=== PATIENT | female | born 1950 | race Caucasian/White ===

== ENCOUNTER 2017-09-03 17:00 | Inpatient (IN) | payer MEDICARE, OTHER, SELFPAY ==
[2017-09-03] VITALS (11 sets, daily range): BP systolic 103–136; BP diastolic 66–80; PULSE 80–110; RESP 14–20; TEMP 36.6–37.2; O2SAT 97–99; BMI 32.8; BMI 32.5
--- NOTE | 2017-09-03 17:09 | RAD_ITS ---
STUDY: X-RAY CHEST REASON FOR EXAM: Female, 67 years old. Chest pain TECHNIQUE: A single frontal view of the chest was obtained. COMPARISON: July 01, 2017 FINDINGS: There are minimal patchy opacities in the right upper lung. There is haziness of the left hemithorax. There are numerous surgical clips projected over the left chest. There is volume loss in the left lung. There is minimal blunting of the left costophrenic angle. The heart size cannot be evaluated. Sternotomy wires are now present. The mediastinum and hilar regions are unremarkable. Normal visualized pulmonary arteries. There are diffuse degenerative changes of the visualized thoracic spine. There are surgical changes in the cervical spine. There is an old fracture of the proximal left humerus. There is no demonstrated abnormality of the visualized upper abdomen. RAD/Chest 1 View (Portable) IMPRESSION: There are new surgical changes in the left chest. There is volume loss in the left lung. There is a small left pleural effusion. There is no evidence of pneumothorax. There are minimal patchy opacities in the right upper lung, and a developing consolidation cannot be excluded. Electronically Signed: Brooklyn Ndiaye MD at 18:28 EST Tel Direct: [phone], Service support ,
--- NOTE | 2017-09-03 17:09 | EKG12_ITS ---
Test Reason : CP Blood Pressure : / mmHG Vent. Rate : 105 BPM Atrial Rate : 105 BPM P-R Int : 148 ms QRS Dur : 080 ms QT Int : 324 ms P-R-T Axes : 055 004 105 degrees QTc Int : 428 ms Sinus tachycardia T wave abnormality, consider lateral ischemia Abnormal ECG Confirmed by ADAL MIRZA, JOSE ANGEL ([id number]), newspaper editor CONRADO GREY ([id number]) on 09/12/2017 1:10:47 PM Referred By: Confirmed By:JOSE ANGEL GALEAS MD
[2017-09-03] MEDS: Aspirin 81 MG TAB.CHEW 324 MG PO (17:21)
--- NOTE | 2017-09-03 17:46 | ED.VISSUMM ---
- ER Visit Summary Date of Service: 09/03/17 Chief Complaint: EKG changes History of Present Illness: The patient is a [address] Prieto and Dr. Bear. She reports that she has a history of a left upper lobectomy and rib removal 6 weeks ago at [facility]. She states that she has had a 20 pound weight gain since that time. She has had dyspnea on exertion for the past 6 weeks as well. She denies any chest pain. No nausea, vomiting, or diaphoresis. The patient was seen in the office today by Dr. Ho who performed an EKG and reports that it is much different than her prior EKG and sent her to the emergency department for admission. Physical Examination: Vitals: Stable. Afebrile. General: Well-nourished and well-developed. Head: Normocephalic atraumatic. Neck: Supple, no lymphadenopathy. No JVD. Nontender. Cardiovascular: Regular rate and rhythm. No murmurs. Sternal incision is clean, dry, and intact. It has healed well. Respiratory: No respiratory distress. Clear to auscultation bilaterally. Abdominal: Soft, nontender, nondistended, normal bowel sounds. No guarding, rebound, or peritoneal signs. Back: Nontender. Extremities: Nontender, 2+ pitting edema of her lower extremities bilaterally. Skin: Normal color, no rash. Neurologic: Alert and oriented ?3. Cranial nerves II through XII are intact. Normal strength and sensation. Psych: Normal affect. Test Results: EKG is sinus tach at 105 with T-wave inversions in leads I and aVL and V2. Minimal ST elevation in leads III and aVF. The patient was pain-free when this was obtained. Emergency Department Course and Treatment: The patient was treated with aspirin. I contacted Dr. Marquez shortly after her arrival to try to get a copy of her old EKG and her medical records had already closed. He states that the T-wave inversions are new. He feels that the patient needs to be admitted for an echocardiogram, rule out ACS, and cardiology consult. Patient reports that she has seen Dr. Chua of cardiology in the past. She had a stent placed in 2014. She reports that she had a stress test at [facility] in June 2017 prior to this lung surgery. Treatment Plan: This time the patient is going to be turned over to the care of the oncoming physician for follow-up on her labs and appropriate disposition. Disposition: Pending. Impression: 1. New T-wave inversions in leads I, aVL, and V2. 2. Peripheral edema. 3. Approximately 6 weeks status post left upper lobectomy. 4. Dyspnea on exertion. This note was generated with [employer] dictation software. It may contain incorrect words, spelling, and punctuation that were not noted in review of the chart prior to signing ED Disposition - Plan for ED Patient: Chief Complaint: Chest Pain Referrals: Sumit Prieto MD [Primary Care Provider] -
--- NOTE | 2017-09-03 17:54 | ED.DCSUM_ITS ---
- ER Visit Summary Date of Service: 09/03/17 Chief Complaint: EKG changes History of Present Illness: The patient is a [address] Prieto and Dr. Bear. She reports that she has a history of a left upper lobectomy and rib removal 6 weeks ago at [facility]. She states that she has had a 20 pound weight gain since that time. She has had dyspnea on exertion for the past 6 weeks as well. She denies any chest pain. No nausea, vomiting, or diaphoresis. The patient was seen in the office today by Dr. Ho who performed an EKG and reports that it is much different than her prior EKG and sent her to the emergency department for admission. Physical Examination: Vitals: Stable. Afebrile. General: Well-nourished and well-developed. Head: Normocephalic atraumatic. Neck: Supple, no lymphadenopathy. No JVD. Nontender. Cardiovascular: Regular rate and rhythm. No murmurs. Sternal incision is clean , dry, and intact. It has healed well. Respiratory: No respiratory distress. Clear to auscultation bilaterally. Abdominal: Soft, nontender, nondistended, normal bowel sounds. No guarding, rebound, or peritoneal signs. Back: Nontender. Extremities: Nontender, 2+ pitting edema of her lower extremities bilaterally. Skin: Normal color, no rash. Neurologic: Alert and oriented ?3. Cranial nerves II through XII are intact. Normal strength and sensation. Psych: Normal affect. Test Results: EKG is sinus tach at 105 with T-wave inversions in leads I and aVL and V2. Minimal ST elevation in leads III and aVF. The patient was pain- free when this was obtained. Emergency Department Course and Treatment: The patient was treated with aspirin. I contacted Dr. Marquez shortly after her arrival to try to get a copy of her old EKG and her medical records had already closed. He states that the T- wave inversions are new. He feels that the patient needs to be admitted for an echocardiogram, rule out ACS, and cardiology consult. Patient reports that she has seen Dr. Chua of cardiology in the past. She had a stent placed in 2014. She reports that she had a stress test at [facility] in June 2017 prior to this lung surgery. Treatment Plan: This time the patient is going to be turned over to the care of the oncoming physician for follow-up on her labs and appropriate disposition. Disposition: Pending. Impression: 1. New T-wave inversions in leads I, aVL, and V2. 2. Peripheral edema. 3. Approximately 6 weeks status post left upper lobectomy. 4. Dyspnea on exertion. This note was generated with [employer] dictation software. It may contain incorrect words, spelling, and punctuation that were not noted in review of the chart prior to signing ED Disposition - Plan for ED Patient: Chief Complaint: Chest Pain Referrals: Sumit Prieto MD [Primary Care Provider] -
[2017-09-03 18:00] LABS: Absolute Lymphocyte Count 1.16 X10^3/ul (0.83-4.51); Absolute Neutrophil Count 8.1 X10^3/uL (2.0-7.7); Basophil# 0.03 X10^3/uL; Basophil% 0.3 % (0-1); Eosinophil# 0.32 X10^3/uL; Hematocrit 30.8 % (37-47); Hemoglobin 9.8 g/dl (12.0-15.0); Lymphocyte # 1.16 X10^3/ul (4.0); Lymphocyte % 10.9 % (19-41); Mean Corp Hgb Conc 31.8 g/gl (32-36); Mean Corpuscular Hgb 31.3 pg (27.0-32.0); Mean Corpuscular Volume 98.4 fL (81-99); Monocyte# 1.02 X10^3/uL; Monocyte% 9.6 % (0-10); Neutrophil # 8.07 X10^3/uL (2.7-7.7); Neutrophil % 76.1 % (47-70); Platelet Count 315 K/mm3 (150-450); RBC Distribution Width SD 53.8 fl (35.1-43.9); Red Blood Count 3.13 M/mm3 (4.2-5.4); White Blood Count 10.6 K/mm3 (4.4-11.0)
[2017-09-03 18:01] LABS: POSITIVE COUNT NO; POSITIVE DIFFERENTIAL NO; POSITIVE MORPHOLOGY NO
[2017-09-03 18:22] LABS: Anion Gap 9 (5-15); BUN 13 mg/dL (7-18); BUN/Creat Ratio 11.5 RATIO (10-20); Calcium,Total 8.9 mg/dL (8.5-10.1); Chloride 96 mmol/L (98-107); Creatinine, Serum 1.13 mg/dL (0.55-1.02); EST Glomerular Filtration Rate 51 mL/min (>60); Est Glom Filt Rate - Afr Amer 62 mL/min (>60); Estimated Creatinine Clearance 42.86 ml/min; Glucose 174 mg/dL (70-110); Sodium Level 134 mmol/L (136-145)
[2017-09-03] MEDS: 0.9% Normal Saline 1,000 ML 150 ML IV (18:40)
--- NOTE | 2017-09-03 19:34 | HP.PCM_ITS ---
Problem List (1) Dyspnea on exertion Status: Acute (2) CAD (coronary artery disease) Status: Chronic Qualifiers: (3) H/O heart artery stent Status: Chronic Comment: x1 on 04/19/14 (4) Lung cancer Status: Chronic Qualifiers: (5) Obesity (BMI 30.0-34.9) Status: Chronic (6) Tobacco abuse, in remission Status: Chronic Comment: quit 2yrs ago History of Present Illness Date of Admission: 09/03/17 Chief Complaint: shortness of breath with exertion The patient is a 67 year old female patient status post left upper lobectomy for lung cancer in early July presents to the ER with shortness of breath on exertion. She was seen today in the office of Dr Prieto and and EKG showed new T wave inversions on anterior leads that weren't there prior to her surgery. She was sent in to the hospital for admission and further cardiac workup. She denies pain. She has no appetite but has had a reported 20lb weight gain since her surgery. No nausea , vomiting or diarrhea. She has requested to see Dr Hernandez for cardiology consult. She will be admitted to PCU for echocardiogram and cardiology consult. Past Medical History Past Medical History (Chronic Problems): Chronic Problems CAD (coronary artery disease) (Chronic) Goiter (Chronic) H/O heart artery stent (Chronic) x1 on 04/19/14 Lung cancer (Chronic) Obesity (BMI 30.0-34.9) (Chronic) Tobacco abuse, in remission (Chronic) quit 2yrs ago Allergies cephalexin Allergy (Verified 09/03/17 17:02) Rash Home Medications: Ambulatory Orders Medication Instructions Recorded Aspirin [Aspirin, Baby] 81 mg PO DAILY@0800 02/18/16 Atorvastatin Calcium [Lipitor] 80 mg PO QHS 02/18/16 Escitalopram Oxalate [Lexapro] 10 mg PO DAILY 02/18/16 Levothyroxine [Synthroid] 125 mcg PO DAILY 02/18/16 Metoprolol Tartrate [Lopressor 25 mg PO BID 02/18/16 (beta swati)] Albuterol Aerosols [Ventolin 2.5 mg INHALATION Q4HWA.RT 09/03/17 Aerosols] Albuterol Inhaler [Ventolin Hfa] 2 puff INHALATION 4X/DAY 09/03/17 Cholecalciferol (Vitamin D3) 5,000 unit PO DAILY 09/03/17 [Vitamin D3] Fentanyl [Fentanyl] 09/03/17 Furosemide [Lasix] 20 mg PO DAILY 09/03/17 Gabapentin [Neurontin] 09/03/17 HydromorphONE [Dilaudid] 4 mg PO Q3H PRN PRN 09/03/17 Iron Polysaccharide Complex 09/03/17 [Ferrex 150] Omeprazole [Omeprazole] 20 mg PO DAILY 09/03/17 Surgical History: - - Cardiac stent 04/19/14, hysterectomy, neck fusion, bladder suspension Psychiatric History: Depression DIVISION SERGEANT History: No pertinent DIVISION SERGEANT history Smoking Status: Never smoker - *Family History Maternal History Items: No pertinent history Paternal History Items: No pertinent history Sibling History Items: - - Brother with colon cancer age 53, sister with lung cancer- , sister #2 -CAD, COPD, DM Review of Systems Constitutional: Reports: Anorexia. Denies: Chills, Fever, Weight Change HEENT: Denies: Head Aches, Sinus Congestion, Sinus Drainage Cardiovascular: Denies: Chest Pain, Palpitations Respiratory: Reports: Shortness of breath at rest, Shortness of breath upon exertion. Denies: Cough, Sputum production, Wheezing Gastrointestinal: Denies: Abdominal Pain, Nausea, Vomiting Genitourinary: Denies: Dysuria Musculoskeletal: Denies: Joint Pain, Joint Tenderness Skin: Denies: Rash, Wounds Neurological: Denies: Numbness, Tingling, Focal weakness Psychiatric: Denies: Anxiety, Depression, Homicidal Ideations, Suicidal Ideations Hematologic/ Lymphatic: Denies: Easy Bruising, Easy Bleeding VTE Information - Inpt Only VTE Present on Admission: No VTE Mechan Device Prophylaxis: None VTE Pharm Prophylaxis ordered?: Yes Patient Problems: Active and Suspected Problems Dyspnea on exertion (Acute) - Physical Exam General: Alert, Oriented x3, Cooperative HEENT: Atraumatic, Normocephalic Neck: Supple Lungs: Clear to auscultation, Normal air movement Cardiovascular: Regular rate, Normal S1, Normal S2, No murmurs Abdomen: Bowel Sounds Present, Soft, Non Tender Extremities: No edema, Capillary Refill Less than 3 Seconds Skin: No rashes, No breakdown Musculoskeletal: No Tenderness to Palpation of Joints or Extremities Neurological: Neuro grossly intact Psych/Mental Status: Normal Affect, Appropriate Vital Signs Temp Pulse Resp BP Pulse Ox 98 F 80 14 134/70 99 09/03/17 17:01 09/03/17 19:15 09/03/17 19:15 09/03/17 19:15 09/03/17 19:15 Oxygen Flow Rate 2 Oxygen Delivery Method Room Air Weight: 191 lb Body Mass Index (BMI) 32.8 Laboratory Tests Past 24 Hrs 09/03/17 09/03/17 17:45 17:45 WBC 10.6 RBC 3.13 L Hgb 9.8 L Hct 30.8 L MCV 98.4 MCH 31.3 MCHC 31.8 L RDW 15.0 H RDW Differential 53.8 H Plt Count 315 MPV 9.0 Immature Gran % (Auto) 0.100 Neut % (Auto) 76.1 H Lymph % (Auto) 10.9 L [place] % (Auto) 9.6 Eos % (Auto) 3.0 Baso % (Auto) 0.3 Absolute Neuts (auto) 8.1 H Absolute Lymphs (auto) 1.16 Total Counted Not Reportable Sodium 134 L Potassium 4.0 Chloride 96 L Carbon Dioxide 29.0 Anion Gap 9 BUN 13 Creatinine 1.13 H Estim Creat Clear Calc 42.86 Est GFR (MDRD) Af Amer 62 Est GFR (MDRD) Non-Af 51 L BUN/Creatinine Ratio 11.5 Glucose 174 H Calcium 8.9 Troponin I < 0.02 Assessment/Plan Active and Suspected Problems Dyspnea on exertion (Acute) Chronic Problems CAD (coronary artery disease) (Chronic) Goiter (Chronic) H/O heart artery stent (Chronic) x1 on 04/19/14 Lung cancer (Chronic) Obesity (BMI 30.0-34.9) (Chronic) Tobacco abuse, in remission (Chronic) quit 2yrs ago Plan - admit to Progressive Care Unit - cycle cardiac markers - echocardiogram in am - consult Dr Hernandez for cardiology evaluation - continue routine home medications - LMWH for DVT prophylaxis - morphine,oxygen, nitro and aspirin ordered ordered per routine
[2017-09-03] MEDS: Albuterol 2.5 MG/3 ML VIAL.NEB. INHALATION (23:01)
[2017-09-03] MEDS: Atorvastatin Calcium 80 MG Tablet PO (23:19)
[2017-09-03] MEDS: Metoprolol Tartrate 25 MG Tablet PO (23:19)
[2017-09-03] MEDS: Escitalopram Oxalate 10 MG Tablet PO (23:19)
[2017-09-04] VITALS (15 sets, daily range): BP systolic 131–141; BP diastolic 86–92; PULSE 95–122; RESP 16–20; TEMP 36.6–37.5; O2SAT 94–98
[2017-09-04 05:20] LABS: Hematocrit 29.5 % (37-47); Hemoglobin 9.5 g/dl (12.0-15.0); Mean Corp Hgb Conc 32.2 g/gl (32-36); Mean Corpuscular Hgb 31.6 pg (27.0-32.0); Mean Platelet Vol. 8.1 fl (6.2-12.0); Platelet Count 320 K/mm3 (150-450); RBC Distribution Width CV 14.6 % (11.6-14.6); RBC Distribution Width SD 49.9 fl (35.1-43.9); Red Blood Count 3.01 M/mm3 (4.2-5.4); White Blood Count 8.3 K/mm3 (4.4-11.0)
[2017-09-04 05:21] LABS: Scan Indicated on CBC? Y/N NO
[2017-09-04] MEDS: Levothyroxine 125 MCG Tablet PO (05:22)
--- NOTE | 2017-09-04 05:30 | EKG12_ITS ---
Test Reason : AM Blood Pressure : / mmHG Vent. Rate : 113 BPM Atrial Rate : 113 BPM P-R Int : 164 ms QRS Dur : 080 ms QT Int : 324 ms P-R-T Axes : 050 003 097 degrees QTc Int : 444 ms Sinus tachycardia T wave abnormality, consider lateral ischemia Abnormal ECG When compared with ECG of 03-SEP-2017 17:08, MANUAL COMPARISON REQUIRED, DATA IS UNCONFIRMED Confirmed by ADAL MIRZA, JOSE ANGEL ([id number]), editorial assistant CONRADO GREY ([id number]) on 09/10/2017 3:30:24 PM Referred By: SUSI Confirmed By:JOSE ANGEL GALEAS MD
[2017-09-04 05:37] LABS: Anion Gap 8 (5-15); BUN 12 mg/dL (7-18); BUN/Creat Ratio 12.4 RATIO (10-20); Calcium,Total 8.9 mg/dL (8.5-10.1); Chloride 101 mmol/L (98-107); Creatinine, Serum 0.97 mg/dL (0.55-1.02); EST Glomerular Filtration Rate 61 mL/min (>60); Est Glom Filt Rate - Afr Amer 74 mL/min (>60); Estimated Creatinine Clearance 49.93 ml/min; Glucose 124 mg/dL (70-110); Potassium 4.1 mmol/L (3.5-5.1); Sodium Level 139 mmol/L (136-145)
--- NOTE | 2017-09-04 05:55 | ECHOCS_ITS ---
Reason For Study: dyspnea/SOB Procedure This was a 2D Doppler, Color Flow transthoracic echocardiogram. The study was technically difficult. The study was technically limited. Contrast injection was performed. Exam performed portable in patient room. Left Ventricle Normal LV size. Left ventricular systolic function is normal. The estimated ejection fraction is 65 %. No regional wall motion abnormalities noted. Right Ventricle Normal RV size. Normal systolic function. Atria The left atrium is mildly enlarged. Normal right atrium. Mitral Valve Mitral valve not well visualized. Tricuspid Valve The tricuspid valve is not well visualized. Aortic Valve The aortic valve is not well visualized. Pulmonic Valve The pulmonic valve is not well visualized. Great Vessels Normal aortic root. The pulmonary artery is normal size. Normal inferior vena cava. Pericardium/Pleural No pericardial effusion. Medication Definity0.5ml given slow IV push to enhance endocardial definition. MMode/2D Measurements & Calculations LVIDd: 4.5 cm IVSd: 1.00 cm Ao root diam: 2.7 cm LVIDs: 2.7 cm LVPWd: 1.00 cm LA dimension: 3.8 cm RVDd: 3.2 cm FS: 39.5 % LAV(MOD-bp): 58.9 ml LAV(MOD-bp) Indexed: 30.8 ml/m2 LA A4 area: 22.7 cm2 RA A4 area: 11.7 cm2 LAV(MOD-sp2): 34.7 ml LAV(MOD-sp4): 63.4 ml Doppler Measurements & Calculations MV E max julius: 97.0 cm/sec Lat Peak E' Julius: 10.3 cm/sec Ao V2 max: 99.4 cm/sec MV A max julius: 137.8 cm/sec E/E' lat: 9.4 Ao max P.0 mmHg MV E/A: 0.70 LV V1 max: 76.5 cm/sec PA V2 max: 90.6 cm/sec TR max julius: 259.3 cm/sec LV V1 max P.3 mmHg TR max P.9 mmHg Interpretation Summary Normal LV size. Left ventricular systolic function is normal. The estimated ejection fraction is 65 %. Contrast injection was performed. Ordering Physician: Sumeet Velazquez Referring Physician: Yfn Bear Performed By: Marichuy Stark RDCS, RVT
--- NOTE | 2017-09-04 08:46 | STRESSREP ---
Stress Test Report - Stress Test Report Stress Test Report: Pharmacologic myocardial perfusion stress test 67-year-old lady with a history of EKG abnormalities. Stress protocol: Resting EKG demonstrates sinus tachycardia with a rate of 111 bpm. Resting blood pressure is 138/82 mmHg. A 0.4 mg of regadenoson was infused per usual protocol followed by rapid intravenous saline flush injection. Continuous EKG monitoring was performed. At rest there were nonspecific ST-T wave changes noted at peak infusion nonspecific ST-T wave changes were noted. The maximum heart rate attained was 137 bpm which was 88% of the maximum predicted heart rate the maximum workload attained was 1 metabolic equivalents. The resting blood pressure was 138/82 with a peak blood pressure 152/80. Myocardial perfusion protocol. 14.1 mCi of technetium 99m sestamibi was injected at rest. 0.4 mg of regadenoson was infused per usual protocol. At peak infusion 43.6 mCi of technetium 99m sestamibi was injected. Stress images were obtained. Stress and rest images were reconstructed and compared in the short axis vertical long and horizontal long axis. Gated images were also obtained. Gated SPECT analysis: Gated ejection fraction is 69% Conclusion: Normal pharmacologic myocardial perfusion stress test. Preserved ejection fraction.
[2017-09-04] MEDS: Metoprolol Tartrate 25 MG Tablet PO ×2 (09:19→21:31)
[2017-09-04] MEDS: Pantoprazole Sodium 20 MG Tablet PO (09:20)
[2017-09-04] MEDS: Furosemide 20 MG Tablet PO (09:20)
[2017-09-04] MEDS: Aspirin 81 MG TAB.CHEW PO (09:20)
[2017-09-04] MEDS: Enoxaparin 40 MG/0.4 ML Syringe SC (09:20)
--- NOTE | 2017-09-04 09:43 | CASEMGMT ---
Addendum entered by Leslie Sanford 09/04/17 13:22: This RN CM to bedside to complete CM assessment and physical chemist is at bedside with pt at this time. Will attempt again later. Priya FU CM Original Note: Addendum entered by Leslie Sanford 09/04/17 11:14: This RN CM to bedside to complete CM assessment and pt is currently getting any ECHO at this time. Priya FU CM Original Note: This RN CM to bedside to complete assessment and pt is sleeping without distress. Pt does not awaken to verbal stimuli or knock on the door. Will attempt again later. Priya FU CM
[2017-09-04] MEDS: Albuterol 2.5 MG/3 ML VIAL.NEB. INHALATION ×3 (10:39→19:25)
--- NOTE | 2017-09-04 14:53 | CASEMGMT ---
Face to Face with patient for initial transition planning/care coordination assessment. [place] introduced self and role at [facility], pt voices understanding and consents to assessment at this time. Pt lying in bed in no distress at this time. Pt A/O x4 at this time and answers all questions appropriately but does fall back to sleep when not stimulated verbally. Care providers, pharmacy, and demographics verified. See attached link. Pt voices no further concerns/needs at this time. Advised pt to ask for CM if any further questions/concerns/needs arise, voices understanding. CM to follow for any further discharge planning/needs. [place]
--- NOTE | 2017-09-04 15:20 | CHAPLAIN ---
Type of Pastoral Visit _x__ Initial Visit ___ Follow-up Visit ___ On-call Visit ___ General Patient Visit ___ Spiritual Assessment ___ Family Conference ___ Bereavement ___ Rapid Response ___ Code Blue ___ Other (describe below) Pastoral Care Referral From _x__ Patient ___ Family ___ Nurse ___ Physician ___ [employer] Aircraft Mechanic ___ Leather Worker ___ Other (describe below) Sacrament/Intervention _x__ Active listening ___ Anointing ___ Mu-Ism ___ Bereavement ___ Communion _x__ Juil exploration ___ ___ Life review _x__ Prayer ___ Reconciliation ___ Sacrament of Sick _x__ Supportive presence ___ Wedding ___ Other (describe below) Pastoral Comments
--- NOTE | 2017-09-04 15:54 | CT_ITS ---
STUDY: CTA CHEST REASON FOR EXAM: Female, 67 years old. Chest pain, shortness of breath, history of lung cancer RADIATION DOSAGE (If Supplied By Facility): CTDIvol = ( 11.43 ) mGy, DLP = ( 504.98 ) mGycm TECHNIQUE: The examination was performed with the intravenous administration of 75 ml of Isovue 370 contrast material. Post-processing of the angiographic images was performed, with multiplanar reformation and 3D reconstruction. Individualized dose optimization techniques were used for this CT. COMPARISON: PET/CT scan dated April 02, 2017 FINDINGS: Normal enhancement of the main pulmonary artery and right and left pulmonary arteries. Normal enhancement of the bilateral peripheral pulmonary arteries. There is no demonstrated pulmonary embolism. There are minimal calcifications in the thoracic aorta. The aorta is normal in diameter. There is no demonstrated aortic dissection. The heart is normal in size. Coronary artery calcifications are present. There are surgical changes in the left upper mediastinum. There are surgical changes in the left hilum. Normal visualized trachea and bronchi. There is volume loss on the left side after left upper lobectomy. There are patchy airspace opacities scattered in the right upper lobe and superior segment of the left lower lobe. There are coarse markings in the posterior segment of the right lower lobe. There is minimal pleural thickening in the left hemithorax. There is scarring along the left chest wall. There are surgical changes in the cervical spine. Sternotomy wires are present. There are moderate degenerative changes in the visualized spine. There are rib abnormalities in numerous anterior left ribs after surgery. There are no acute abnormalities in the upper abdomen. CT/CTA Chest W/WO Contrast IMPRESSION: No evidence of pulmonary embolism. There are surgical changes on the left side after left upper lobectomy. There are patchy airspace opacities scattered in the right upper lobe and superior segment of the left lower lobe showing air bronchograms. These areas are worrisome for infection. There is no pleural effusion or significant lymphadenopathy. There is minimal atelectasis in the right lower lobe. Electronically Signed: Brooklyn Ndiaye MD at 19:00 EST Tel Direct: [phone], Service support ,
--- NOTE | 2017-09-04 17:39 | NURSING ---
To CT per WC
[2017-09-04 18:38] LABS: Thyroid Stim Hormone (TSH) 1.01 uIU/mL (0.358-3.74)
[2017-09-04] MEDS: Atorvastatin Calcium 80 MG Tablet PO (21:31)
[2017-09-04] MEDS: Escitalopram Oxalate 10 MG Tablet PO (21:32)
[2017-09-04] MEDS: HYDROmorphone 2 MG TABLET 4 MG PO (21:55)
--- NOTE | 2017-09-04 22:03 | PN_ITS ---
Patient Problems: Active and Suspected Problems Dyspnea on exertion (Acute) Subjective: Patient is a 67-year-old female with past medical history of lung cancer, status post left upper lobe lobectomy on 07-31, coronary artery disease, PTCA with stent on 04/19/2014, cervical fusion, COPD, obesity, former smoker and hypothyroidism who was sent to [facility] emergency room by Dr. Ho on 09/03 because of dyspnea on exertion with an EKG showing new T-wave inversions the anterior leads. Vital signs at presentation to the ER were temperature 98, pulse rate 105, blood pressure 128/66, respiratory rate of 19 and she was 99% saturated on a 2 L nasal cannula and 99% saturated on room air. Blood cell count was normal at 10.6 with 76% neutrophils. Hemoglobin was 9.8 and the platelets are 315,000. Sodium was mildly decreased at 134 with a chloride of 96 and a creatinine of 1.13 with a BUN of 13. She admits to having decreased appetite and stated that she has lost 20 pounds since her surgery. Random blood sugar was 174 at admission. She will troponin was less than 0.02. Chest x-ray shows patchy opacities in the right upper lobe and a small left pleural effusion. Serial cardiac enzymes were negative and she had a pharmacologic nuclear stress test that was negative for ischemia and the gated nuclear ejection fraction was 69%. Telemetry showed no significant ectopy. Heart rate since midnight has ranged from 101 to 122. She is now 96% saturated on a 4 L nasal cannula. CTA of the chest was negative for pulmonary emboli but does show patchy opacities in the right upper lobe and the superior segment of the left lower lobe. she feels SOB and she has been coughing. she denies CP. No nausea, vomiting, no abd pain, no sore throat. - Physical Exam General: Alert, Oriented x3, Cooperative, - - She looks very fatigued HEENT: Atraumatic, PERRLA Oral: Moist Mucosa, No Gingival or Mucosal Lesions/ Ulcerations Neck: Supple Lungs: No wheeze, Rhonchi - in the RUL posteriorly initially and these did clear somewhat after a few deep breaths, no rales Cardiovascular: Regular Rhythm, Normal S1, Normal S2, No murmurs, No Gallop, Tachycardic Abdomen: Bowel Sounds Present, Soft, Non Tender, Non-Distended Extremities: No cyanosis, No edema Skin: No rashes, No breakdown Neurological: Cranial nerves II-XII grossly intact, Neuro grossly intact Psych/Mental Status: Normal Affect, Appropriate Vital Signs Temp Pulse Resp BP Pulse Ox 99.5 F 122 16 133/86 96 09/04/17 20:51 09/04/17 21:31 09/04/17 20:51 09/04/17 20:51 09/04/17 20:51 Oxygen Flow Rate 4 Oxygen Delivery Method Nasal Cannula Weight: 189 lb 9.561 oz Body Mass Index (BMI) 32.5 Intake and Output for Last 24 Hours 09/02/17 09/03/17 09/04/17 23:59 23:59 23:59 Intake Total 220 505 Output Total 350 Balance 220 155 Laboratory Tests Past 24 Hrs 09/03/17 09/04/17 09/04/17 21:33 01:32 05:10 WBC 8.3 RBC 3.01 L Hgb 9.5 L Hct 29.5 L MCV 98.0 MCH 31.6 MCHC 32.2 RDW 14.6 RDW Differential 49.9 H Plt Count 320 MPV 8.1 Sodium Potassium Chloride Carbon Dioxide Anion Gap BUN Creatinine Estim Creat Clear Calc Est GFR (MDRD) Af Amer Est GFR (MDRD) Non-Af BUN/Creatinine Ratio Glucose Calcium Troponin I < 0.02 < 0.02 TSH 09/04/17 09/04/17 09/04/17 05:10 08:30 08:30 WBC RBC Hgb Hct MCV MCH MCHC RDW RDW Differential Plt Count MPV Sodium 139 Potassium 4.1 Chloride 101 Carbon Dioxide 30.0 Anion Gap 8 BUN 12 Creatinine 0.97 Estim Creat Clear Calc 49.93 Est GFR (MDRD) Af Amer 74 Est GFR (MDRD) Non-Af 61 BUN/Creatinine Ratio 12.4 Glucose 124 H Calcium 8.9 Troponin I < 0.02 TSH 1.01 Assessment/Plan Active and Suspected Problems Dyspnea on exertion (Acute) Impressions 1. tachycardia with dyspnea on exertion with a negative stress, normal TSH, negative CTA for PE's.....suspect pneumonia and will need to treat for HAP since she was in the hospital 6 weeks ago for CARY lobectomy for lung CA. Will start Levaquin and Vanco and order cultures, sputum culture, respiratory panel, urine for Legionella and streptococcal antigens and an MRSA nasal swab. IS 2. lung CA with CARY lobectomy 07-31. 3. Elevated blood sugar with no history of diabetes mellitus - check hgba1c 4. Coronary artery disease with history of coronary stent on 04/19/2014. 5. Obesity 6. 20 pound weight loss since 07/16/17 7. HAP 8. Tobacco abuse, in remission 9. Hypothyroidism 10. anxiety/depression-continue Lexapro 11. Dyslipidemia 12. COPD 13. hx of cervical fusion - likely also has radiculopathy since she is on gabapentin will discuss with Dr. Prieto in the AM
[2017-09-05] VITALS (15 sets, daily range): BP systolic 117–141; BP diastolic 77–88; PULSE 94–132; RESP 16–20; TEMP 36.6–37.4; O2SAT 93–96
--- NOTE | 2017-09-05 01:02 | NURSING ---
09/04/17 2340 THIS RN ATTEMPTED X 3 TO GET IV SITE, CALLED [employer] TO START.
[2017-09-05] MEDS: HYDROmorphone 2 MG TABLET 4 MG PO ×4 (01:35→20:33)
[2017-09-05] MEDS: Levothyroxine 125 MCG Tablet PO (05:48)
[2017-09-05 06:08] LABS: ALB/GLOB Ratio 0.5 RATIO (0.9-2.4); AST(SGOT) 18 U/L (15-37); Alanine Aminotransfer ALT/SGPT 14 U/L (12-78); Albumin, Serum 2.5 g/dL (3.4-5.0); Alkaline Phosphatase 101 U/L (45-117); Anion Gap 9 (5-15); BUN 10 mg/dL (7-18); BUN/Creat Ratio 11.3 RATIO (10-20); Calcium,Total 8.6 mg/dL (8.5-10.1); Chloride 100 mmol/L (98-107); Creatinine, Serum 0.88 mg/dL (0.55-1.02); EST Glomerular Filtration Rate 68 mL/min (>60); Est Glom Filt Rate - Afr Amer 83 mL/min (>60); Estimated Creatinine Clearance 55.04 ml/min; Globulin 4.7 g/dL (2.2-4.2); Glucose 129 mg/dL (70-110); Magnesium 1.9 mg/dL (1.8-2.4); Phosphorus 3.4 mg/dL (2.5-4.9); Potassium 3.7 mmol/L (3.5-5.1); Protein, Total 7.2 g/dL (6.4-8.2); Sodium Level 138 mmol/L (136-145)
[2017-09-05 06:12] LABS: Absolute Lymphocyte Count 0.52 X10^3/ul (0.83-4.51); Absolute Neutrophil Count 5.9 X10^3/uL (2.0-7.7); Basophil# 0.04 X10^3/uL; Basophil% 0.5 % (0-1); Eosinophil# 0.28 X10^3/uL; Eosinophils% 3.4 % (0-5); Hematocrit 28.8 % (37-47); Hemoglobin 9.2 g/dl (12.0-15.0); Lymphocyte # 0.52 X10^3/ul (4.0); Lymphocyte % 6.2 % (19-41); Mean Corp Hgb Conc 31.9 g/gl (32-36); Mean Corpuscular Hgb 31.1 pg (27.0-32.0); Mean Corpuscular Volume 97.3 fL (81-99); Mean Platelet Vol. 8.5 fl (6.2-12.0); Monocyte% 19.2 % (0-10); Neutrophil # 5.89 X10^3/uL (2.7-7.7); Neutrophil % 70.5 % (47-70); Platelet Count 343 K/mm3 (150-450); RBC Distribution Width CV 14.4 % (11.6-14.6); RBC Distribution Width SD 48.9 fl (35.1-43.9); Red Blood Count 2.96 M/mm3 (4.2-5.4); White Blood Count 8.4 K/mm3 (4.4-11.0)
[2017-09-05 06:14] LABS: Differential Indicated SCAN CRITERIA MET; POSITIVE COUNT NO; POSITIVE DIFFERENTIAL YES; POSITIVE MORPHOLOGY NO
[2017-09-05] MEDS: Albuterol 2.5 MG/3 ML VIAL.NEB. INHALATION ×3 (07:15→19:41)
--- NOTE | 2017-09-05 07:16 | PN_ITS ---
Patient Problems: Active and Suspected Problems Dyspnea on exertion (Acute) Subjective: Day #2 vancomycin and Levaquin All events of the past 24 hours have been reviewed. Stress test was negative for ischemia. Ejection fraction is preserved. CTA of the chest was negative for pulmonary emboli but positive for patchy infiltrates in the right upper lobe and the left lower lobe. Patient was started on Levaquin and vancomycin for hospital-acquired pneumonia. She is afebrile with a temp of 98 today. HR goes up as high as 150'-160's at times and it is regular. She is 99% on a 2 L nasal cannula currently. Fluid balance since admission is +5 L. She is complaining of sweats, feeling hot and then cold. she has a cough but the sputum looks mostly clear. She denies CP but admits to having SOB. She states that the pain in the left ankle has now spread up the medial calf. MRSA, respiratory panel, Legionella and streptococcal antigens are all negative. Influenza swab is negative. The MRSA nasal swab is negative. - Physical Exam General: Alert, Oriented x3, Cooperative, - - she looks pale and very fatigued. she is diaphoretic HEENT: Atraumatic, PERRLA, Normocephalic Oral: Moist Mucosa Neck: Supple, JVD, Bilateral - mild Lungs: Clear to auscultation, No rhonchi, No wheeze, No rales, Diminished Cardiovascular: Regular Rhythm, No rub noted, No Gallop, Tachycardic Abdomen: Bowel Sounds Present, Soft, Non Tender, Non-Distended Extremities: Edema - ankles. There is no erythema or increased warmth Left ankle and she has no hyperaesthesia. There is negative homans and negative jahaira. Neurological: Cranial nerves II-XII grossly intact, Neuro grossly intact Vital Signs Temp Pulse Resp BP Pulse Ox 99.4 F 107 16 132/82 96 09/05/17 05:41 09/05/17 05:41 09/05/17 05:41 09/05/17 05:41 09/05/17 05:41 Oxygen Flow Rate 2 Oxygen Delivery Method Nasal Cannula Weight: 189 lb 9.561 oz Body Mass Index (BMI) 32.5 Intake and Output for Last 24 Hours 09/03/17 09/04/17 09/05/17 23:59 23:59 23:59 Intake Total 220 745 425 Output Total 850 Balance 220 -105 425 Microbiology Past 72 Hours 09/04/17 23:30 Influenza Types A,B Direct FA (NINO) - Final Mucosa - Nose 09/04/17 Unknown Streptococcus pneumoniae Antigen (M - Final Urine, Clean Catch 09/04/17 Unknown Legionella Antigen - Final Urine, Clean Catch Laboratory Tests Past 24 Hrs 09/04/17 09/04/17 09/04/17 08:30 08:30 22:35 WBC RBC Hgb Hct MCV MCH MCHC RDW RDW Differential Plt Count MPV Immature Gran % (Auto) Neut % (Auto) Lymph % (Auto) Morrison % (Auto) Eos % (Auto) Baso % (Auto) Absolute Neuts (auto) Absolute Lymphs (auto) Total Counted Sodium Potassium Chloride Carbon Dioxide Anion Gap BUN Creatinine Estim Creat Clear Calc Est GFR (MDRD) Af Amer Est GFR (MDRD) Non-Af BUN/Creatinine Ratio Glucose Hemoglobin A1c 7.0 H Calcium Phosphorus Magnesium Total Bilirubin AST ALT Alkaline Phosphatase Troponin I < 0.02 Total Protein Albumin Globulin Albumin/Globulin Ratio TSH 1.01 MRSA (PCR) 09/05/17 09/05/17 09/05/17 05:20 05:20 06:00 WBC 8.4 RBC 2.96 L Hgb 9.2 L Hct 28.8 L MCV 97.3 MCH 31.1 MCHC 31.9 L RDW 14.4 RDW Differential 48.9 H Plt Count 343 MPV 8.5 Immature Gran % (Auto) 0.200 Neut % (Auto) 70.5 H Lymph % (Auto) 6.2 L Morrison % (Auto) 19.2 H Eos % (Auto) 3.4 Baso % (Auto) 0.5 Absolute Neuts (auto) 5.9 Absolute Lymphs (auto) 0.52 L Total Counted Not Reportable Sodium 138 Potassium 3.7 Chloride 100 Carbon Dioxide 29.0 Anion Gap 9 BUN 10 Creatinine 0.88 Estim Creat Clear Calc 55.04 Est GFR (MDRD) Af Amer 83 Est GFR (MDRD) Non-Af 68 BUN/Creatinine Ratio 11.3 Glucose 129 H Hemoglobin A1c Calcium 8.6 Phosphorus 3.4 Magnesium 1.9 Total Bilirubin 0.50 AST 18 ALT 14 Alkaline Phosphatase 101 Troponin I Total Protein 7.2 Albumin 2.5 L Globulin 4.7 H Albumin/Globulin Ratio 0.5 L TSH MRSA (PCR) Pending Assessment/Plan Active and Suspected Problems Dyspnea on exertion (Acute) Impressions 1. tachycardia with dyspnea on exertion with a negative stress, normal TSH, negative CTA for PE's.....suspect pneumonia and will need to treat for HAP since she was in the hospital 6 weeks ago for CARY lobectomy for lung CA. Will start Levaquin and Vanco and order cultures, sputum culture, respiratory panel, urine for Legionella and streptococcal antigens and an MRSA nasal swab. IS 2. lung CA with CARY lobectomy 07-31. 3. Elevated blood sugar with no history of diabetes mellitus - check hgba1c 4. Coronary artery disease with history of coronary stent on 04/19/2014. 5. Obesity 6. 20 pound weight loss since 07/16/17 7. HAP 8. Tobacco abuse, in remission 9. Hypothyroidism 10. anxiety/depression-continue Lexapro 11. Dyslipidemia 12. COPD 13. hx of cervical fusion - likely also has radiculopathy since she is on gabapentin DC the Vanco Increase the Metoprolol to 50 mg BID US of the LLE and xrays of the ankle and tib fib Continue Levaquin Await the results of the sputum Gram stain...... if no significant white blood cells will likely discharge on if she is able to ambulate and care for herself.
[2017-09-05 07:47] LABS: M R Staph aureus DNA By PCR Negative (Negative); Probe Check PASS; Specimen Processing Control PASS
--- NOTE | 2017-09-05 08:08 | PCM.RX.CS ---
Subjective/Objective Date: 09/05/17 Time: 08:08 Antibiotic: Levofloxacin, Vancomycin Type of Consult: New start Indications for Therapy: Suspected Pneumonia Labs: Sodium 138 mmol/L (136-145) 09/05/17 05:20 Potassium 3.7 mmol/L (3.5-5.1) 09/05/17 05:20 Chloride 100 mmol/L (98-107) 09/05/17 05:20 Carbon Dioxide 29.0 mmol/L (21.0-32.0) 09/05/17 05:20 Anion Gap 9 (5-15) 09/05/17 05:20 BUN 10 mg/dL (7-18) 09/05/17 05:20 Creatinine 0.88 mg/dL (0.55-1.02) 09/05/17 05:20 Est GFR (MDRD) Af Amer 83 mL/min (>60) 09/05/17 05:20 Est GFR (MDRD) Non-Af 68 mL/min (>60) 09/05/17 05:20 BUN/Creatinine Ratio 11.3 RATIO (10-20) 09/05/17 05:20 Glucose 129 mg/dL (70-110) H 09/05/17 05:20 Pharmacy Plan for Drug Dosing: Goal vancomycin trough 15-20 mcg/mL. Patient given 1250mg IV x1, recommend to continue 1000mg IV q12h for est trough 17 mcg/mL. Check prior to 5th dose. Pharmacy Service will continue to monitor and adjust dosing as required. Pharmacy to order these labs: Trough - Vancomycin Labs to be done on (date): 09/07/17 Labs to be done (time): 10:00
[2017-09-05] MEDS: Furosemide 40 MG/4 ML Vial IV (09:59)
[2017-09-05] MEDS: 0.9% NaCl Peripheral Flush Adult/Peds IV (10:00)
[2017-09-05] MEDS: Aspirin 81 MG TAB.CHEW PO (10:00)
[2017-09-05] MEDS: Ondansetron 4 MG/2 ML Vial IV (10:00)
[2017-09-05] MEDS: Enoxaparin 40 MG/0.4 ML Syringe SC (10:00)
[2017-09-05] MEDS: Metoprolol Tartrate 50 MG Tablet PO ×2 (10:00→21:57)
[2017-09-05] MEDS: Pantoprazole Sodium 20 MG Tablet PO (10:02)
--- NOTE | 2017-09-05 11:52 | VDLE_ITS ---
Reason For Study: LLE swelling Procedure LEFT Exam performed portable in patient room. CFV is compressible, spontaneous, phasic, The exam was diagnostic. competent, and demonstrates normal A preliminary report was called and/or augmentation. faxed to U. FV is compressible, spontaneous, phasic, competent and demonstrates normal augmentation. POP V is compressible, spontaneous, phasic, competent and demonstrates normal augmentation. T/P Trunk is compressible. PTV is compressible. LT PerV is compressible. GSV is dilated and noncompressible below the knee. GSV is compressible above the knee and at SFJ. Rouleaux flow is noted in the GSV at SFJ. Interpretation Summary There is no evidence of left lower extremity deep vein thrombosis. Superficial thrombophlebitis left great saphenous vein. Cicular Slow flow noted at the saphenous femoral junction Ordering Physician: Yue Lewis Referring Physician: Yfn Bear Performed By: Marichuy Stark, ANGELA, RVT
--- NOTE | 2017-09-05 11:52 | RAD_ITS ---
STUDY: X-RAY - LEFT TIBIA AND FIBULA REASON FOR EXAM: Female, 67 years old. Lower extremity pain. TECHNIQUE: 3 view(s) of the tibia and fibula were obtained. COMPARISON: None. FINDINGS: Normal visualized tibia. Normal visualized fibula. Mild soft tissue swelling. RAD/Tibia & Fibula 2 Views IMPRESSION: Mild soft tissue swelling. Electronically Signed: Will Sanchez MD at 14:50 EST Tel [phone], Service support ,
[2017-09-05 12:43] LABS: Uric Acid 5.3 mg/dL (2.6-6.0)
[2017-09-05] MEDS: Atorvastatin Calcium 80 MG Tablet PO (21:57)
[2017-09-05] MEDS: Escitalopram Oxalate 10 MG Tablet PO (21:57)
[2017-09-05] MEDS: fentaNYL 25 MCG Patch TRANSDERM. (23:21)
[2017-09-05] MEDS: 0.9% Normal Saline 1,000 ML 125 ML IV (23:21)
[2017-09-06] VITALS (8 sets, daily range): BP systolic 121–130; BP diastolic 73–79; PULSE 98–113; RESP 16–20; TEMP 36.6–37.8; O2SAT 94–96
[2017-09-06] MEDS: Levothyroxine 125 MCG Tablet PO (05:24)
[2017-09-06] MEDS: HYDROmorphone 2 MG TABLET 4 MG PO (05:35)
[2017-09-06] MEDS: Albuterol 2.5 MG/3 ML VIAL.NEB. INHALATION ×2 (07:03→10:20)
--- NOTE | 2017-09-06 10:35 | DCINST_ITS ---
- Discharge Diagnoses Current Active Problems: Current Active and Chronic Problems Dyspnea on exertion (Acute) You will use the following diet at home:: Calorie/Carbohydrate Controlled ( specify 1200, 1400, etc) Your food should be the consistency of: Regular Your liquids should be the consistency of: Regular/Thin Discharge Activity: Return to Normal Activity, May not drive while taking narcotic pain medications. Call your doctor if you observe: Fever of 101 or Higher, Fainting spells, Swelling in the ankles, Chest pain, Uncontrolled pain Instructions: Diabetes: Understanding Carbohydrates, Diabetes: Meal Planning Additional Instructions: You are diabetic. There is no need for medication at this time but, you should be following a carbohydrate controlled diet so you do not need medication in the future. The ultra sound of the left leg showed superficial thrombophlebitis distal to the knee. There is no need to treat this with blood thinners but you can use hot compresses for 10-15 minutes 3-4 times daily for relief of pain. I am discharging you on an antibiotic called Levaquin....you will take it once daily until gone. The chest XRAY and CT are difficult to interpret. I think you have pneumonia but, Dr. Segovia thinks the changes in the XRAY are due to radiation. At any rate you are feeling better so I think we should continue th antibiotic for 5 days. It may be beneficial to repeat the chest XRAY in 3-4 weeks to see if the patchy opacities in the right upper lung are still there. The stress test was negative and the ECHO shows that the heart squeezes normally. You have no blood clots in the lung. Take care and Happy Thanksgiving. Allergies/Adverse Reactions: Allergies cephalexin Allergy (Verified 09/03/17 17:02) Rash Medications to take at Discharge Aspirin [Aspirin, Baby] 81 mg PO DAILY@0800 02/18/16 Atorvastatin Calcium [Lipitor] 80 mg PO QHS 02/18/16 Escitalopram Oxalate [Lexapro] 10 mg PO QHS 02/18/16 Levothyroxine [Synthroid] 125 mcg PO DAILY 02/18/16 Metoprolol Tartrate [Lopressor (beta swait)] 25 mg PO BID 02/18/16 Albuterol Aerosols [Ventolin Aerosols] 2.5 mg INHALATION Q4HWA.RT 09/03/17 Albuterol Inhaler [Ventolin Hfa] 2 puff INHALATION 4X/DAY PRN 09/03/17 Cholecalciferol (Vitamin D3) [Vitamin D3] 5,000 unit PO DAILY 09/03/17 Docusate Calcium [Stool Softener] 240 mg PO TID 09/03/17 Fentanyl 25 mcg TOPICAL Q3D 09/03/17 Furosemide [Lasix] 20 mg PO DAILY 09/03/17 Gabapentin [Neurontin] 400 mg PO QHS 09/03/17 HydromorphONE [Dilaudid] 4 mg PO Q3H PRN PRN 09/03/17 Iron Polysaccharide Complex [Ferrex 150] 150 mg PO BID 09/03/17 Omeprazole 20 mg PO DAILY 09/03/17 Levofloxacin [Levaquin] 500 mg PO DAILY #5 tablet 09/06/17 The following prescriptions were given: Levofloxacin [Levaquin] 500 mg PO DAILY #5 tablet Primary Care Physician: Sumit Prieto MD [STAFF PHYSICIAN] - Please follow up with your Primary Care Physician in: 2 weeks Please Follow Up With: thoarcic surgeon When: next week as previously arranged Please Follow Up With: Jose R Bear MD When: in 7-10 days Proposed Discharge Date: 09/06/17
[2017-09-06] MEDS: Metoprolol Tartrate 50 MG Tablet PO (10:39)
[2017-09-06] MEDS: Aspirin 81 MG TAB.CHEW PO (10:40)
[2017-09-06] MEDS: Pantoprazole Sodium 20 MG Tablet PO (10:40)
--- NOTE | 2017-09-06 10:48 | PCM.DC.SUM ---
Discharge Date and Diagnosis - Problem List Patient Problems: Active and Suspected Problems Diabetes mellitus type 2 in obese (Acute) Dyspnea on exertion (Acute) HAP (hospital-acquired pneumonia) (Acute) Superficial thrombophlebitis of left leg (Acute) Date of Admission: 09/05/17 Date of Discharge: 09/06/17 - Primary Discharge Diagnosis Active and Suspected Problems Dyspnea on exertion (Acute) HAP (hospital-acquired pneumonia) (Acute) Superficial thrombophlebitis of left leg (Acute) Diabetes mellitus type 2 in obese (Acute) - Secondary Discharge Diagnosis Chronic Problems COPD (chronic obstructive pulmonary disease) (Chronic) History of lobectomy of lung (Chronic) S/P cervical spinal fusion (Chronic) CAD (coronary artery disease) (Chronic) Goiter (Chronic) H/O heart artery stent (Chronic) x1 on 04/19/14 Lung cancer (Chronic) Obesity (BMI 30.0-34.9) (Chronic) Tobacco abuse, in remission (Chronic) quit 2yrs ago Hospital Course and Treatment Imaging Results: Clinical Impression(s) from Imaging Studies Chest X-Ray 09/03/17 17:09 IMPRESSION: There are new surgical changes in the left chest. There is volume loss in the left lung. There is a small left pleural effusion. There is no evidence of pneumothorax. There are minimal patchy opacities in the right upper lung, and a developing consolidation cannot be excluded. Electronically Signed: Brooklyn Ndiaye MD at 18:28 EST Tel Direct: [phone], Service support , Chest CTA 09/04/17 15:54 IMPRESSION: No evidence of pulmonary embolism. There are surgical changes on the left side after left upper lobectomy. There are patchy airspace opacities scattered in the right upper lobe and superior segment of the left lower lobe showing air bronchograms. These areas are worrisome for infection. There is no pleural effusion or significant lymphadenopathy. There is minimal atelectasis in the right lower lobe. Electronically Signed: Brooklyn Ndiaye MD at 19:00 EST Tel Direct: [phone], Service support , Tibia/Fibula X-Ray 09/05/17 11:52 IMPRESSION: Mild soft tissue swelling. Electronically Signed: Will Sanchez MD at 14:50 EST Tel [phone], Service support , Laboratory Last Values WBC 8.4 K/mm3 (4.4-11.0) 09/05/17 05:20 RBC 2.96 M/mm3 (4.2-5.4) L 09/05/17 05:20 Hgb 9.2 g/dl (12.0-15.0) L 09/05/17 05:20 Hct 28.8 % (37-47) L 09/05/17 05:20 MCV 97.3 fL (81-99) 09/05/17 05:20 MCH 31.1 pg (27.0-32.0) 09/05/17 05:20 MCHC 31.9 g/gl (32-36) L 09/05/17 05:20 RDW 14.4 % (11.6-14.6) 09/05/17 05:20 RDW Differential 48.9 fl (35.1-43.9) H 09/05/17 05:20 Plt Count 343 K/mm3 (150-450) 09/05/17 05:20 MPV 8.5 fl (6.2-12.0) 09/05/17 05:20 Immature Gran % (Auto) 0.200 % (0.0-0.9) 09/05/17 05:20 Neut % (Auto) 70.5 % (47-70) H 09/05/17 05:20 Lymph % (Auto) 6.2 % (19-41) L 09/05/17 05:20 [place] % (Auto) 19.2 % (0-10) H 09/05/17 05:20 Eos % (Auto) 3.4 % (0-5) 09/05/17 05:20 Baso % (Auto) 0.5 % (0-1) 09/05/17 05:20 Absolute Neuts (auto) 5.9 X10^3/uL (2.0-7.7) 09/05/17 05:20 Absolute Lymphs (auto) 0.52 X10^3/ul (0.83-4.51) L 09/05/17 05:20 Total Counted Not Reportable 09/05/17 05:20 Sodium 138 mmol/L (136-145) 09/05/17 05:20 Potassium 3.7 mmol/L (3.5-5.1) 09/05/17 05:20 Chloride 100 mmol/L (98-107) 09/05/17 05:20 Carbon Dioxide 29.0 mmol/L (21.0-32.0) 09/05/17 05:20 Anion Gap 9 (5-15) 09/05/17 05:20 BUN 10 mg/dL (7-18) 09/05/17 05:20 Creatinine 0.88 mg/dL (0.55-1.02) 09/05/17 05:20 Estim Creat Clear Calc 55.04 ml/min 09/05/17 05:20 Est GFR (MDRD) Af Amer 83 mL/min (>60) 09/05/17 05:20 Est GFR (MDRD) Non-Af 68 mL/min (>60) 09/05/17 05:20 BUN/Creatinine Ratio 11.3 RATIO (10-20) 09/05/17 05:20 Glucose 129 mg/dL (70-110) H 09/05/17 05:20 Hemoglobin A1c 7.0 % (4.2-6.3) H 09/04/17 22:35 Uric Acid 5.3 mg/dL (2.6-6.0) 09/05/17 05:20 Calcium 8.6 mg/dL (8.5-10.1) 09/05/17 05:20 Phosphorus 3.4 mg/dL (2.5-4.9) 09/05/17 05:20 Magnesium 1.9 mg/dL (1.8-2.4) 09/05/17 05:20 Total Bilirubin 0.50 mg/dL (0.20-1.00) 09/05/17 05:20 AST 18 U/L (15-37) 09/05/17 05:20 ALT 14 U/L (12-78) 09/05/17 05:20 Alkaline Phosphatase 101 U/L (45-117) 09/05/17 05:20 Troponin I < 0.02 ng/mL (<0.06) 09/04/17 08:30 Total Protein 7.2 g/dL (6.4-8.2) 09/05/17 05:20 Albumin 2.5 g/dL (3.4-5.0) L 09/05/17 05:20 Globulin 4.7 g/dL (2.2-4.2) H 09/05/17 05:20 Albumin/Globulin Ratio 0.5 RATIO (0.9-2.4) L 09/05/17 05:20 TSH 1.01 uIU/mL (0.358-3.74) 09/04/17 08:30 MRSA (PCR) Negative (Negative) 09/05/17 06:00 none Operations: None Procedures: 2-D Echocardiogram, Stress test Summary of Care Provided: Mrs. Blankenship is a 67-year-old female with past medical history of lung cancer, status post left upper lobe lobectomy on 07/16/17, coronary artery disease, PTCA with stent on 04/19/2014, cervical fusion, COPD, obesity, former smoker ( quit 2014) and hypothyroidism who was sent to [facility] emergency room by Dr. Prieto on 09/03 because of dyspnea on exertion with an EKG showing new T-wave inversions in the anterior leads. Vital signs at presentation to the ER were temperature 98, pulse rate 105, blood pressure 128/66, respiratory rate of 19 and she was 99% saturated on a 2 L nasal cannula and 99% saturated on room air. Blood cell count was normal at 10.6 with 76% neutrophils. Hemoglobin was 9.8 and the platelets were 315,000. Sodium was mildly decreased at 134 with a chloride of 96 and creatinine was 1.13 with a BUN of 13. Random blood sugar was 174 at admission. A hemoglobin A1c was obtained and was elevated at 7%. Troponin was less than 0.02. Chest x-ray showed patchy opacities in the right upper lobe and a small left pleural effusion. She was admitted to the hospital for a stress test/cardiac work up to exclude heart disease as the etiology of the NEGRON. Serial cardiac enzymes were negative and the patient had a pharmacologic nuclear stress test done on 09/04/2017 that was negative for ischemia. The gated nuclear ejection fraction was 69%. Echocardiogram showed a normal left ventricular size with normal ejection fraction at 65% and no significant valvular heart disease. Telemetry showed normal sinus rhythm with no significant ectopy. She continued to be tachycardic with heart rates in the range of 101-122 just sitting in the bed. A CTA of the chest was obtained and was negative for pulmonary emboli but did show patchy opacities in the right upper lobe and the superior segment of the left lower lobe. She was having sweats, cough and feeling hot and then cold again. He was very fatigued and looked very pale. On physical examination she had rhonchi in the right upper lobe but these mostly cleared after a few deep coughs. She was started on vancomycin and Levaquin for possible HCAP. A nasal swab for MRSA was negative and the vancomycin was discontinued. The heart rate remained increased and sometimes went into the 140s and 150s. Metoprolol was increased from 25 mg twice daily to 50 mg twice daily. The heart rate on my exam at the time of discharge was less than 100 but HR still increases with exertion. On 09/05 she complained of left ankle and left medial calf pain. X-rays were obtained that showed no fracture or acute abnormalities. An ultrasound of the left lower extremity revealed superficial thrombophlebitis in the greater saphenous vein. On 09/06 she denied any shortness of breath at rest. She does get some shortness of breath with exertion. It has only been 6-8 weeks since her left upper lobe lobectomy and she is deconditioned. I advised her to start an exercise program and walk for a few minutes at a time and gradually increase this time every day. Her lungs on the date of discharge were clear to auscultation with the exception of a few crackles in the left base. There was no wheezing. Her heart was regular and the rate was in the 80's at rest. There was no redness or increased warmth of the left lower extremity distal to the knee. She did have tenderness with palpation over the superficial vein in the left medial calf area. She was instructed to apply warm compresses for 10-15 minutes 3-4 times daily. She was discharged with a prescription for Levaquin 500 mg and instructed to take 1 p.o. daily for 5 days. She was also given a prescription for metoprolol 50 mg, #60, and instructed to take 1 twice daily. It may be beneficial to obtain a follow-up chest x-ray in 3-4 weeks to see if the opacities in the right upper lung have resolved. If there is no change then the opacities are likely radiation fibrosis. She will follow-up with Dr. Bear in the office in 7-10 days. She has an appointment with the thoracic surgeon next week and will follow up with Dr. Prieto in the office in 2 weeks. This note was generated with [employer] dictation software. It may contain incorrect words, spelling, and punctuation that were not noted in checking the note before signing. Discharge Activity: Return to Normal Activity, May not drive while taking narcotic pain medications. Call your doctor if you observe: Fever of 101 or Higher, Fainting spells, Swelling in the ankles, Chest pain, Uncontrolled pain Home Medications: Medications to take at Discharge Aspirin [Aspirin, Baby] 81 mg PO DAILY@0800 02/18/16 Atorvastatin Calcium [Lipitor] 80 mg PO QHS 02/18/16 Escitalopram Oxalate [Lexapro] 10 mg PO QHS 02/18/16 Levothyroxine [Synthroid] 125 mcg PO DAILY 02/18/16 Metoprolol Tartrate [Lopressor (beta swati)] 25 mg PO BID 02/18/16 Albuterol Aerosols [Ventolin Aerosols] 2.5 mg INHALATION Q4HWA.RT 09/03/17 Albuterol Inhaler [Ventolin Hfa] 2 puff INHALATION 4X/DAY PRN 09/03/17 Cholecalciferol (Vitamin D3) [Vitamin D3] 5,000 unit PO DAILY 09/03/17 Docusate Calcium [Stool Softener] 240 mg PO TID 09/03/17 Fentanyl 25 mcg TOPICAL Q3D 09/03/17 Furosemide [Lasix] 20 mg PO DAILY 09/03/17 Gabapentin [Neurontin] 400 mg PO QHS 09/03/17 HydromorphONE [Dilaudid] 4 mg PO Q3H PRN PRN 09/03/17 Iron Polysaccharide Complex [Ferrex 150] 150 mg PO BID 09/03/17 Omeprazole 20 mg PO DAILY 09/03/17 Levofloxacin [Levaquin] 500 mg PO DAILY #5 tablet 09/06/17 Following Prescrptions Were Given to Patient: Levofloxacin [Levaquin] 500 mg PO DAILY #5 tablet Primary Care Physician: Sumit Prieto MD [STAFF PHYSICIAN] - Please follow up with your Primary Care Physician in: 2 weeks Please Follow Up With: [facility] When: next week as previously arranged Please Follow Up With: Jose R Bear MD When: in 7-10 days Patient Instructions: Diabetes: Understanding Carbohydrates, Diabetes: Meal Planning Disposition: Home Minutes spent on discharge:: 40 Patient Condition:: Good Meaningful Use Info Meaningful Use Diagnoses (Choose all that apply): None applicable
--- NOTE | 2017-09-06 10:59 | DS.PCM_ITS ---
Discharge Date and Diagnosis - Problem List Patient Problems: Active and Suspected Problems Diabetes mellitus type 2 in obese (Acute) Dyspnea on exertion (Acute) HAP (hospital-acquired pneumonia) (Acute) Superficial thrombophlebitis of left leg (Acute) Date of Admission: 09/05/17 Date of Discharge: 09/06/17 - Primary Discharge Diagnosis Active and Suspected Problems Dyspnea on exertion (Acute) HAP (hospital-acquired pneumonia) (Acute) Superficial thrombophlebitis of left leg (Acute) Diabetes mellitus type 2 in obese (Acute) - Secondary Discharge Diagnosis Chronic Problems COPD (chronic obstructive pulmonary disease) (Chronic) History of lobectomy of lung (Chronic) S/P cervical spinal fusion (Chronic) CAD (coronary artery disease) (Chronic) Goiter (Chronic) H/O heart artery stent (Chronic) x1 on 04/19/14 Lung cancer (Chronic) Obesity (BMI 30.0-34.9) (Chronic) Tobacco abuse, in remission (Chronic) quit 2yrs ago Hospital Course and Treatment Imaging Results: Clinical Impression(s) from Imaging Studies Chest X-Ray 09/03/17 17:09 IMPRESSION: There are new surgical changes in the left chest. There is volume loss in the left lung. There is a small left pleural effusion. There is no evidence of pneumothorax. There are minimal patchy opacities in the right upper lung, and a developing consolidation cannot be excluded. Electronically Signed: Brooklyn Ndiaye MD at 18:28 EST Tel Direct: [phone], Service support , Chest CTA 09/04/17 15:54 IMPRESSION: No evidence of pulmonary embolism. There are surgical changes on the left side after left upper lobectomy. There are patchy airspace opacities scattered in the right upper lobe and superior segment of the left lower lobe showing air bronchograms. These areas are worrisome for infection. There is no pleural effusion or significant lymphadenopathy. There is minimal atelectasis in the right lower lobe. Electronically Signed: Brooklyn Ndiaye MD at 19:00 EST Tel Direct: [phone], Service support , Tibia/Fibula X-Ray 09/05/17 11:52 IMPRESSION: Mild soft tissue swelling. Electronically Signed: Will Sanchez MD at 14:50 EST Tel [phone], Service support , Laboratory Last Values WBC 8.4 K/mm3 (4.4-11.0) 09/05/17 05:20 RBC 2.96 M/mm3 (4.2-5.4) L 09/05/17 05:20 Hgb 9.2 g/dl (12.0-15.0) L 09/05/17 05:20 Hct 28.8 % (37-47) L 09/05/17 05:20 MCV 97.3 fL (81-99) 09/05/17 05:20 MCH 31.1 pg (27.0-32.0) 09/05/17 05:20 MCHC 31.9 g/gl (32-36) L 09/05/17 05:20 RDW 14.4 % (11.6-14.6) 09/05/17 05:20 RDW Differential 48.9 fl (35.1-43.9) H 09/05/17 05:20 Plt Count 343 K/mm3 (150-450) 09/05/17 05:20 MPV 8.5 fl (6.2-12.0) 09/05/17 05:20 Immature Gran % (Auto) 0.200 % (0.0-0.9) 09/05/17 05:20 Neut % (Auto) 70.5 % (47-70) H 09/05/17 05:20 Lymph % (Auto) 6.2 % (19-41) L 09/05/17 05:20 [place] % (Auto) 19.2 % (0-10) H 09/05/17 05:20 Eos % (Auto) 3.4 % (0-5) 09/05/17 05:20 Baso % (Auto) 0.5 % (0-1) 09/05/17 05:20 Absolute Neuts (auto) 5.9 X10^3/uL (2.0-7.7) 09/05/17 05:20 Absolute Lymphs (auto) 0.52 X10^3/ul (0.83-4.51) L 09/05/17 05:20 Total Counted Not Reportable 09/05/17 05:20 Sodium 138 mmol/L (136-145) 09/05/17 05:20 Potassium 3.7 mmol/L (3.5-5.1) 09/05/17 05:20 Chloride 100 mmol/L (98-107) 09/05/17 05:20 Carbon Dioxide 29.0 mmol/L (21.0-32.0) 09/05/17 05:20 Anion Gap 9 (5-15) 09/05/17 05:20 BUN 10 mg/dL (7-18) 09/05/17 05:20 Creatinine 0.88 mg/dL (0.55-1.02) 09/05/17 05:20 Estim Creat Clear Calc 55.04 ml/min 09/05/17 05:20 Est GFR (MDRD) Af Amer 83 mL/min (>60) 09/05/17 05:20 Est GFR (MDRD) Non-Af 68 mL/min (>60) 09/05/17 05:20 BUN/Creatinine Ratio 11.3 RATIO (10-20) 09/05/17 05:20 Glucose 129 mg/dL (70-110) H 09/05/17 05:20 Hemoglobin A1c 7.0 % (4.2-6.3) H 09/04/17 22:35 Uric Acid 5.3 mg/dL (2.6-6.0) 09/05/17 05:20 Calcium 8.6 mg/dL (8.5-10.1) 09/05/17 05:20 Phosphorus 3.4 mg/dL (2.5-4.9) 09/05/17 05:20 Magnesium 1.9 mg/dL (1.8-2.4) 09/05/17 05:20 Total Bilirubin 0.50 mg/dL (0.20-1.00) 09/05/17 05:20 AST 18 U/L (15-37) 09/05/17 05:20 ALT 14 U/L (12-78) 09/05/17 05:20 Alkaline Phosphatase 101 U/L (45-117) 09/05/17 05:20 Troponin I < 0.02 ng/mL (<0.06) 09/04/17 08:30 Total Protein 7.2 g/dL (6.4-8.2) 09/05/17 05:20 Albumin 2.5 g/dL (3.4-5.0) L 09/05/17 05:20 Globulin 4.7 g/dL (2.2-4.2) H 09/05/17 05:20 Albumin/Globulin Ratio 0.5 RATIO (0.9-2.4) L 09/05/17 05:20 TSH 1.01 uIU/mL (0.358-3.74) 09/04/17 08:30 MRSA (PCR) Negative (Negative) 09/05/17 06:00 none Operations: None Procedures: 2-D Echocardiogram, Stress test Summary of Care Provided: Mrs. Blankenship is a 67-year-old female with past medical history of lung cancer , status post left upper lobe lobectomy on 07/16/17, coronary artery disease, PTCA with stent on 04/19/2014, cervical fusion, COPD, obesity, former smoker ( quit 2014) and hypothyroidism who was sent to [facility] emergency room by Dr. Prieto on 09/03 because of dyspnea on exertion with an EKG showing new T-wave inversions in the anterior leads. Vital signs at presentation to the ER were temperature 98, pulse rate 105, blood pressure 128/ 66, respiratory rate of 19 and she was 99% saturated on a 2 L nasal cannula and 99% saturated on room air. Blood cell count was normal at 10.6 with 76% neutrophils. Hemoglobin was 9.8 and the platelets were 315,000. Sodium was mildly decreased at 134 with a chloride of 96 and creatinine was 1.13 with a BUN of 13. Random blood sugar was 174 at admission. A hemoglobin A1c was obtained and was elevated at 7%. Troponin was less than 0.02. Chest x-ray showed patchy opacities in the right upper lobe and a small left pleural effusion. She was admitted to the hospital for a stress test/cardiac work up to exclude heart disease as the etiology of the NEGRON. Serial cardiac enzymes were negative and the patient had a pharmacologic nuclear stress test done on that was negative for ischemia. The gated nuclear ejection fraction was 69%. Echocardiogram showed a normal left ventricular size with normal ejection fraction at 65% and no significant valvular heart disease. Telemetry showed normal sinus rhythm with no significant ectopy. She continued to be tachycardic with heart rates in the range of 101-122 just sitting in the bed. A CTA of the chest was obtained and was negative for pulmonary emboli but did show patchy opacities in the right upper lobe and the superior segment of the left lower lobe. She was having sweats, cough and feeling hot and then cold again. He was very fatigued and looked very pale. On physical examination she had rhonchi in the right upper lobe but these mostly cleared after a few deep coughs. She was started on vancomycin and Levaquin for possible HCAP. A nasal swab for MRSA was negative and the vancomycin was discontinued. The heart rate remained increased and sometimes went into the 140s and 150s. Metoprolol was increased from 25 mg twice daily to 50 mg twice daily. The heart rate on my exam at the time of discharge was less than 100 but HR still increases with exertion. On 09/05 she complained of left ankle and left medial calf pain. X-rays were obtained that showed no fracture or acute abnormalities. An ultrasound of the left lower extremity revealed superficial thrombophlebitis in the greater saphenous vein. On 09/06 she denied any shortness of breath at rest. She does get some shortness of breath with exertion. It has only been 6-8 weeks since her left upper lobe lobectomy and she is deconditioned. I advised her to start an exercise program and walk for a few minutes at a time and gradually increase this time every day. Her lungs on the date of discharge were clear to auscultation with the exception of a few crackles in the left base. There was no wheezing. Her heart was regular and the rate was in the 80's at rest. There was no redness or increased warmth of the left lower extremity distal to the knee. She did have tenderness with palpation over the superficial vein in the left medial calf area. She was instructed to apply warm compresses for 10-15 minutes 3-4 times daily. She was discharged with a prescription for Levaquin 500 mg and instructed to take 1 p.o. daily for 5 days. She was also given a prescription for metoprolol 50 mg, #60, and instructed to take 1 twice daily. It may be beneficial to obtain a follow-up chest x-ray in 3-4 weeks to see if the opacities in the right upper lung have resolved. If there is no change then the opacities are likely radiation fibrosis. She will follow-up with Dr. Bear in the office in 7-10 days. She has an appointment with the thoracic surgeon next week and will follow up with Dr. Prieto in the office in 2 weeks. This note was generated with [employer] dictation software. It may contain incorrect words, spelling, and punctuation that were not noted in checking the note before signing. Discharge Activity: Return to Normal Activity, May not drive while taking narcotic pain medications. Call your doctor if you observe: Fever of 101 or Higher, Fainting spells, Swelling in the ankles, Chest pain, Uncontrolled pain Home Medications: Medications to take at Discharge Aspirin [Aspirin, Baby] 81 mg PO DAILY@0800 02/18/16 Atorvastatin Calcium [Lipitor] 80 mg PO QHS 02/18/16 Escitalopram Oxalate [Lexapro] 10 mg PO QHS 02/18/16 Levothyroxine [Synthroid] 125 mcg PO DAILY 02/18/16 Metoprolol Tartrate [Lopressor (beta swati)] 25 mg PO BID 02/18/16 Albuterol Aerosols [Ventolin Aerosols] 2.5 mg INHALATION Q4HWA.RT 09/03/17 Albuterol Inhaler [Ventolin Hfa] 2 puff INHALATION 4X/DAY PRN 09/03/17 Cholecalciferol (Vitamin D3) [Vitamin D3] 5,000 unit PO DAILY 09/03/17 Docusate Calcium [Stool Softener] 240 mg PO TID 09/03/17 Fentanyl 25 mcg TOPICAL Q3D 09/03/17 Furosemide [Lasix] 20 mg PO DAILY 09/03/17 Gabapentin [Neurontin] 400 mg PO QHS 09/03/17 HydromorphONE [Dilaudid] 4 mg PO Q3H PRN PRN 09/03/17 Iron Polysaccharide Complex [Ferrex 150] 150 mg PO BID 09/03/17 Omeprazole 20 mg PO DAILY 09/03/17 Levofloxacin [Levaquin] 500 mg PO DAILY #5 tablet 09/06/17 Following Prescrptions Were Given to Patient: Levofloxacin [Levaquin] 500 mg PO DAILY #5 tablet Primary Care Physician: Sumit Prieto MD [STAFF PHYSICIAN] - Please follow up with your Primary Care Physician in: 2 weeks Please Follow Up With: [facility] surgeon When: next week as previously arranged Please Follow Up With: Jose R Bear MD When: in 7-10 days Patient Instructions: Diabetes: Understanding Carbohydrates, Diabetes: Meal Planning Disposition: Home Minutes spent on discharge:: 40 Patient Condition:: Good Meaningful Use Info Meaningful Use Diagnoses (Choose all that apply): None applicable
[2017-09-06] MEDS: levoFLOXacin 750 MG Tablet PO (11:31)
== END 2017-09-06 11:36 | disposition home or self-care (01) | DRG 194 ==
PROVIDERS: Admitting Provider Family Medicine; Emergency Provider Emergency Medicine; Family Provider Family Medicine; PCP Family Medicine; Visit Provider Internal Medicine
DX: J18.9 Pneumonia, unspecified organism (principal); J44.0 Chronic obstructive pulmonary disease with (acute) lower respiratory infection; C34.92 Malignant neoplasm of unspecified part of left bronchus or lung; Y95 Nosocomial condition; I80.02 Phlebitis and thrombophlebitis of superficial vessels of left lower extremity; E11.65 Type 2 diabetes mellitus with hyperglycemia; I25.10 Atherosclerotic heart disease of native coronary artery without angina pectoris; I10 Essential (primary) hypertension; E78.5 Hyperlipidemia, unspecified; E03.9 Hypothyroidism, unspecified; F32.9 Major depressive disorder, single episode, unspecified; F41.9 Anxiety disorder, unspecified; E66.9 Obesity, unspecified; Z68.32 Body mass index [BMI] 32.0-32.9, adult; Z79.82 Long term (current) use of aspirin; Z79.899 Other long term (current) drug therapy; Z85.118 Personal history of other malignant neoplasm of bronchus and lung; Z87.891 Personal history of nicotine dependence; Z95.5 Presence of coronary angioplasty implant and graft; Z90.2 Acquired absence of lung [part of]; Z90.710 Acquired absence of both cervix and uterus
CPT/HCPCS: 36415; 71010; 71275; 73590; 78452; 80048; 80053; 80202; 83036; 83735; 84100; 84443; 84484; 84550; 85025; 85027; 87040; 87070; 87205; 87449; 87633; 87641; 87804; 93005; 93017; 93306; 93971; 94640; 99285; A9500; J7030; Q9957; Q9967; A4216; C8929; J1940; J2405; J2785

== ENCOUNTER → 2017-11-26 12:47 | Outpatient (CLI) | payer MEDICARE, OTHER, SELFPAY ==
[2017-11-26 13:59] LABS: Erythrocyte Sedimentation Rate 49 mm/hr (0-30)
[2017-11-26 14:13] LABS: Anion Gap 6 (5-15); BUN 23 mg/dL (7-18); BUN/Creat Ratio 19.5 RATIO (10-20); CRP 4.57 mg/L (0.0-3.0); Calcium,Total 9.2 mg/dL (8.5-10.1); Chloride 101 mmol/L (98-107); Creatinine, Serum 1.18 mg/dL (0.55-1.02); EST Glomerular Filtration Rate 49 mL/min (>60); Est Glom Filt Rate - Afr Amer 59 mL/min (>60); Glucose 110 mg/dL (74-106); Potassium 4.4 mmol/L (3.5-5.1); Sodium Level 139 mmol/L (136-145)
== END ==
PROVIDERS: Family Provider Family Medicine; PCP Family Medicine; Visit Provider Family Medicine
DX: C34.12 Malignant neoplasm of upper lobe, left bronchus or lung (principal)
CPT/HCPCS: 36415; 80048; 85652; 86140

== ENCOUNTER → 2018-02-14 11:24 | Outpatient (CLI) | payer MEDICARE, OTHER, SELFPAY ==
[2018-02-14 14:19] LABS: Hematocrit 37.6 % (37-47); Hemoglobin 11.9 g/dl (12.0-15.0); Mean Corp Hgb Conc 31.6 g/gl (32-36); Mean Corpuscular Volume 91.7 fL (81-99); Platelet Count 256 K/mm3 (150-450); RBC Distribution Width CV 13.7 % (11.6-14.6); RBC Distribution Width SD 45.4 fl (35.1-43.9); White Blood Count 6.6 K/mm3 (4.4-11.0)
[2018-02-14 14:20] LABS: Scan Indicated on CBC? Y/N NO
[2018-02-14 14:43] LABS: Anion Gap 5 (5-15); BUN 23 mg/dL (7-18); BUN/Creat Ratio 19.3 RATIO (10-20); Calcium,Total 9.2 mg/dL (8.5-10.1); Chloride 104 mmol/L (98-107); Creatinine, Serum 1.19 mg/dL (0.55-1.02); EST Glomerular Filtration Rate 48 mL/min (>60); Est Glom Filt Rate - Afr Amer 58 mL/min (>60); Glucose 110 mg/dL (74-106); Potassium 4.4 mmol/L (3.5-5.1); Sodium Level 141 mmol/L (136-145); Thyroid Stim Hormone (TSH) 0.07 uIU/mL (0.358-3.74)
== END ==
PROVIDERS: Family Provider Family Medicine; PCP Family Medicine; Visit Provider Family Medicine
DX: N18.9 Chronic kidney disease, unspecified (principal); E03.9 Hypothyroidism, unspecified
CPT/HCPCS: 36415; 80048; 84443; 85027

== ENCOUNTER 2018-04-10 10:15 | Outpatient (RCR) | payer MEDICARE, OTHER, SELFPAY ==
--- NOTE | 2018-03-25 12:58 | PCM.PR.HP ---
History of Present Illness Arrival date:: 03/25/18 Arrival time:: 12:59 Date of Referral:: 02/25/18 Date of Evaluation: 03/25/18 Referring Physician: SANDIE HUERTAS Primary Diagnosis: COPD History of Present Illness: Gold classification STage III SEvere COPD. mMRC Breathless Scale: When is the patient short of breath? Y/N Grade: Description of Breathlessness: 0 I only get breathless with strenuous exercise. 1 I get short of breath when hurrying on level ground or walking up a slight hill. 2 On level ground, I walk slower than people of the same age because of breathless, or have to stop for breath when walking at my own pace. 3 I stop for breath after walking 100 yards or after a few minutes on level ground. 4 I am too breathless to leave the house or I am breathless when dressing. Home Medications: Home Medications Aspirin [Aspirin, Baby] 81 mg PO DAILY@0800 02/18/16 Atorvastatin Calcium [Lipitor] 80 mg PO QHS 02/18/16 Escitalopram Oxalate [Lexapro] 10 mg PO QHS 02/18/16 Levothyroxine [Synthroid] 125 mcg PO DAILY 02/18/16 Albuterol Aerosols [Ventolin Aerosols] 2.5 mg INHALATION Q4HWA.RT 09/03/17 Albuterol Inhaler [Ventolin Hfa] 2 puff INHALATION 4X/DAY PRN 09/03/17 Cholecalciferol (Vitamin D3) [Vitamin D3] 5,000 unit PO DAILY 09/03/17 Docusate Calcium [Stool Softener] 240 mg PO TID 09/03/17 Fentanyl 25 mcg TOPICAL Q3D 09/03/17 Furosemide [Lasix] 20 mg PO DAILY 09/03/17 Gabapentin [Neurontin] 400 mg PO QHS 09/03/17 HYDROmorphone tablet [Dilaudid] 4 mg PO Q3H PRN PRN 09/03/17 Iron Polysaccharide Complex [Ferrex 150] 150 mg PO BID 09/03/17 Omeprazole 20 mg PO DAILY 09/03/17 Metoprolol Tartrate [Lopressor (beta swati)] 50 mg PO BID #60 tablet 09/06/17 levoFLOXacin tablet [Levaquin] 500 mg PO DAILY #5 tablet 09/06/17 Allergies/Adverse Reactions: Allergies cephalexin Allergy (Verified 09/03/17 17:02) Rash - Secretions Normal Color:: light pale green Thin:: Yes Cough:: No A.T.C.: Yes Hx of Sleep Apnea: No Do you snore loudly (louder than talking or can be heard through closed doors)?: Yes Do you often feel tired/ fatigued/ sleepy during daytime?: No Has anyone observed you stop breathing during sleep?: No History of Hypertension (for STOP score): Yes STOP Results: Positive Medical Utilization Do you use a peak flow meter at home?: No Do you use a spacer device with your inhalers?: Yes Number of hospital visits in the last year?: 2 - surgery July/August Do you see your physician on a regular schedule?: Yes How often?: recently every month, now back to 2 months Advanced Directives - Advanced Directives Power of Class B Truck Driver: No Living Will: No Advance Directives Information Provided: Yes Advance Directives on File: No DNR Order?:: No - MOLST See MOLST form: No Past Medical History Medical History: Past Medical History (Last Updated 03/25/18 @ 13:09 by Santos Medrano CRT, [place], BS) Anxiety F41.9 Coronary artery disease I25.10 Depression F32.9 History of coronary artery stent placement Z95.5 Hypercholesterolemia E78.00 Hypothyroidism E03.9 Lung cancer C34.90 Lung nodules R91.8 neck surgery disection/fusion Hypertension I10 Surgical History: Past Surgical History (Last Updated 03/25/18 @ 13:08 by Santos Medrano CRT, TYRE FINISHER AND EXAMINER, BS) H/O: hysterectomy Z90.710 History of bladder suspension procedure Z98.890, Z87.448 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 Status post lobectomy of lung Z90.2 Family History: Family History (Last Updated 03/25/18 @ 13:10 by Santos Medrano CRT, TYRE FINISHER AND EXAMINER, BS) Other father cancer; mother coronary occlusion - Current/ Previous Services Pulmonary Rehab:: No Social History - Smoking History Smoking Status: Former smoker Years Smokin Packs Smoked per Day: 1 Hx Smoking Cessation Date: 2014 Hx Tobacco Use: Yes Hx Smoking Exposure: No - Alcohol Use Alcohol Usage: No - Substance Abuse Hx Substance Use: No - Occupation Occupation (List type of work in comments):: Retired - Hobbies, Recreation, Social Activities Hobbies: Walking, Other - crafts, bowling, family and grandchildren Recreational Activities: I am able to engage in a few activities Functioning ADL/IADL - Current Ability Current Ability: Independent Self-Care (e.g.,grooming, dressing, & bathing), Independent Ambulation, Independent Transfer, Independent Household tasks (e.g., light meal prep, laundry, shopping) - Pt Functioning Prior to Problem Prior Functioning: Self-Care (e.g.,grooming, dressing, & bathing): Independent, Ambulation: Independent, Transfer: Independent, Household tasks (e.g., light meal prep, laundry, shopping): Independent Social Environment - Status Marital Status: - Current Living Arrangements Living Environment:: Spouse - Children How many children do you have?: 2 - 5 grandchildren Do any of your children live nearby?: Yes - Safety Do you feel safe in your surroundings?: Yes - Assistance Do you need any assistance at home?: none Review of Systems Review of Systems: Right click = Denies (Slash). Left click = Reports ([place]) Respiratory: Reports: SOB upon Exertion, Appetite, Normal, Fatigue, Sleep, Normal. Denies: Cough, SOB at Rest, Sputum production, Wheezing, Dizziness/Lightheadedness Is Patient Pain Free?: No Pain Location: none Pain Level: 0/10 Risk Factor Assessment - Chief Complaint Chief Complaint: Patient presents to pulmonary rehabilitation program today under the care of her primary physician Dr. Huertas and her community development director Dr. Jay. - Vital Signs Temperature: 98.7 F Pulse Rate: 64 Respiratory Rate: 16 Pulse Ox: 98 - 2 liters Blood Pressure: 110/68 Nailbeds:: pink - Diabetes Nutrition Referral for Diabetes: No - Obesity Height: 5 ft 5 in Weight:: 187 lb Weight in Pounds: 187.0 lbs Weight Source: Standing Scale Body Mass Index (BMI): 31.1 Nutritional Referral for Obesity: No - Physical Activity Physical Inactivity: Recreational activity - weeding flower gardens, planting, gardening - Risk Stratification Risk Guidelines: Lowest Risk: Risk Factor for Smoking, Risk Factor for Dyslipidemia, Risk Factor for Diabetes, Risk Factor for Hypertension, Risk Factor for Depression, Highest Risk: Risk Factor for Obesity, Risk Factor for Sedentary Lifestyle - For Smoking Smoking Risk Guidelines: Smoking Low Risk: None or quit greater than 6 months ago. Smoking Moderate Risk: Smoker or quit 6 months or less ago. Smoking High Risk: Smoker - For Dyslipidemia Dyslipidemia Risk Guidelines: Low Risk: Moderate Risk: High Risk: 15-25% fat 25.1-29% fat >/= 30% fat. <7% sat fat 7-9% sat fat >9% sat fat. <150 mg chol 150-299 mg chol >/= 300 mg chol. LDL <100 LDL 100-129 LDL >/= 130. Chol/HDL ratio <5.0 Chol/HDL ratio 5.0-6.0 Chol/HDL ratio >6.0. Triglycerides <100 Triglycerides 100-149 Triglycerides >/= 150 - For Diabetes Mellitus Diabetes Risk Guidelines: Diabetes Low Risk: HgA1c <6.5% and/or FBG <120. Diabetes Moderate Risk: HgA1c 6.6-7.9% and/or FBG 120-180. Diabetes High Risk: HgA1c >/= 8% and/or FBG >180 - For Obesity/Overweight Obesity/Overweight Risk Guidelines: Obesity Low Risk: BMI <25.0. Obesity Moderate Risk: BMI 25-29.9. Obesity High Risk: BMI >/= 30.0 - For Hypertension Hypertension Risk Guidelines: Hypertension Low Risk: Systolic <120 and Diastolic <80. Hypertension Moderate Risk: Systolic 120-139 and Diastolic 80-89. Hypertension High Risk: Systolic >/= 140 and Diastolic >/= 90 - For Sedentary Lifestyle Sedentary Lifestyle Risk Guidelines: Sedentary Lifestyle Low Risk: >/= 1,500 kcal/week. Sedentary Lifestyle Moderate Risk: 700-1,499 kcal/week. Sedentary Lifestyle High Risk: < 700 kcal/week - For Depression Depression Risk Guidelines: Depression Low Risk: Not clinically depressed. Depression Moderate Risk: Mildly depressed. Depression High Risk: Clinically depressed Motivation - Motivation to Participate On a scale of 1 to 10, how prepared are you to commit to attending program?: 10 What do you see as barriers to successfully being able to complete the program?: none What do you see as the benefits of succesfully completing the program? In other words, what do you hope to get out of participating in the program?: hopefully be alot stronger; more active, more independent Are there issues you are dealing with that will interfere with completing the program?: none Do you have a spouse or signficant other, family or friends who will help support you to complete the program?: yes; daughter is a nurse and has helped tremendously. Diagnostic Data Review - 6 Minute Walk Test 6 Minute Walk Test: see EHR - Pulmonary Function Test FEV1:: 1.87 FVC:: 2.61 FEV1/FVC%:: 72 Gold Classification: GOLD class III(severe COPD)with FEV1/FVC<70, 30%</=FEV1< 50% predicted
--- NOTE | 2018-03-25 13:08 | PR.HP_ITS ---
History of Present Illness Arrival date:: 03/25/18 Arrival time:: 12:59 Date of Referral:: 02/25/18 Date of Evaluation: 03/25/18 Referring Physician: SANDIE HUERTAS Primary Diagnosis: COPD History of Present Illness: Gold classification STage III SEvere COPD. mMRC Breathless Scale: When is the patient short of breath? Y/N Grade: Description of Breathlessness: 0 I only get breathless with strenuous exercise. 1 I get short of breath when hurrying on level ground or walking up a slight hill. 2 On level ground, I walk slower than people of the same age because of breathless, or have to stop for breath when walking at my own pace. 3 I stop for breath after walking 100 yards or after a few minutes on level ground. 4 I am too breathless to leave the house or I am breathless when dressing. Home Medications: Home Medications Aspirin [Aspirin, Baby] 81 mg PO DAILY@0800 02/18/16 Atorvastatin Calcium [Lipitor] 80 mg PO QHS 02/18/16 Escitalopram Oxalate [Lexapro] 10 mg PO QHS 02/18/16 Levothyroxine [Synthroid] 125 mcg PO DAILY 02/18/16 Albuterol Aerosols [Ventolin Aerosols] 2.5 mg INHALATION Q4HWA.RT 09/03/17 Albuterol Inhaler [Ventolin Hfa] 2 puff INHALATION 4X/DAY PRN 09/03/17 Cholecalciferol (Vitamin D3) [Vitamin D3] 5,000 unit PO DAILY 09/03/17 Docusate Calcium [Stool Softener] 240 mg PO TID 09/03/17 Fentanyl 25 mcg TOPICAL Q3D 09/03/17 Furosemide [Lasix] 20 mg PO DAILY 09/03/17 Gabapentin [Neurontin] 400 mg PO QHS 09/03/17 HYDROmorphone tablet [Dilaudid] 4 mg PO Q3H PRN PRN 09/03/17 Iron Polysaccharide Complex [Ferrex 150] 150 mg PO BID 09/03/17 Omeprazole 20 mg PO DAILY 09/03/17 Metoprolol Tartrate [Lopressor (beta swati)] 50 mg PO BID #60 tablet 09/06/17 levoFLOXacin tablet [Levaquin] 500 mg PO DAILY #5 tablet 09/06/17 Allergies/Adverse Reactions: Allergies cephalexin Allergy (Verified 09/03/17 17:02) Rash - Secretions Normal Color:: light pale green Thin:: Yes Cough:: No A.T.C.: Yes Hx of Sleep Apnea: No Do you snore loudly (louder than talking or can be heard through closed doors)? : Yes Do you often feel tired/ fatigued/ sleepy during daytime?: No Has anyone observed you stop breathing during sleep?: No History of Hypertension (for STOP score): Yes STOP Results: Positive Medical Utilization Do you use a peak flow meter at home?: No Do you use a spacer device with your inhalers?: Yes Number of hospital visits in the last year?: 2 - surgery July/August Do you see your physician on a regular schedule?: Yes How often?: recently every month, now back to 2 months Advanced Directives - Advanced Directives Power of Security Operations Analyst: No Living Will: No Advance Directives Information Provided: Yes Advance Directives on File: No DNR Order?:: No - MOLST See MOLST form: No Past Medical History Medical History: Past Medical History (Last Updated 03/25/18 @ 13:09 by Santos Medrano CRT, [place], BS) Anxiety F41.9 Coronary artery disease I25.10 Depression F32.9 History of coronary artery stent placement Z95.5 Hypercholesterolemia E78.00 Hypothyroidism E03.9 Lung cancer C34.90 Lung nodules R91.8 neck surgery disection/fusion Hypertension I10 Surgical History: Past Surgical History (Last Updated 03/25/18 @ 13:08 by Santos Medrano CRT, APARTMENT HOTEL MANAGER, BS) H/O: hysterectomy Z90.710 History of bladder suspension procedure Z98.890, Z87.448 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 Status post lobectomy of lung Z90.2 Family History: Family History (Last Updated 03/25/18 @ 13:10 by Santos Medrano CRT, APARTMENT HOTEL MANAGER, BS) Other father cancer; mother coronary occlusion - Current/ Previous Services Pulmonary Rehab:: No Social History - Smoking History Smoking Status: Former smoker Years Smokin Packs Smoked per Day: 1 Hx Smoking Cessation Date: 2014 Hx Tobacco Use: Yes Hx Smoking Exposure: No - Alcohol Use Alcohol Usage: No - Substance Abuse Hx Substance Use: No - Occupation Occupation (List type of work in comments):: Retired - Hobbies, Recreation, Social Activities Hobbies: Walking, Other - crafts, bowling, family and grandchildren Recreational Activities: I am able to engage in a few activities Functioning ADL/IADL - Current Ability Current Ability: Independent Self-Care (e.g.,grooming, dressing, & bathing), Independent Ambulation, Independent Transfer, Independent Household tasks (e.g. , light meal prep, laundry, shopping) - Pt Functioning Prior to Problem Prior Functioning: Self-Care (e.g.,grooming, dressing, & bathing): Independent, Ambulation: Independent, Transfer: Independent, Household tasks (e.g., light meal prep, laundry, shopping): Independent Social Environment - Status Marital Status: - Current Living Arrangements Living Environment:: Spouse - Children How many children do you have?: 2 - 5 grandchildren Do any of your children live nearby?: Yes - Safety Do you feel safe in your surroundings?: Yes - Assistance Do you need any assistance at home?: none Review of Systems Review of Systems: Right click = Denies ([place]). Left click = Reports ([place]) Respiratory: Reports: SOB upon Exertion, Appetite, Normal, Fatigue, Sleep, Normal. Denies: Cough, SOB at Rest, Sputum production, Wheezing, Dizziness/ Lightheadedness Is Patient Pain Free?: No Pain Location: none Pain Level: 0/10 Risk Factor Assessment - Chief Complaint Chief Complaint: Patient presents to pulmonary rehabilitation program today under the care of her primary physician Dr. Huertas and her air grinder Dr. Jay. - Vital Signs Temperature: 98.7 F Pulse Rate: 64 Respiratory Rate: 16 Pulse Ox: 98 - 2 liters Blood Pressure: 110/68 Nailbeds:: pink - Diabetes Nutrition Referral for Diabetes: No - Obesity Height: 5 ft 5 in Weight:: 187 lb Weight in Pounds: 187.0 lbs Weight Source: Standing Scale Body Mass Index (BMI): 31.1 Nutritional Referral for Obesity: No - Physical Activity Physical Inactivity: Recreational activity - weeding flower gardens, planting, gardening - Risk Stratification Risk Guidelines: Lowest Risk: Risk Factor for Smoking, Risk Factor for Dyslipidemia, Risk Factor for Diabetes, Risk Factor for Hypertension, Risk Factor for Depression, Highest Risk: Risk Factor for Obesity, Risk Factor for Sedentary Lifestyle - For Smoking Smoking Risk Guidelines: Smoking Low Risk: None or quit greater than 6 months ago. Smoking Moderate Risk: Smoker or quit 6 months or less ago. Smoking High Risk: Smoker - For Dyslipidemia Dyslipidemia Risk Guidelines: Low Risk: Moderate Risk: High Risk: 15-25% fat 25.1-29% fat >/= 30% fat. <7% sat fat 7-9% sat fat >9% sat fat. <150 mg chol 150-299 mg chol >/= 300 mg chol. LDL <100 LDL 100-129 LDL >/= 130. Chol/HDL ratio <5.0 Chol/HDL ratio 5.0-6.0 Chol/HDL ratio >6.0. Triglycerides <100 Triglycerides 100-149 Triglycerides >/= 150 - For Diabetes Mellitus Diabetes Risk Guidelines: Diabetes Low Risk: HgA1c <6.5% and/or FBG <120. Diabetes Moderate Risk: HgA1c 6.6-7.9% and/or FBG 120-180. Diabetes High Risk: HgA1c >/= 8% and/or FBG >180 - For Obesity/Overweight Obesity/Overweight Risk Guidelines: Obesity Low Risk: BMI <25.0. Obesity Moderate Risk: BMI 25-29.9. Obesity High Risk: BMI >/= 30.0 - For Hypertension Hypertension Risk Guidelines: Hypertension Low Risk: Systolic <120 and Diastolic <80. Hypertension Moderate Risk: Systolic 120-139 and Diastolic 80-89. Hypertension High Risk: Systolic >/= 140 and Diastolic >/= 90 - For Sedentary Lifestyle Sedentary Lifestyle Risk Guidelines: Sedentary Lifestyle Low Risk: >/= 1 ,500 kcal/week. Sedentary Lifestyle Moderate Risk: 700-1,499 kcal/week. Sedentary Lifestyle High Risk: < 700 kcal/week - For Depression Depression Risk Guidelines: Depression Low Risk: Not clinically depressed. Depression Moderate Risk: Mildly depressed. Depression High Risk: Clinically depressed Motivation - Motivation to Participate On a scale of 1 to 10, how prepared are you to commit to attending program?: 10 What do you see as barriers to successfully being able to complete the program? : none What do you see as the benefits of succesfully completing the program? In other words, what do you hope to get out of participating in the program?: hopefully be alot stronger; more active, more independent Are there issues you are dealing with that will interfere with completing the program?: none Do you have a spouse or signficant other, family or friends who will help support you to complete the program?: yes; daughter is a nurse and has helped tremendously. Diagnostic Data Review - 6 Minute Walk Test 6 Minute Walk Test: see EHR - Pulmonary Function Test FEV1:: 1.87 FVC:: 2.61 FEV1/FVC%:: 72 Gold Classification: GOLD class III(severe COPD)with FEV1/FVC<70, 30%</=FEV1< 50 % predicted
--- NOTE | 2018-03-25 13:17 | PR.ITP_ITS ---
General Information - General Information Admitting Diagnosis: COPD, stage III Severe Gold Classification:: GOLD 3: Severe Oxygen: 2 - PFT FEV1:: 1.87 FVC:: 2.61 FEV1/FVC%:: 72 - Education/Goals Barriers to Learning: None, Vision Impairment - wears reading glasses Individual Counseling: Initial Assessment: Dyspnea control techniques at rest, activity, and ADLs, Exacerbation prevention & management, O2, Rx, system, safety , Nutrition & weight management, Home exercise plan & guidelines, Advanced directives Patient Goals: Breathe better: Initial Assessment, Increase endurance/stamina: Initial Assessment, Return to recreation/hobby: Initial Assessment, Improve weight: Initial Assessment Exercise - Initial Assessment - Visit Date of Eval: 03/25/18 - established ITP; start [place] - Problem/Goals Problems: Deconditioning, No regular exercise, Knowledge deficit exercise guidelines, Knowledge deficit exercise safety - Exercise Prescription Mode:: Treadmill, Airdyne, NuStep, Arm Ergometer Frequency (x/week): 3 Duration:: 30 MET LEVEL:: 2 HR (bpm):: 115 - 106-115 Exercise Progression: as tolerated - Plan Plan and Plan to Review:: Benefits of exercise, Core components of exercise, How to measure dyspnea level, How to monitor dyspnea level, Exercise intensity, Exercise safety guideline, Home exercise guidelines, Benito: 3-/-13 Disease Management - Initial - Problems/Goals-Hypoxemia Hypoxemia Goals:: Hypoxemia managed, Using O2 as Rx's safely - Problems/Goals-Medications Medication Goals: Adherence to prescribed medications, Correct technique/timing & care of MDI, DPI, nebulizer, and spacer. - Problems/Goals-Bronchial Hygiene Bronchial Hygiene Problems:: Ineffective secretion clearance, Respiratory infection Prevention/Management Bronchial Hygiene Goals:: Pt demonstrates effective cough, effective secretion clearance., Pt describes signs and symptoms of infection. - Initial Assessment SpO2:: 98 Port O2:: 2 Does pt report taking home meds as prescribed?: Yes Medications: Yes MDI, Yes NEB, No Spacer - doesnt use regularly Patient Reports:: No cough - Plans Hypoxemia Plan:: Monitor SpO2 rest & with exercise, Train appropriate O2 use at rest, Train appropriate O2 use with exercise, Train O2 safety & systems Reviewed prescribed medications:: Purpose, Schedule, Side effects, Importance of compliance Instruct correct technique/timing & care:: MDI, Nebulizer Bronchial Hygiene Plan: Controlled cough, Vibratory PEP device, Hydration, Hand hygiene, Signs/symptoms to report:, Influenza/Pneumovax vaccines Psychosocial - Initial Assess - Problems/Goals Problems: Depression, Anxiety, Impaired Q.O.L. Psychosocial Goals: Improved psychosocial coping skills., Improved Q.O.L. - Psychosocial Test Depression:: Anxiety, Impaired QOL - Plan Instructions given regarding:: Benefits of exercise, Relaxation techniques, Training in coping strategies Stress management: On meds currently Tobacco - Initial Assessment - Program Goals Tobacco Program Goals: Complete smoking cessation. Attend education classes. Improve Knowledge Test score - Stage of Change Stages of Change:: Action - Learning Barriers Learning Barriers: Vision - wears reading glasses, Ready to Learn - Tobacco Use Tobacco Use: Non-smoker How long ago did you quit using tobacco products?: Greater than or equal to 6 months ago Years Smokin Do you use smokeless tobacco?: No - Intervention Smoking Cessation Referral:: No Individual Education/Counseling:: No Education Schedule Given:: Yes - Education Gave Education Materials For:: Tobacco Triggers, Pulmonary Disease, Risk Factors , Breathing Techniques, Medical Compliance, Pulmonary A&P, Exacerbation Signs & Symptoms, Stress & Relaxation Nutrition/Wt Mgmt - Initial - Problems/Goals Problems: Overweight Goals: Wt Loss 1-2 lbs per week, Waist circumference - Weight Management Knowledge Deficit Management of:: Overweight Admit Height:: 5 ft 5 in Admit Weight:: 187 lb Admit BMI:: 31.1 - Diabetes Diabetes:: No Insulin: No Do you monitor your blood sugar at home?: No - Intervention Referral to dietitian:: No Referral to Diabetic Clinic:: No Will attend diet classes:: Yes - Plan Nutrition Plan: Yes Review BMI or WC & identify target wt & strategies for wt control, Yes Nutrition education class:, Yes Weight control education class: Patient Health Questionnaire Initial Assessment 1. Little interest or pleasure in doing things: Several days 2. Feeling down, depressed, or hopeless: Not at all 3. Trouble falling or staying asleep, or sleeping too much: Not at all 4. Feeling tired or having little energy: Several days 5. Poor appetite or overeating: Several days 6. Feeling bad about yourself -- or that you are a failure or have let yourself or your family down: Not at all 7. Trouble concentrating on things, such as reading the newspaper or watching television: Not at all 8. Moving or speaking so slowly that other people could have noticed. Or the opposite - being so fidgety or restless that you have been moving around a lot more than usual: Not at all 9. Thoughts that you would be better off , or of hurting yourself in some way: Not at all How difficult have these problems made it for you to do your work, take care of things at home, or get along with other people?: Not difficult at all Total Score: 3 COPD Knowledge Test Initial COPD is a lung disease that:: Makes it hard to breathe & gets worse over time In the [place] the term COPD describes 2 main lung conditions:: Emphysema & pulmonary hypertension The most common lung irritant that causes COPD is:: Cigarette smoke Common signs and symptoms of COPD include:: An ongoing cough/cough that produces a large amount of mucus, & SOB If you have COPD, what steps can you take?: All of the above Swelling of the ankles is common in COPD:: True Fatigue [tiredness] is common in COPD:: True Wheezing is common in COPD:: True Crushing chest pain is common in COPD:: True Rapid weight loss is common in COPD:: False Breathlessness is a normal response to exercise: True Exercise should be avoided if it makes you short of breath: False All bronchodilators act within 10 minutes: False A spacer device increases the medication to the lungs: True Annual flu vaccine is recommended for pts w/lung disease: True COPD Knowledge Test Total Score:: 12 COPD Assessment Test [CAT] - Questions Never cough = 0, Cough all the time = 5: 2 No phlegm = 0, Chest full of phlegm = 5: 2 No chest tightness = 0, Chest very tight = 5: 2 No breathless w/exertion = 0, Very breathless w/exertion = 5: 4 No limitations w/activity = 0, Very limited w/activity = 5: 3 Confident leaving home = 0, Not at all confident = 5: 0 Sleep soundly = 0, Don't sleep soundly = 5: 0 Lots of energy = 0, No energy at all = 5: 3 Total CAT score:: 16 Self-Efficacy Initial Assessment We would like to know how confident you are in doing certain activities. Please select your confidence level for:: Select your confidence level for the following using the scale 1-10 where 1 is not at all confident and 10 is totally confident. Your score is the average of all 6 responses. Fatigue: How confident are you that you can keep the fatigue caused by your disease from interfering with the things you want to do? Select Number: 6 Physical Discomfort or Pain: How confident are you that you can keep the physical discomfort or pain of your disease from interfering with the things you want to do? Select Number: 8 Emotional Distress: How confident are you that you can keep the emotional distress caused by your disease from interfering with the things you want to do? Select Number: 8 Other Symptoms or Health Problems: How confident are you that you can keep other symptoms or health problems from interfering with the things you want to do? Select Number: 8 Different Tasks and Activities: How confident are you that you can do the different tasks and activities needed to manage your health condition so as to reduce your need to see a doctor? Select Number: 9 Medication: How confident are you that you can do things other than just taking medication to reduce how much your illness affects your everyday life? Select Number: 10 Total Score:: 8 Nutrition Survey - Nutrition Survey Instructions Scoring Instructions: Scoring is as follows: Yes = 1 points. No = 0 point. Patient score that is >/=12 is considered to be at potential nutritional risk and could benefit from a referral to a registered dietitian. - Nutrition Survey Initial Have you lost >10 lbs over the past 2 months without trying?: No Are you following a special diet at home for diabetes, low fat, or low salt?: No Are you interested in meeting with a dietitian for help understanding your diet? : No Do you eat less than 3 meals a day?: Yes Do you eat fatty meats (cyr, sausage, ribs, etc), fried foods, desserts, large amounts of salad dressings, margarine, butter, or cheese most days?: No Do you have food allergies? [Enter types in comment field]: No Do you eat in restaurants more than 3 times a week?: Yes Do you season food with salt, seasoning salt, or garlic salt?: No
[2018-03-25 13:19] VITALS: BP 110/68; PULSE 64; RESP 16; TEMP 37.1; O2SAT 98; BMI 31.1
[2018-03-25 14:17] VITALS: O2SAT 98; BMI 31.1
--- NOTE | 2018-03-25 14:18 | PR.DATECOV_ITS ---
Dates of Coverage Times for Dates Of Coverage; All dates of coverage are for physician supervision /medical laboratory technical officer for during the times of 08:00 AM through 4:30 PM. Effective Jun 15, 2013 our hours will be changing to 8:00 to 4:30 on Sunday, Sunday and Sunday. First Date of the Month: 03/25/18 Last Date of the Month: 04/13/18
--- NOTE | 2018-04-05 11:29 | PR.DATECOV_ITS ---
Dates of Coverage Times for Dates Of Coverage; All dates of coverage are for physician supervision /biomedical engineering technician for during the times of 08:00 AM through 4:30 PM. Effective Jun 15, 2013 our hours will be changing to 8:00 to 4:30 on Sunday, Sunday and Sunday. First Date of the Month: 04/14/18 Last Date of the Month: 05/14/18
--- NOTE | 2018-04-05 11:29 | PCM.PR.TP ---
Exercise - 30-Day Assessment - Exercise Prescription Mode:: Treadmill, Airdyne, NuStep, Arm Ergometer Frequency (x/week): 3 - only had 5 sessions Duration:: 30 Aerobic Exercise [30-60 min 3-7x/week]:: Progressing Target heart rate: 106-115 Benito-12 MET Level:: 2.6 - Home Exercise Home Exercise:: No Disease Management - 30-Day - Hypoxemia Reassessment: Demonstrates knowledge of O2 Rx at rest, Demonstrates knowledge of O2 Rx with exercise, Using O2 as prescribed, Has home O2 as prescribed, Uses port O2 as prescribed - Medications Medication list reviewed:: Yes Taking medications 100% of the time:: Approximately 75% of the time Psychosocial - 30-Day - Assessment Reassessment: COPD assessment w/ CAT, Geriatric depression screening, Self efficacy score Nutrition/Wt Mgmt - 30-Day - Weight Management Weight:: 187 lb Patient Health Questionnaire 30-Day Re-eval Assessment 1. Little interest or pleasure in doing things: Several days 2. Feeling down, depressed, or hopeless: Not at all 3. Trouble falling or staying asleep, or sleeping too much: Not at all 4. Feeling tired or having little energy: Several days 5. Poor appetite or overeating: Several days 6. Feeling bad about yourself -- or that you are a failure or have let yourself or your family down: Not at all 7. Trouble concentrating on things, such as reading the newspaper or watching television: Not at all 8. Moving or speaking so slowly that other people could have noticed. Or the opposite - being so fidgety or restless that you have been moving around a lot more than usual: Not at all 9. Thoughts that you would be better off , or of hurting yourself in some way: Not at all How difficult have these problems made it for you to do your work, take care of things at home, or get along with other people?: Not difficult at all Total Score: 3 COPD Assessment Test [CAT] - Questions Never cough = 0, Cough all the time = 5: 2 No phlegm = 0, Chest full of phlegm = 5: 2 No chest tightness = 0, Chest very tight = 5: 2 No breathless w/exertion = 0, Very breathless w/exertion = 5: 4 No limitations w/activity = 0, Very limited w/activity = 5: 3 Confident leaving home = 0, Not at all confident = 5: 0 Sleep soundly = 0, Don't sleep soundly = 5: 0 Lots of energy = 0, No energy at all = 5: 3 Total CAT score:: 16 Self-Efficacy 30-Day Re-eval Assessment We would like to know how confident you are in doing certain activities. Please select your confidence level for:: Select your confidence level for the following using the scale 1-10 where 1 is not at all confident and 10 is totally confident. Your score is the average of all 6 responses. Fatigue: How confident are you that you can keep the fatigue caused by your disease from interfering with the things you want to do? Select Number: 6 Physical Discomfort or Pain: How confident are you that you can keep the physical discomfort or pain of your disease from interfering with the things you want to do? Select Number: 8 Emotional Distress: How confident are you that you can keep the emotional distress caused by your disease from interfering with the things you want to do? Select Number: 8 Other Symptoms or Health Problems: How confident are you that you can keep other symptoms or health problems from interfering with the things you want to do? Select Number: 8 Different Tasks and Activities: How confident are you that you can do the different tasks and activities needed to manage your health condition so as to reduce your need to see a doctor? Select Number: 9 Medication: How confident are you that you can do things other than just taking medication to reduce how much your illness affects your everyday life? Select Number: 10 Total Score:: 8
== END 2018-04-13 23:59 ==
LOC: PR 10:15
PROVIDERS: Family Provider Family Medicine; PCP Family Medicine; Visit Provider Family Medicine
DX: J43.9 Emphysema, unspecified (principal)
CPT/HCPCS: 97150; G0424

== ENCOUNTER → 2018-04-16 09:43 | Outpatient (CLI) | payer MEDICARE, OTHER, SELFPAY ==
[2018-04-16 12:19] LABS: Hemoglobin 12.5 g/dl (12.0-15.0); Mean Corp Hgb Conc 32.1 g/gl (32-36); Mean Corpuscular Hgb 29.7 pg (27.0-32.0); Mean Corpuscular Volume 92.6 fL (81-99); Platelet Count 245 K/mm3 (150-450); RBC Distribution Width CV 13.5 % (11.6-14.6); RBC Distribution Width SD 45.2 fl (35.1-43.9); Red Blood Count 4.21 M/mm3 (4.2-5.4)
[2018-04-16 12:23] LABS: Scan Indicated on CBC? Y/N NO
[2018-04-16 12:46] LABS: Anion Gap 8 (5-15); BUN 27 mg/dL (7-18); BUN/Creat Ratio 22.9 RATIO (10-20); Calcium,Total 8.9 mg/dL (8.5-10.1); Chloride 107 mmol/L (98-107); Cholesterol 135 mg/dL (200); Creatinine, Serum 1.18 mg/dL (0.55-1.02); EST Glomerular Filtration Rate 49 mL/min (>60); Est Glom Filt Rate - Afr Amer 59 mL/min (>60); Glucose 126 mg/dL (74-106); High Density Lipoprotein 42 mg/dL; Potassium 4.2 mmol/L (3.5-5.1); Sodium Level 140 mmol/L (136-145); Thyroid Stim Hormone (TSH) 0.05 uIU/mL (0.358-3.74); Triglycerides 121 mg/dL; Very Low Density Lipoprotein 24 mg/dL (5-40)
== END ==
PROVIDERS: Visit Provider Family Medicine
DX: N18.9 Chronic kidney disease, unspecified (principal); E78.5 Hyperlipidemia, unspecified; E03.9 Hypothyroidism, unspecified
CPT/HCPCS: 36415; 80048; 80061; 84443; 85027

== ENCOUNTER 2018-05-13 10:15 | Outpatient (RCR) | payer MEDICARE, OTHER, SELFPAY ==
[2018-04-14 00:13] VITALS: BP 110/68; PULSE 64; RESP 16; TEMP 37.1; O2SAT 98
--- NOTE | 2018-05-07 08:33 | PR.DATECOV_ITS ---
Dates of Coverage Times for Dates Of Coverage; All dates of coverage are for physician supervision /registered medical assistant for during the times of 08:00 AM through 4:30 PM. Effective Jun 15, 2013 our hours will be changing to 8:00 to 4:30 on Sunday, Sunday and Sunday. First Date of the Month: 05/15/18 Last Date of the Month: 06/14/18
--- NOTE | 2018-05-07 08:41 | PR.ITP_ITS ---
General Information - Education/Goals Patient Goals: Breathe better: 60-Day Assessment - Progressing, Increase endurance/stamina: 60-Day Assessment - Participating in more activities., Return to recreation/hobby: 60-Day Assessment - More social., Symptom management : 60-Day Assessment - able to decrease portable oxygen use. Exercise - 60-Day Assessment - Current Level Mode:: Treadmill, NuStep, Arm Ergometer Frequency (x/week): 3 Duration:: 30 Aerobic Exercise [30-60 min 3-7x/week]:: Progressing Target heart rate: 116-123 Benito-12 MET Level:: 4.5 - No oxygen use w/exercise. - Home Exercise Home Exercise:: Yes Frequency:: walking Time (minutes):: 30 Disease Management - 60-Day - Hypoxemia Reassessment: Demonstrates knowledge of O2 Rx at rest, Demonstrates knowledge of O2 Rx with exercise, Using O2 as prescribed, Has home O2 as prescribed - Medications Medication list reviewed:: Yes Taking medications 100% of the time:: Met Medication reassessment: Yes Pt demonstrates correct technique timing for MDI, Yes Pt demonstrates correct technique timing for DPI, Yes Pt demonstrates correct technique timing for NEB, Yes Pt demonstrates correct technique timing for spacer - Returned demonstration use of spacer device - Bronchial Hygiene Bronchial Hygiene Plan: Yes Pt demo correct for device - Returned demonstration use of SMI and IMT devices, Yes Pt demo correct for improved hydration, Yes Pt demo correct for hand hygiene, Yes Pt demo correct for verbalize when to call MD Psychosocial - 60-Day - Assessment Depression reassess: Management of stress: Met, Management of depression: Met, Practicing interventions: Met Tobacco - 60-Day Assessment - Program Goals Tobacco Program Goals: Complete smoking cessation. Attend education classes. Improve Knowledge Test score - Stage of Change Stages of Change:: Action - Learning Barriers Learning Barriers: Participates in education - Family Support Do you have family support?: Yes - Tobacco Use Tobacco Use: Non-smoker - Intervention Education Schedule Given:: Yes - Education Gave Education Materials For:: Pulmonary Disease, Risk Factors, Breathing Techniques, Medical Compliance, Pulmonary A&P, Exacerbation Signs & Symptoms, Stress & Relaxation Nutrition/Wt Mgmt - 60-Day - Weight Management Weight Assessment:: Wt loss 1-2 lbs per week, Wt stable Weight:: 190 lb - BMI 31 Weight Goals Progress:: Referral to structured weight management program - Encouraged patient to use practices to reduce weight, Patient Health Questionnaire 60-Day Re-eval Assessment 1. Little interest or pleasure in doing things: Not at all 2. Feeling down, depressed, or hopeless: Not at all 3. Trouble falling or staying asleep, or sleeping too much: Not at all 4. Feeling tired or having little energy: Not at all 5. Poor appetite or overeating: Several days 6. Feeling bad about yourself -- or that you are a failure or have let yourself or your family down: Not at all 7. Trouble concentrating on things, such as reading the newspaper or watching television: Not at all 8. Moving or speaking so slowly that other people could have noticed. Or the opposite - being so fidgety or restless that you have been moving around a lot more than usual: Not at all 9. Thoughts that you would be better off , or of hurting yourself in some way: Not at all How difficult have these problems made it for you to do your work, take care of things at home, or get along with other people?: Not difficult at all Total Score: 1 COPD Assessment Test [CAT] - Questions Never cough = 0, Cough all the time = 5: 2 No phlegm = 0, Chest full of phlegm = 5: 2 No chest tightness = 0, Chest very tight = 5: 2 No breathless w/exertion = 0, Very breathless w/exertion = 5: 3 No limitations w/activity = 0, Very limited w/activity = 5: 2 Confident leaving home = 0, Not at all confident = 5: 0 Sleep soundly = 0, Don't sleep soundly = 5: 0 Lots of energy = 0, No energy at all = 5: 2 Total CAT score:: 13 Self-Efficacy 60-Day Re-eval Assessment We would like to know how confident you are in doing certain activities. Please select your confidence level for:: Select your confidence level for the following using the scale 1-10 where 1 is not at all confident and 10 is totally confident. Your score is the average of all 6 responses. Fatigue: How confident are you that you can keep the fatigue caused by your disease from interfering with the things you want to do? Select Number: 7 Physical Discomfort or Pain: How confident are you that you can keep the physical discomfort or pain of your disease from interfering with the things you want to do? Select Number: 9 Emotional Distress: How confident are you that you can keep the emotional distress caused by your disease from interfering with the things you want to do? Select Number: 9 Other Symptoms or Health Problems: How confident are you that you can keep other symptoms or health problems from interfering with the things you want to do? Select Number: 9 Different Tasks and Activities: How confident are you that you can do the different tasks and activities needed to manage your health condition so as to reduce your need to see a doctor? Select Number: 10 Medication: How confident are you that you can do things other than just taking medication to reduce how much your illness affects your everyday life? Select Number: 10 Total Score:: 9
== END 2018-05-14 23:59 ==
LOC: PR 10:15
PROVIDERS: Family Provider Family Medicine; PCP Family Medicine; Visit Provider Family Medicine
DX: J43.9 Emphysema, unspecified (principal); C34.12 Malignant neoplasm of upper lobe, left bronchus or lung
CPT/HCPCS: 97150; G0424

== ENCOUNTER 2018-06-14 10:15 | Outpatient (RCR) | payer MEDICARE, OTHER, SELFPAY ==
[2018-05-15 00:20] VITALS: BP 110/68; PULSE 64; RESP 16; TEMP 37.1; O2SAT 98
--- NOTE | 2018-06-07 09:44 | PCM.PR.DAT ---
Dates of Coverage Times for Dates Of Coverage; All dates of coverage are for physician supervision/medical billing specialist for during the times of 08:00 AM through 4:30 PM. Effective Jun 15, 2013 our hours will be changing to 8:00 to 4:30 on Sunday, Sunday and Sunday. First Date of the Month: 06/15/18 Last Date of the Month: 07/14/18
--- NOTE | 2018-06-07 09:47 | PR.DATECOV_ITS ---
Dates of Coverage Times for Dates Of Coverage; All dates of coverage are for physician supervision /adjunct faculty for medical terminology for during the times of 08:00 AM through 4:30 PM. Effective Jun 15, 2013 our hours will be changing to 8:00 to 4:30 on Sunday, Sunday and Sunday. First Date of the Month: 06/15/18 Last Date of the Month: 07/14/18
--- NOTE | 2018-06-07 09:57 | PR.ITP_ITS ---
Exercise - 90-Day Assessment - Exercise Prescription Mode:: Treadmill, NuStep, Arm Ergometer Frequency (x/week): 3 Duration:: 35 Aerobic Exercise [30-60 min 3-7x/week]:: Progressing Target heart rate: 116-123 Benito-13 MET Level:: 5 - Home Exercise Home Exercise?: Yes Time (minutes):: 30 - walking Disease Management - 90-Day - Medications Taking medications 100% of the time:: Met Medication reassessment: Yes Pt demonstrates correct technique timing for MDI, Yes Pt demonstrates correct technique timing for DPI, Yes Pt demonstrates correct technique timing for NEB, Yes Pt demonstrates correct technique timing for spacer - returned use of acapella - Bronchial Hygiene Bronchial Hygiene Plan: Yes Pt demo correct for device - return use of acapella Psychosocial - 90-Day - Assessment Depression reassess: Management of stress: Progressing, Management of depression : Progressing, Practicing interventions: Progressing Tobacco - 90-Day Assessment - Program Goals Tobacco Program Goals: Complete smoking cessation. Attend education classes. Improve Knowledge Test score - Stage of Change Stages of Change:: Action - Learning Barriers Learning Barriers: Participates in education - Family Support Do you have family support?: Yes - Tobacco Use Tobacco Use: Non-smoker Do you use smokeless tobacco?: No - Intervention Education Schedule Given:: Yes - Education Gave Education Materials For:: Pulmonary Disease, Risk Factors, Breathing Techniques, Medical Compliance, Pulmonary A&P, Exacerbation Signs & Symptoms, Stress & Relaxation Nutrition/Wt Mgmt - 90-Day - Weight Management Weight Assessment:: Wt loss 1-2 lbs per week Weight:: 192 lb Weight Goals Progress:: Progressing Patient Health Questionnaire 90-Day Re-eval Assessment 1. Little interest or pleasure in doing things: Not at all 2. Feeling down, depressed, or hopeless: Not at all 3. Trouble falling or staying asleep, or sleeping too much: Not at all 4. Feeling tired or having little energy: Not at all 5. Poor appetite or overeating: Not at all 6. Feeling bad about yourself -- or that you are a failure or have let yourself or your family down: Not at all 7. Trouble concentrating on things, such as reading the newspaper or watching television: Not at all 8. Moving or speaking so slowly that other people could have noticed. Or the opposite - being so fidgety or restless that you have been moving around a lot more than usual: Not at all 9. Thoughts that you would be better off , or of hurting yourself in some way: Not at all How difficult have these problems made it for you to do your work, take care of things at home, or get along with other people?: Not difficult at all Total Score: 0 COPD Assessment Test [CAT] - Questions Never cough = 0, Cough all the time = 5: 2 No phlegm = 0, Chest full of phlegm = 5: 2 No chest tightness = 0, Chest very tight = 5: 2 No breathless w/exertion = 0, Very breathless w/exertion = 5: 3 No limitations w/activity = 0, Very limited w/activity = 5: 2 Confident leaving home = 0, Not at all confident = 5: 0 Sleep soundly = 0, Don't sleep soundly = 5: 0 Lots of energy = 0, No energy at all = 5: 2 Total CAT score:: 13 Self-Efficacy 90-Day Re-eval Assessment We would like to know how confident you are in doing certain activities. Please select your confidence level for:: Select your confidence level for the following using the scale 1-10 where 1 is not at all confident and 10 is totally confident. Your score is the average of all 6 responses. Fatigue: How confident are you that you can keep the fatigue caused by your disease from interfering with the things you want to do? Select Number: 9 Physical Discomfort or Pain: How confident are you that you can keep the physical discomfort or pain of your disease from interfering with the things you want to do? Select Number: 10 Emotional Distress: How confident are you that you can keep the emotional distress caused by your disease from interfering with the things you want to do? Select Number: 10 Other Symptoms or Health Problems: How confident are you that you can keep other symptoms or health problems from interfering with the things you want to do? Select Number: 10 Different Tasks and Activities: How confident are you that you can do the different tasks and activities needed to manage your health condition so as to reduce your need to see a doctor? Select Number: 10 Medication: How confident are you that you can do things other than just taking medication to reduce how much your illness affects your everyday life? Select Number: 10 Total Score:: 9
== END 2018-06-14 23:59 ==
LOC: PR 10:15
PROVIDERS: Family Provider Family Medicine; PCP Family Medicine; Visit Provider Family Medicine
DX: J43.9 Emphysema, unspecified (principal); C34.12 Malignant neoplasm of upper lobe, left bronchus or lung
CPT/HCPCS: 97150; G0424

== ENCOUNTER 2018-06-21 10:15 | Outpatient (RCR) | payer MEDICARE, OTHER, SELFPAY ==
[2018-06-15 00:32] VITALS: BP 110/68; PULSE 64; RESP 16; TEMP 37.1; O2SAT 98
== END 2018-07-14 23:59 ==
LOC: PR 10:15
PROVIDERS: Family Provider Family Medicine; PCP Family Medicine; Visit Provider Family Medicine
DX: J43.9 Emphysema, unspecified (principal); C34.12 Malignant neoplasm of upper lobe, left bronchus or lung
CPT/HCPCS: 97150; G0424

== ENCOUNTER → 2018-07-15 14:23 | Outpatient (CLI) | payer MEDICARE, OTHER, SELFPAY ==
[2018-07-15 15:37] LABS: Thyroid Stim Hormone (TSH) 0.25 uIU/mL (0.358-3.74)
== END ==
PROVIDERS: Family Provider Family Medicine; PCP Family Medicine; Visit Provider Family Medicine
DX: E03.9 Hypothyroidism, unspecified (principal)
CPT/HCPCS: 36415; 84443

== ENCOUNTER → 2018-10-28 14:24 | Outpatient (CLI) | payer MEDICARE, OTHER, SELFPAY ==
[2018-10-30 07:10] LABS: HEPATITIS B SURFACE AG Negative (Negative); Hepatitis A AB, Total Negative (Negative); Hepatitis A IgM Antibody Negative (Negative); Hepatitis B Core AB IgM Negative (Negative); Hepatitis B Core Ab Total Negative (Negative); Hepatitis C Ab 0.1 s/co ratio (0.0-0.9)
[2018-10-30 11:27] LABS: Hep B Surface Antibodies Non Reactive (.)
== END ==
PROVIDERS: Family Provider Family Medicine; PCP Family Medicine; Referring Provider Dermatology Pediatric Dermatology; Visit Provider Dermatology Pediatric Dermatology
DX: L43.0 Hypertrophic lichen planus (principal)
CPT/HCPCS: 36415; 86704; 86705; 86706; 86708; 86709; 86803; 87340

== ENCOUNTER → 2018-11-06 14:14 | Outpatient (CLI) | payer MEDICARE, OTHER, SELFPAY ==
[2018-11-06 18:31] LABS: T4 Free Direct 1.22 ng/dL (0.76-1.46); Thyroid Stim Hormone (TSH) 4.94 uIU/mL (0.358-3.74)
--- OUTSIDE RECORDS SUMMARY | 2019-01-08 14:46 | XMS RPT_ITS ---
:1950 Author Organization OHIP Support Name Relationship Address Phone HAMMER, MARGIE Unavailable [address] + [place] [address] ARSALAN BLANKENSHIP Unavailable [address] + [place] [address] R Unavailable Unavailable Unavailable HAMMER, MARGIE Unavailable [address] + [place] [address] ARSALAN BLANKENSHIP Unavailable [address] + [place] [address] R Unavailable Unavailable Unavailable HAMMER, MARGIE Unavailable [address] + [place] [address] ARSALAN BLANKENSHIP Unavailable [address] + [place] [address] R Unavailable Unavailable Unavailable HAMMER, MARGIE Unavailable [address] + [place] [address] ARSALAN BLANKENSHIP Unavailable [address] + [place] [address] R Unavailable Unavailable Unavailable HAMMER, MARGIE Unavailable [address] + [place] [address] ARSALAN BLANKENSHIP Unavailable [address] + [place] [address] R Unavailable Unavailable Unavailable HAMMER, MARGIE Unavailable [address] + [place] [address] ARSALAN BLANKENSHIP Unavailable [address] + [place] [address] R Unavailable Unavailable Unavailable HAMMER, MARGIE Unavailable [address] + [place] [address] ARSALAN BLANKENSHIP Unavailable [address] + [place] [address] R Unavailable Unavailable Unavailable HAMMER, MARGIE Unavailable [address] + [place] [address] EARNEST BLANKENSHIPNN Unavailable [address] + [place] [address] R Unavailable Unavailable Unavailable HAMMER, MARGIE Unavailable [address] + [place] [address] EARNEST BLANKENSHIPNN Unavailable [address] + [place] [address] R Unavailable Unavailable Unavailable HAMMER, MARGIE Unavailable [address] + [place] [address] EARNEST BLANKENSHIPNN Unavailable [address] [phone] [place] [address] R Unavailable Unavailable Unavailable HAMMER, MARGIE Unavailable [address] + [place] [address] EARNEST BLANKENSHIPNN Unavailable [address] [phone] [place] [address] R Unavailable Unavailable Unavailable HAMMER, MARGIE Unavailable [address] + [place] [address] EARNEST BLANKENSHIPNN Unavailable [address] [phone] [place] [address] R Unavailable Unavailable Unavailable Care Team Providers Name Role Phone RENEE KOROMA Referring Unavailable RENEE KOROMA Referring Unavailable RENEE KOROMA Attending Unavailable RENEE KOROMA Referring Unavailable RENEE KOROMA Referring Unavailable RENEE KOROMA Referring Unavailable RENEE KOROMA Attending Unavailable RENEE KOROMA Referring Unavailable Saqib Peresen Attending Unavailable Larisa Lien Referring Unavailable Marianela, Christopher Primary Care Unavailable Sandie Bear Attending Unavailable Sandie Bear Primary Care Unavailable Sandie Bear Attending Unavailable Sandie Bear Referring Unavailable Marianela, Christopher Primary Care Unavailable Sandie Bear Attending Unavailable Marianela, Christopher Primary Care Unavailable Sandie Bear Attending Unavailable Marianela, Christopher Primary Care Unavailable Sandie Bear Attending Unavailable Sandie Bear Referring Unavailable Marianela, Christkimberly Primary Care Unavailable Sandie Bear Attending Unavailable Sandie Bear Referring Unavailable Ranney, Christopher Primary Care Unavailable Ranney, Christopher Attending Unavailable Ranney, Christopher Attending Unavailable Ranney, Christopher Referring Unavailable Ranney, Christopher Primary Care Unavailable Ranney, Christopher Attending Unavailable Ranney, Christopher Referring Unavailable Ranney, Christopher Primary Care Unavailable Ranney, Christopher Attending Unavailable Ranney, Christopher Referring Unavailable Ranney, Christopher Primary Care Unavailable Ranney, Christopher Attending Unavailable Ranney, Christopher Primary Care Unavailable PROBLEMS PROBLEMS DATE TYPE CONDITION / CODE ATTENDING STATUS SOURCE 07/15/2018 Unknown J43.9 - Emphysema, [facility], [facility] [place] J43.9(ICD-10) Hospital Repository 07/15/2018 Unknown C34.12 - Malignant Ranney, Active [facility] neoplasm of upper [facility] lobe, left bronchus Hospital or lung / Repository C34.12(ICD-10) 07/27/2017 Active Other acute NA Active [facility] Main / G89.18(ICD-10) [place] Repository 07/27/2017 Active Malignant neoplasm NA Active [facility] of upper lobe, left Clinic Main bronchus or lung / [place] C34.12(ICD-10) Repository 11/29/2017 Unknown R06.00 - Dyspnea, [facility], [facility] / [facility] R06.00(ICD-10) Hospital Repository PROCEDURES PROCEDURES No Procedure Records FoundRESULTS RESULTS THYROID STIM HORMONE Collected: 11/06/2018 Status: F Source: [place] (TSH) 2:16 PM [facility] REPOSITORY TYPE CODE TESTS RESULT OUT OF RANGE REFERENCE UNITS LAB L501.9520 0.358-3.74 uIU/mL High TSH 4.94 Performed By: #### L501.9520, L506.0400 #### [facility] [address] [place], [place], [address] T4 FREE DIRECT Collected: 11/06/2018 Status: F Source: [place]EL 2:16 PM [facility] REPOSITORY TYPE CODE TESTS RESULT OUT OF RANGE REFERENCE UNITS LAB L506.0400 0.76-1.46 ng/dL Normal T4 FREE 1.22 DIRECT Performed By: #### L501.9520, L506.0400 #### [facility] [address] [place], [address] HEPATITIS ABC PROFILE Collected: 10/28/2018 Status: F Source: [place] 2:33 PM [facility] REPOSITORY TYPE CODE TESTS RESULT OUT OF RANGE REFERENCE UNITS LAB L3100.0200 Negative Normal HEP A Negative IgM 6734 LAB L3100.0300 Negative Normal HEP A Negative AB,T.6726 LAB L3100.0400 Negative Normal HB Negative SURF AG LAB L3100.0440 Negative Normal HB Negative CORE [id number] LAB L3100.0460 Negative Normal HEP B Negative CORE,TOT LAB L3100.0510 . Normal Hep B Non Reactive Pernell AB Result Comment: Non Reactive: Inconsistent with immunity, less than 10 mIU/mL Reactive: Consistent with immunity, greater than 9.9 mIU/mL LAB L3100.0750 0.0-0.9 s/co ratio Normal HCV Ab 0.1 LAB L3100.0765 . Normal COMMENT Comment Result Comment: Non reactive HCV antibody screen is consistent with no HCV infection, unless recent infection is suspected or other evidence exists to indicate HCV infection. Performed at: [facility] [id number] Senior Director Finance: Mark Aaron PhD, Phone: [phone] Performed By: #### L3000.0700 #### [facility] (refer to report for specific site) refer to report for address and phone number THYROID STIM HORMONE Collected: 07/15/2018 Status: F Source: [place]EL (TSH) 2:27 PM [facility] REPOSITORY Order Comment: Order Date: 04/19/18 Order Info: 3016-3 - TSH TYPE CODE TESTS RESULT OUT OF RANGE REFERENCE UNITS LAB L501.9520 0.358-3.74 uIU/mL Low TSH 0.25 Performed By: #### L501.9520 #### [facility] [employer] [facility] [place], [address] PROGRESS Observed: 06/26/2018 Status: COMPLETED Source: [place] 2:45 PM [facility] REPOSITORY HNO ID: [id number] Author: Renee Koroma Service: (none) Author Type: Physician Type: Progress Notes Filed: 06/27/2018 2:21 PM Note Text: PATIENT NAME: Marichuy Blankenship. CLINIC NO: [id number]. ATTENDING PHYSICIAN: Renee Koroma MD. DATE OF SERVICE: 06/26/2018 ?? DIAGNOSIS: Clinical Stage 3A, T3, N2, Non-small cell lung cancer; neoadjuvant chemo-radiation therapy, s/p left upper lobectomy with chest wall reconstruction, bronchoplasty, arterioplasty. postthoracotomy pain. ?? HPI: Marichuy Blankenship is a 68 year old female who presents with pleuritic chest pain. ?She is scheduled for chemotherapy treatment next week concurrently with radiation therapy. ?? H/o patient was in her usual state of health when she was referred for a screening CT scan in February 2017. ?This revealed a 4 cm left upper lobe spiculated mass suspicious for malignancy, with a in enlarged mediastinal lymph node. ?Biopsy was done confirming squamous cell carcinoma on March 26, 2017. ?PET scan was done showing uptake within the mass and the mediastinum, however no distant disease was noted. ?An MRI of the brain is pending. ? ?? The patient has no symptoms related to her lung cancer?such as cough, hemoptysis, hoarseness or weight loss. Although she does describe some tenderness in her anterior chest and posterior left shoulder. ??Her pain is there all the time and no alleviating factor except for pain medications. She is able to walk and climb stairs without any limitations?or shortness of breath. ?? Patient has a history of CAD and status post coronary stent placement in 2014. Bronchoscopy/EBUS confirmed benign lymphoid samples from 4R, 4L, 7, and 11L LN stations. PFTs performed on 03/29/17 reported a FEV1 of 1.76L / 79% and DLCO of 57% predicted. MRI brain was negative for metastatic disease. Patient was recommended to have primary modality therapy with concurrent chemotherapy and radiation therapy before surgery. She was seen by Dr. Brannon as well at [facility] for radiation therapy. ?? Previous chemotherapy:Cisplatin/VP16/XRT (05/21/2017 - 07/16/2017) ?? Interim history:?Patient had her surgery with?left upper lobectomy with chest wall reconstruction, bronchoplasty, arterioplasty last year. ?She still has?chest pain, but is improving since her surgery. ?? She has no cough or shortness of breath on Oxygen saturation is 97% on room air.?Patient has no headaches or other neurological symptoms.? ?? Patient has no fever, chills or night sweats. Her weight and appetite is stable.? ? Appetite: Good.?Energy level: good. Denies fevers. Mouth:denies sores Resp: Occasional cough with nebulizer treatment, no shortness of breath Cardiac:denies chest pain/palpitations GI:denies abd pain, denies nausea or vomiting, diarrhea :denies dysuria/hematuria Extrem:denies pain Neuro:denies symptoms of neuropathy Skin:denies rashes/lesions Heme:denies bleeding ?? The ROS is otherwise negative. ?? All medications AND allergies and KP score updated and reviewed by me. ?? EXAM: Performance status: 80%; APPEARANCE Well appearing, alert, in no acute distress, well-hydrated, well nourished. BP 109/71 Pulse 74 Temp (Src) 98.4 (Oral) Wt 195 lb (88.5kg) SpO2 97% MOUTH no mucositis. HEART sinus rhythm,?normal S1 and S2, no murmurs LUNG clear to auscultation; diminished breath left lung base, no wheezing or rhonchi. LYMPH NODES No cervical lymphadenopathy, No supraclavicular lymphadenopathy and No axillary lymphadenopathy. ABDOMEN bowel sounds normoactive, no bruits, soft, non-tender, non-distended, without organomegaly or palpable masses EXTREMITIES no edema. ?no erythema or tenderness NEURO Awake, alert and oriented x 3, Normal gait and No involuntary motions. SKIN Skin color, texture, turgor normal, no suspicious rashes or lesions ?? LABS:? Component Latest Ref Rng AND Units 06/21/2018 Protein, Total 6.3 - 8.0 g/dL 7.0 Albumin 3.9 - 4.9 g/dL 4.0 Calcium 8.5 - 10.2 mg/dL 8.8 Bilirubin, Total 0.2 - 1.3 mg/dL 0.6 Alkaline Phosphatase 32 - 117 U/L 154 (H) AST 13 - 35 U/L 28 Glucose 74 - 99 mg/dL 99 BUN 7 - 21 mg/dL 20 Creatinine 0.58 - 0.96 mg/dL 1.21 (H) Sodium 136 - 144 mmol/L 141 Potassium 3.7 - 5.1 mmol/L 4.3 Chloride 97 - 105 mmol/L 101 CO2 22 - 30 mmol/L 28 Anion Gap 9 - 18 mmol/L 12 ALT 7 - 38 U/L 32 eGFR- 54 eGFR-All Other Races . 45 WBC, Fidel 3.70 - 11.00 k/uL 9.48 RBC, Hope 3.90 - 5.20 m/uL 4.19 Hemoglobin, [facility] 11.5 - 15.5 g/dL 12.7 Hematocrit, Fidel 36.0 - 46.0 % 39.3 MCV, Fidel 80.0 - 100.0 fL 93.8 MCH, Fidel 26.0 - 34.0 pg 30.3 MCHC, Fidel 30.5 - 36.0 g/dL 32.3 RDW, Fidel 11.5 - 15.0 % 13.2 Platelet Cnt, Fidel 150 - 400 k/uL 247 MPV, Fidel 9.0 - 12.7 fL 8.5 (L) Absol Gran Count 1.45 - 7.50 k/uL 7.03 CXR: Comparison: ?Comparison is made to prior chest dated [address] chest dated 21 December 2017 RESULT: Lines, tubes, and devices: ?None. Lungs and pleura: Chronic interstitial lung changes as well as postsurgical changes of the left lung again identified. There is progressive airspace consolidation of the left lung apex. Mediastinal shift to the left is unchanged. No superimposed new airspace process or overt pulmonary edema Cardiomediastinal silhouette: ?Unchanged cardiomediastinal silhouette. Other: The bony structures are intact IMPRESSION: Postsurgical changes left lung apex with increased confluent at the ninth of the left lung apex which could represent increased atelectasis and Fibrosis. ASSESSMENT/PLAN: 1. Cancer of trachea, bronchus, and lung (HCC) - ICD9: 162.8, ICD10: C33, C34.80 Clinical stage IIIA, T3N2, non-small cell (squamous cell) lung cancer of the left upper lobe) -?Patient had a complete pathological response after chemotherapy and radiation. -?s/p left upper lobectomy with chest wall reconstruction, bronchoplasty, arterioplasty ? Patient is slowly recovering from chronic?thoracotomy pain. ?BRENDA. anemia has resolved. ?? 2. chronic dyspnea secondary to radiation, surgery and COPD- stable ??-She is off oxygen and pulmonary function is improving with pulmonary rehabilitation PLAN: - Stop iron. - Repeat CT scan of chest in 6 months. - Follow-up with pulmonary medicine and pulmonary rehabilitation. - Flu vaccine also recommended AND she may also get the shingles vaccine. Discussed with PCP. - CBC, BMP stat OV in 6 months. Renee Koroma MD Cc: Dr. Sujatha Bear CNOVSP Observed: 06/26/2018 Status: COMPLETED Source: [place] 2:40 PM [facility] REPOSITORY Visit (SP) Office (CLEM) MARICHUY BLANKENSHIP ([id number]) 1950 F Date Time Provider Department 06/26/18 2:40 PM RENEE KOROMA During your visit today, we recorded the following information about you: Temperature Pulse Blood pressure Weight 98.4 degrees 74/minute 109/71 88.5 kg Renee Koroma MD 06/27/2018 2:21 PM Signed PATIENT NAME: Marichuy Blankenship. CLINIC NO: [id number]. ATTENDING PHYSICIAN: Renee Koroma MD. DATE OF SERVICE: 06/26/2018 ?? DIAGNOSIS: Clinical Stage 3A, T3, N2, Non-small cell lung cancer; neoadjuvant chemo-radiation therapy, s/p left upper lobectomy with chest wall reconstruction, bronchoplasty, arterioplasty. postthoracotomy pain. ?? HPI: Marichuy Blankenship is a 68 year old female who presents with pleuritic chest pain. ?She is scheduled for chemotherapy treatment next week concurrently with radiation therapy. ?? H/o patient was in her usual state of health when she was referred for a screening CT scan in February 2017. ?This revealed a 4 cm left upper lobe spiculated mass suspicious for malignancy, with a in enlarged mediastinal lymph node. ?Biopsy was done confirming squamous cell carcinoma on March 26, 2017. ?PET scan was done showing uptake within the mass and the mediastinum, however no distant disease was noted. ?An MRI of the brain is pending. ? ?? The patient has no symptoms related to her lung cancer?such as cough, hemoptysis, hoarseness or weight loss. Although she does describe some tenderness in her anterior chest and posterior left shoulder. ??Her pain is there all the time and no alleviating factor except for pain medications. She is able to walk and climb stairs without any limitations?or shortness of breath. ?? Patient has a history of CAD and status post coronary stent placement in 2014. Bronchoscopy/EBUS confirmed benign lymphoid samples from 4R, 4L, 7, and 11L LN stations. PFTs performed on 03/29/17 reported a FEV1 of 1.76L / 79% and DLCO of 57% predicted. MRI brain was negative for metastatic disease. Patient was recommended to have primary modality therapy with concurrent chemotherapy and radiation therapy before surgery. She was seen by Dr. Brannon as well at [facility] for radiation therapy. ?? Previous chemotherapy:Cisplatin/VP16/XRT (05/21/2017 - 07/16/2017) ?? Interim history:?Patient had her surgery with?left upper lobectomy with chest wall reconstruction, bronchoplasty, arterioplasty last year. ?She still has?chest pain, but is improving since her surgery. ?? She has no cough or shortness of breath on Oxygen saturation is 97% on room air.?Patient has no headaches or other neurological symptoms.? ?? Patient has no fever, chills or night sweats. Her weight and appetite is stable.? ? Appetite: Good.?Energy level: good. Denies fevers. Mouth:denies sores Resp: Occasional cough with nebulizer treatment, no shortness of breath Cardiac:denies chest pain/palpitations GI:denies abd pain, denies nausea or vomiting, diarrhea :denies dysuria/hematuria Extrem:denies pain Neuro:denies symptoms of neuropathy Skin:denies rashes/lesions Heme:denies bleeding ?? The ROS is otherwise negative. ?? All medications AND allergies and KP score updated and reviewed by me. ?? EXAM: Performance status: 80%; APPEARANCE Well appearing, alert, in no acute distress, well- hydrated, well nourished. BP 109/71 Pulse 74 Temp (Src) 98.4 (Oral) Wt 195 lb (88.5kg) SpO2 97% MOUTH no mucositis. HEART sinus rhythm,?normal S1 and S2, no murmurs LUNG clear to auscultation; diminished breath left lung base, no wheezing or rhonchi. LYMPH NODES No cervical lymphadenopathy, No supraclavicular lymphadenopathy and No axillary lymphadenopathy. ABDOMEN bowel sounds normoactive, no bruits, soft, non-tender, non-distended, without organomegaly or palpable masses EXTREMITIES no edema. ?no erythema or tenderness NEURO Awake, alert and oriented x 3, Normal gait and No involuntary motions. SKIN Skin color, texture, turgor normal, no suspicious rashes or lesions ?? LABS:? Component Latest Ref Rng AND Units 06/21/2018 Protein, Total 6.3 - 8.0 g/dL 7.0 Albumin 3.9 - 4.9 g/dL 4.0 Calcium 8.5 - 10.2 mg/dL 8.8 Bilirubin, Total 0.2 - 1.3 mg/dL 0.6 Alkaline Phosphatase 32 - 117 U/L 154 (H) AST 13 - 35 U/L 28 Glucose 74 - 99 mg/dL 99 BUN 7 - 21 mg/dL 20 Creatinine 0.58 - 0.96 mg/dL 1.21 (H) Sodium 136 - 144 mmol/L 141 Potassium 3.7 - 5.1 mmol/L 4.3 Chloride 97 - 105 mmol/L 101 CO2 22 - 30 mmol/L 28 Anion Gap 9 - 18 mmol/L 12 ALT 7 - 38 U/L 32 eGFR- 54 eGFR-All Other Races . 45 WBC, Fidel 3.70 - 11.00 k/uL 9.48 RBC, Fidel 3.90 - 5.20 m/uL 4.19 Hemoglobin, Hope 11.5 - 15.5 g/dL 12.7 Hematocrit, [facility] 36.0 - 46.0 % 39.3 MCV, Fidel 80.0 - 100.0 fL 93.8 MCH, Fidel 26.0 - 34.0 pg 30.3 MCHC, [facility] 30.5 - 36.0 g/dL 32.3 RDW, Fidel 11.5 - 15.0 % 13.2 Platelet Cnt, Hope 150 - 400 k/uL 247 MPV, [facility] 9.0 - 12.7 fL 8.5 (L) Absol Gran Count 1.45 - 7.50 k/uL 7.03 CXR: Comparison: ?Comparison is made to prior chest dated [address] chest dated 21 December 2017 RESULT: Lines, tubes, and devices: ?None. Lungs and pleura: Chronic interstitial lung changes as well as postsurgical changes of the left lung again identified. There is progressive airspace consolidation of the left lung apex. Mediastinal shift to the left is unchanged. No superimposed new airspace process or overt pulmonary edema Cardiomediastinal silhouette: ?Unchanged cardiomediastinal silhouette. Other: The bony structures are intact IMPRESSION: Postsurgical changes left lung apex with increased confluent at the ninth of the left lung apex which could represent increased atelectasis and Fibrosis. ASSESSMENT/PLAN: 1. Cancer of trachea, bronchus, and lung (HCC) - ICD9: 162.8, ICD10: C33, C34.80 Clinical stage IIIA, T3N2, non-small cell (squamous cell) lung cancer of the left upper lobe) -?Patient had a complete pathological response after chemotherapy and radiation. -?s/p left upper lobectomy with chest wall reconstruction, bronchoplasty, arterioplasty ? Patient is slowly recovering from chronic?thoracotomy pain. ?BRENDA. anemia has resolved. ?? 2. chronic dyspnea secondary to radiation, surgery and COPD- stable ??-She is off oxygen and pulmonary function is improving with pulmonary rehabilitation PLAN: - Stop iron. - Repeat CT scan of chest in 6 months. - Follow-up with pulmonary medicine and pulmonary rehabilitation. - Flu vaccine also recommended AND she may also get the shingles vaccine. Discussed with PCP. - CBC, BMP stat OV in 6 months. Renee Koroma MD Cc: Dr. Sujatha Koroma MD 06/26/2018 3:10 PM Signed Stop iron AND get mammograms this year. Referring Provider: RENEE KOROMA [[id number]] Allergies As of Date: 06/26/2018 Noted Allergy Reaction CEPHALEXIN 08/19/2009 2 - Rash Date Reviewed: 06/26/2018 Reviewed by: Denton Ocasio - Fully Assessed Reason for Visit: Established Patient [175] Visit Diagnosis:Malignant neoplasm of unspecified part of unspecified bronchus or lung (HCC) [C34.90] Order(s):CT CHEST W IVCON [[id number]] Order #: [id number] FUTURE iv contrast (will be provided with radiology test)CT Chest W -Inject, intravenously, once for 1 dose.No IV access, insert saline lock prior to the beginning of sedation, infusion, injection of imaging exam. Discontinue saline lock post exam. If Pt. has a central line or IVAD, may access for administration according to line specific nursing protocol. Once exam is complete flush line and de- access according to line specific nursing protocol in the CT contrast administration guidelines link.Disp: 1 EachRfl: 0 Level of Service: EST PATIENT VISIT LEVEL 3 [[id number]] Follow-up and Disposition History Recorded Prescriptions as of 06/26/2018 Sig: METOPROLOL TARTRATE 50 MG TAB* Take 50 mg by mouth twice josafat* ALBUTEROL SULFATE HFA 90 MCG/* Inhale 2 Puffs as instructed * DOCUSATE SODIUM 100 MG CAPSULE Take 100 mg by mouth three ti* CALCIUM + VITAMIN D ORAL Take 1 tablet by mouth every * GUAIFENESIN ER 600 MG TABLET,* Take 1,200 mg by mouth twice * CHOLECALCIFEROL (VITAMIN D3) * Take 2,000 Units by mouth jacqueline* ASPIRIN 81 MG TABLET,DELAYED * Take 81 mg by mouth once fidencio* FUROSEMIDE 20 MG TABLET Take 1 tablet by mouth once d* ALBUTEROL SULFATE 2.5 MG/3 ML* Use 3 mL via nebulizer every * NEBULIZER ACCESSORIES KIT For use with administering al* ATORVASTATIN 80 MG TABLET Take 80 mg by mouth once fidencio* LEVOTHYROXINE 125 MCG CAPSULE Take 1 capsule by mouth once * ESCITALOPRAM 10 MG TABLET Take 1 tablet by mouth once d* IV CONTRAST (RADIOLOGY PROCED* CT Chest W -Inject, intraveno* Medication notes this encounter FUROSEMIDE 20 MG TABLET >> Denton Ocasio MA 06/26/2018 2:50 PM >> DENTON OCASIO MA SunJun 26, 2018 2:50 PM as necessary HYDROMORPHONE 4 MG TABLET >> Denotn Ocasio MA 06/26/2018 2:48 PM >> DENTON OCASIO MA SunJun 26, 2018 2:48 PM No longer taking. GABAPENTIN 400 MG CAPSULE >> Denton Ocasio MA 06/26/2018 2:48 PM >> DENTON OCASIO MA SunJun 26, 2018 2:48 PM No longer taking. FENTANYL 12 MCG/HR TRANSDERMAL PATCH >> Denton Ocasio MA 06/26/2018 2:48 PM >> SAMAN OCASIO MAI SunJun 26, 2018 2:48 PM No longer taking. OMEPRAZOLE 20 MG CAPSULE,DELAYED RELEASE >> Denton Ocasio MA 06/26/2018 2:50 PM >> KIARNKAYE SAMAN MCCULLOUGHI SunJun 26, 2018 2:50 PM No longer taking. POLYSACCHARIDE IRON COMPLEX 150 MG IRON CAPSULE >> Denton Ocasio MA 06/26/2018 2:50 PM >> DENTON OCASIO MA SunJun 26, 2018 2:50 PM Taking one capsule every other day. METOPROLOL TARTRATE 25 MG TABLET >> Denton Ocasio MA 06/26/2018 2:52 PM >> DENTON OCASIO MA Jun 26, 2018 2:52 PM No longer taking this strength. Problem List As Of Date 06/26/2018 Noted Resolved Family History of Malignant Neoplasm of Gastroi*INVALID FOR* Benign Neoplasm of Colon [D12.6] INVALID FOR* Diverticulosis of Colon (without Mention of Hem*INVALID FOR* Cancer of trachea, bronchus, and lung (HCC) [C3*INVALID FOR* Acute post-operative pain [G89.18] INVALID FOR* Priority: G More... Malignant neoplasm of upper lobe of left lung (*INVALID FOR* Priority: A More... Coronary artery disease involving little shell tribe villalobos*INVALID FOR* Priority: C More... Hypothyroidism [E03.9] INVALID FOR* Priority: K More... Atelectasis [J98.11] INVALID FOR* Priority: B More... Essential hypertension [I10] INVALID FOR* Priority: C More... Stress hyperglycemia [R73.9] INVALID FOR* Priority: E More... Emphysema lung (HCC) [J43.9] INVALID FOR* Priority: F More... Depression [F32.9] INVALID FOR* Priority: D More... Major depressive disorder, single episode [F32.*INVALID FOR* Mechanical venous thromboembolism (VTE) prophyl*INVALID FOR* Priority: L More... DISPOSITION AND FOLLOW-UP INVALID FOR* Priority: M More... Esophagitis [K20.9] INVALID FOR* Priority: E More... Malnutrition of mild degree (HCC) [E44.1] INVALID FOR* Priority: B More... Elevated serum creatinine [R79.89] INVALID FOR* Priority: E More... 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 Serum potassium elevated [E87.5] INVALID FOR* Priority: D More... 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 Hypoxia [R09.02] INVALID FOR* Priority: I More... 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 Encounter Status:Closed by RENEE KOROMA MD on 06/27/18 FIDEL ABS GR + CBC Collected: 06/21/2018 Status: F Source: [place] 1:15 PM [facility] REPOSITORY TYPE CODE TESTS RESULT OUT OF REFERENCE UNITS RANGE LAB WWBC 3.70-11.00 k/uL [place] WBC 9.48 LAB WRBC 3.90-5.20 m/uL [place] RBC 4.19 LAB WHGB 11.5-15.5 g/dL [place] Hemoglobin 12.7 LAB WHCT 36.0-46.0 % [place] Hematocrit 39.3 LAB WMCV 80.0-100.0 fL [place] MCV 93.8 LAB WMCH 26.0-34.0 pg [place] MCH 30.3 LAB WMCHC 30.5-36.0 g/dL [place] MCHC 32.3 LAB WRDW 11.5-15.0 % [place] RDW 13.2 LAB WPLT 150-400 k/uL [place] Platelet Cnt 247 LAB WMPV 9.0-12.7 fL Low [place] MPV 8.5 Result Comment: Test performed at: [facility], [address] [place] [address]. LAB ABGRAN 1.45-7.50 k/uL Absol Gran 7.03 Count COMP METABOLIC PANEL Collected: 06/21/2018 Status: F Source: [place] 1:15 PM [facility] REPOSITORY TYPE CODE TESTS RESULT OUT OF REFERENCE UNITS RANGE LAB TP 6.3-8.0 g/dL Protein, Total 7.0 LAB ALB 3.9-4.9 g/dL Albumin 4.0 LAB CA 8.5-10.2 mg/dL Calcium, Total 8.8 LAB TBIL 0.2-1.3 mg/dL Bilirubin, Total 0.6 LAB ALKP 32-117 U/L Alkaline High Phosphatase 154 LAB AST 13-35 U/L AST 28 LAB GLU 74-99 mg/dL Glucose 99 Result Comment: The [place] [employer] (ADA) provides guidance for cutoff values for fasting glucose and random glucose. The ADA defines fasting as no caloric intake for at least 8 hours. Fas ting plasma glucose results between 100 to 125 mg/dL indicate increased risk for diabetes (prediabetes). Fasting plasma glucose results greater than or equal to 126 mg/dL meet the criteria for diagnosis of diabetes. In the absence of unequivocal hyperglycemia, results should be confirmed by repeat testing. In a patient with classic symptoms of hyperglycemia or hyperglycemic crisis, random plasma glucose results greater than or equal to 200 mg/dL meet the criteria for diagnosis of diabetes. Reference: Standards of Medical Care in Diabetes 2016, [place] [employer]. Diabetes Care. 2016.39(Suppl 1). LAB BUN 7-21 mg/dL BUN 20 LAB CRET 0.58-0.96 mg/dL Creatinine High 1.21 LAB NA 136-144 mmol/L Sodium 141 LAB K 3.7-5.1 mmol/L Potassium 4.3 LAB CL 97-105 mmol/L Chloride 101 LAB CO2 22-30 mmol/L CO2 28 LAB AGAP 9-18 mmol/L Anion Gap 12 LAB ALT 7-38 U/L ALT 32 LAB GFRAA eGFR- Amer. 54 LAB GFRNAA . eGFR-All Other Races 45 Result Comment: eGFR (Estimated GFR) Units of measure: mL/min/1.73 meters squared eGFR is derived from the reexpressed MDRD Study equation using the following parameters: serum creatinine, age, gender and race. The creatinine assay has been calibrated to be traceable to IDMS. An eGFR <60 mL/min/1.73m2 for >3 months is consistent with chronic kidney disease. Refer to KDOQI guidelines for clinical interpretation. In patients with unstable renal function, e.g. those with acute kidney injury, the eGFR may not accurately reflect actual GFR. Performed By: #### CMP #### [facility] [address] [place], [place] [address] PROGRESS Observed: 06/21/2018 Status: COMPLETED Source: [place] 1:05 PM [facility] REPOSITORY O ID: [id number] Author: Patricia (Rt) Summer Felder Service: (none) Author Type: Executive Associate Type: Progress Notes Filed: 06/21/2018 1:05 PM Note Text: Radiology Service Progress Note PATIENT NAME: Marichuy Blankenship DATE OF SERVICE: June 21, 2018 TIME: 1:05 PM PATIENT IDENTITY VERIFICATION COMPLETED USING TWO (2) METHODS: Patient confirmed name verbally and Date of . PATIENT GENDER DATA: Female. status: : No status: NO. PATIENT RELEVANT IMPLANT DATA REVIEWED: Not Applicable RADIOLOGY DEPARTMENT: General X-ray: Exam(s) Completed: Chest X-Ray PERIPHERAL IV DATA: Not applicable SIGNED BY: RT Ree June 21, 2018 1:05 PM XR CHEST 2V FRONTAL/LAT Observed: 06/21/2018 Status: F Source: [place] 1:05 PM [facility] REPOSITORY * * *Final Report* * * DATE OF EXAM: Jun 21 2018 1:05PM WRX [id number] - XR CHEST 2V FRONTAL/LAT / PROCEDURE REASON: Malignant neoplasm of upper lobe, left bronchus or lung * * * * Physician Interpretation * * * * EXAMINATION: CHEST RADIOGRAPH (2 VIEW FRONTAL and LATERAL) CLINICAL HISTORY: Malignant neoplasm of upper lobe, left bronchus or lung MQ: XC2_5 Comparison: Comparison is made to prior chest dated [address] chest dated 21 December 2017 RESULT: Lines, tubes, and devices: None. Lungs and pleura: Chronic interstitial lung changes as well as postsurgical changes of the left lung again identified. There is progressive airspace consolidation of the left lung apex. Mediastinal shift to the left is unchanged. No superimposed new airspace process or overt pulmonary edema Cardiomediastinal silhouette: Unchanged cardiomediastinal silhouette. Other: The bony structures are intact IMPRESSION: Postsurgical changes left lung apex with increased confluent at the ninth of the left lung apex which could represent increased atelectasis and fibrosis. Social Media Specialist: MARTIN Transcribe Date/Time: Jun 21 2018 1:28P Dictated by : TYREL HAMMONDS MD This examination was interpreted and the report reviewed and electronically signed by: TYREL HAMMONDS MD on Jun 21 2018 1:32PM EST [id number] [place] - INDIVIDUAL Observed: 06/12/2018 Status: F Source: [place] [facility] 5:39 PM [facility] REPOSITORY [facility] Pulmonary [place] [address] [place] - Individual Treatment Plan MR#: [id number] Acct: [id number] Name: MARICHUY BLANKENSHIP Rep #: [id number] : 1950 68 From: Santos Medrano WELDER EXPLOSION, HISTOLOGIC TECHNICIAN, BS PCP: Marianela MIRZA,Sandie Exercise - 90-Day Assessment - Exercise Prescription Mode:: Treadmill, NuStep, Arm Ergometer Frequency (x/week): 3 Duration:: 35 Aerobic Exercise [30-60 min 3-7x/week]:: Progressing Target heart rate: 116-123 Benito-13 MET Level:: 5 - Home Exercise Home Exercise?: Yes Time (minutes):: 30 - walking Disease Management - 90-Day - Medications Taking medications 100% of the time:: Met Medication reassessment: Yes Pt demonstrates correct technique timing for MDI, Yes Pt demonstrates correct technique timing for DPI, Yes Pt demonstrates correct technique timing for NEB, Yes Pt demonstrates correct technique timing for spacer - returned use of acapella - Bronchial Hygiene Bronchial Hygiene Plan: Yes Pt demo correct for device - return use of acapella Psychosocial - 90-Day - Assessment Depression reassess: Management of stress: Progressing, Management of depression: Progressing, Practicing interventions: Progressing Tobacco - 90-Day Assessment - Program Goals Tobacco Program Goals: Complete smoking cessation. Attend education classes. Improve Knowledge Test score - Stage of Change Stages of Change:: Action - Learning Barriers Learning Barriers: Participates in education - Family Support Do you have family support?: Yes - Tobacco Use Tobacco Use: Non-smoker Do you use smokeless tobacco?: No - Intervention Education Schedule Given:: Yes - Education Gave Education Materials For:: Pulmonary Disease, Risk Factors, Breathing Techniques, Medical Compliance, Pulmonary A AND P, Exacerbation Signs AND Symptoms, Stress AND Relaxation Nutrition/Wt Mgmt - 90-Day - Weight Management Weight Assessment:: Wt loss 1-2 lbs per week Weight:: 192 lb Weight Goals Progress:: Progressing Patient Health Questionnaire 90-Day Re-eval Assessment 1. Little interest or pleasure in doing things: Not at all 2. Feeling down, depressed, or hopeless: Not at all 3. Trouble falling or staying asleep, or sleeping too much: Not at all 4. Feeling tired or having little energy: Not at all 5. Poor appetite or overeating: Not at all 6. Feeling bad about yourself -- or that you are a failure or have let yourself or your family down: Not at all 7. Trouble concentrating on things, such as reading the newspaper or watching television: Not at all 8. Moving or speaking so slowly that other people could have noticed. Or the opposite - being so fidgety or restless that you have been moving around a lot more than usual: Not at all 9. Thoughts that you would be better off , or of hurting yourself in some way: Not at all How difficult have these problems made it for you to do your work, take care of things at home, or get along with other people?: Not difficult at all Total Score: 0 COPD Assessment Test [CAT] - Questions Never cough = 0, Cough all the time = 5: 2 No phlegm = 0, Chest full of phlegm = 5: 2 No chest tightness = 0, Chest very tight = 5: 2 No breathless w/exertion = 0, Very breathless w/exertion = 5: 3 No limitations w/activity = 0, Very limited w/activity = 5: 2 Confident leaving home = 0, Not at all confident = 5: 0 Sleep soundly = 0, Don't sleep soundly = 5: 0 Lots of energy = 0, No energy at all = 5: 2 Total CAT score:: 13 Self-Efficacy 90-Day Re-eval Assessment We would like to know how confident you are in doing certain activities. Please select your confidence level for:: Select your confidence level for the following using the scale 1-10 where 1 is not at all confident and 10 is totally confident. Your score is the average of all 6 responses. Fatigue: How confident are you that you can keep the fatigue caused by your disease from interfering with the things you want to do? Select Number: 9 Physical Discomfort or Pain: How confident are you that you can keep the physical discomfort or pain of your disease from interfering with the things you want to do? Select Number: 10 Emotional Distress: How confident are you that you can keep the emotional distress caused by your disease from interfering with the things you want to do? Select Number: 10 Other Symptoms or Health Problems: How confident are you that you can keep other symptoms or health problems from interfering with the things you want to do? Select Number: 10 Different Tasks and Activities: How confident are you that you can do the different tasks and activities needed to manage your health condition so as to reduce your need to see a doctor? Select Number: 10 Medication: How confident are you that you can do things other than just taking medication to reduce how much your illness affects your everyday life? Select Number: 10 Total Score:: 9 06/07/18 1014 <Electronically signed by Santos Medrano CRT, RCP, BS> Date Santos Medrano CRT, RCP, BS Outcome assessment reviewed. Exercise plan approved as documented. Treatment plan and goals support patient needs/abilities. Continue with current plan. I certify the patient demonstrates improvement and remains willing and capable of participation. the patient continues to benefit from pulmonary services/training. The patient may continue at current intensity, endurance and modality and progress per protocol. 06/12/18 7819<Electronically signed by Junaid Odell MD> Cosigner Signature: Date Junaid Odell MD CC: Signed [place] - INDIVIDUAL Observed: 06/04/2018 Status: F Source: [facility] 1:46 PM [facility] REPOSITORY [facility] Pulmonary Rehab Reports [address] [place] [address] [place] - Individual Treatment Plan MR#: [id number] Acct: [id number] Name: MARICHUY BLANKENSHIP Rep #: [id number] : 1950 68 From: Santos Medrano CRT, RCP, EMMA PCP: Marianela MIRZA,Sandie Crowder Information - Education/Goals Patient Goals: Breathe better: 60-Day Assessment - Progressing, Increase endurance/stamina: 60-Day Assessment - Participating in more activities., Return to recreation/hobby: 60-Day Assessment - More social., Symptom management: 60-Day Assessment - able to decrease portable oxygen use. Exercise - 60-Day Assessment - Current Level Mode:: Treadmill, NuStep, Arm Ergometer Frequency (x/week): 3 Duration:: 30 Aerobic Exercise [30-60 min 3-7x/week]:: Progressing Target heart rate: 116-123 Benito-12 MET Level:: 4.5 - No oxygen use w/exercise. - Home Exercise Home Exercise:: Yes Frequency:: walking Time (minutes):: 30 Disease Management - 60-Day - Hypoxemia Reassessment: Demonstrates knowledge of O2 Rx at rest, Demonstrates knowledge of O2 Rx with exercise, Using O2 as prescribed, Has home O2 as prescribed - Medications Medication list reviewed:: Yes Taking medications 100% of the time:: Met Medication reassessment: Yes Pt demonstrates correct technique timing for MDI, Yes Pt demonstrates correct technique timing for DPI, Yes Pt demonstrates correct technique timing for NEB, Yes Pt demonstrates correct technique timing for spacer - Returned demonstration use of spacer device - Bronchial Hygiene Bronchial Hygiene Plan: Yes Pt demo correct for device - Returned demonstration use of SMI and IMT devices, Yes Pt demo correct for improved hydration, Yes Pt demo correct for hand hygiene, Yes Pt demo correct for verbalize when to call MD Psychosocial - 60-Day - Assessment Depression reassess: Management of stress: Met, Management of depression: Met, Practicing interventions: Met Tobacco - 60-Day Assessment - Program Goals Tobacco Program Goals: Complete smoking cessation. Attend education classes. Improve Knowledge Test score - Stage of Change Stages of Change:: Action - Learning Barriers Learning Barriers: Participates in education - Family Support Do you have family support?: Yes - Tobacco Use Tobacco Use: Non-smoker - Intervention Education Schedule Given:: Yes - Education Gave Education Materials For:: Pulmonary Disease, Risk Factors, Breathing Techniques, Medical Compliance, Pulmonary A AND P, Exacerbation Signs AND Symptoms, Stress AND Relaxation Nutrition/Wt Mgmt - 60-Day - Weight Management Weight Assessment:: Wt loss 1-2 lbs per week, Wt stable Weight:: 190 lb - BMI 31 Weight Goals Progress:: Referral to structured weight management program - Encouraged patient to use practices to reduce weight, Patient Health Questionnaire 60-Day Re-eval Assessment 1. Little interest or pleasure in doing things: Not at all 2. Feeling down, depressed, or hopeless: Not at all 3. Trouble falling or staying asleep, or sleeping too much: Not at all 4. Feeling tired or having little energy: Not at all 5. Poor appetite or overeating: Several days 6. Feeling bad about yourself -- or that you are a failure or have let yourself or your family down: Not at all 7. Trouble concentrating on things, such as reading the newspaper or watching television: Not at all 8. Moving or speaking so slowly that other people could have noticed. Or the opposite - being so fidgety or restless that you have been moving around a lot more than usual: Not at all 9. Thoughts that you would be better off , or of hurting yourself in some way: Not at all How difficult have these problems made it for you to do your work, take care of things at home, or get along with other people?: Not difficult at all Total Score: 1 COPD Assessment Test [CAT] - Questions Never cough = 0, Cough all the time = 5: 2 No phlegm = 0, Chest full of phlegm = 5: 2 No chest tightness = 0, Chest very tight = 5: 2 No breathless w/exertion = 0, Very breathless w/exertion = 5: 3 No limitations w/activity = 0, Very limited w/activity = 5: 2 Confident leaving home = 0, Not at all confident = 5: 0 Sleep soundly = 0, Don't sleep soundly = 5: 0 Lots of energy = 0, No energy at all = 5: 2 Total CAT score:: 13 Self-Efficacy 60-Day Re-eval Assessment We would like to know how confident you are in doing certain activities. Please select your confidence level for:: Select your confidence level for the following using the scale 1-10 where 1 is not at all confident and 10 is totally confident. Your score is the average of all 6 responses. Fatigue: How confident are you that you can keep the fatigue caused by your disease from interfering with the things you want to do? Select Number: 7 Physical Discomfort or Pain: How confident are you that you can keep the physical discomfort or pain of your disease from interfering with the things you want to do? Select Number: 9 Emotional Distress: How confident are you that you can keep the emotional distress caused by your disease from interfering with the things you want to do? Select Number: 9 Other Symptoms or Health Problems: How confident are you that you can keep other symptoms or health problems from interfering with the things you want to do? Select Number: 9 Different Tasks and Activities: How confident are you that you can do the different tasks and activities needed to manage your health condition so as to reduce your need to see a doctor? Select Number: 10 Medication: How confident are you that you can do things other than just taking medication to reduce how much your illness affects your everyday life? Select Number: 10 Total Score:: 9 05/07/18 0841 <Electronically signed by Santos Medrano CRT, RCP, BS> Date Santos Medrano CRT, RCP, EMMA Outcome assessment reviewed. Exercise plan approved as documented. Treatment plan and goals support patient needs/abilities. Continue with current plan. I certify the patient demonstrates improvement and remains willing and capable of participation. the patient continues to benefit from pulmonary services/training. The patient may continue at current intensity, endurance and modality and progress per protocol. 06/04/18 1346<Electronically signed by Junaid Odell MD> Cosigner Signature: Date Junaid Odell MD CC: Signed CBC-COMPLETE BLOOD CNT Collected: 04/16/2018 Status: F Source: [place] NO DIFF 9:45 AM [facility] REPOSITORY Order Comment: Order Date: 01/03/18 Order Info: [id number] - CBC TYPE CODE TESTS RESULT OUT OF RANGE REFERENCE UNITS LAB L100.1000 4.4-11.0 K/mm3 Normal WBC 6.0 LAB L100.1200 4.2-5.4 M/mm3 Normal RBC 4.21 LAB L100.1300 12.0-15.0 g/dl Normal HGB 12.5 LAB L100.1400 37-47 % Normal HCT 39.0 LAB L100.1500 81-99 fL Normal MCV 92.6 LAB L100.1600 27.0-32.0 pg Normal MCH 29.7 LAB L100.1700 32-36 g/gl Normal MCHC 32.1 LAB L100.1810 11.6-14.6 % Normal RDW CV 13.5 LAB L100.1820 35.1-43.9 fl High RDW SD 45.2 LAB L100.1900 150-450 K/mm3 Normal PLT 245 LAB L100.2000 6.2-12.0 fl Normal MPV 9.0 Performed By: #### L100.0500, L500.2500 #### [facility] [address] [place], [place], [address] BASIC METABOLIC Collected: 04/16/2018 Status: F Source: [place] PROFILE (BMP) 9:45 AM [facility] REPOSITORY Order Comment: Order Date: 01/03/18 Order Info: [id number] - BMP Order Date: 04/16/18 Order Info: [id number] - LIPID Order Info: [id number] - TSH TYPE CODE TESTS RESULT OUT OF RANGE REFERENCE UNITS LAB L501.0100 74-106 mg/dL High GLU 126 Result Comment: Fasting Glucose result greater than or equal to 126 mg/dL suggests DIABETES MELLITUS per A.D.A. criteria. Please note revised GLUCOSE reference range effective 2017. LAB L501.1000 7-18 mg/dL High BUN 27 LAB L501.1100 0.55-1.02 mg/dL High CREAT,SERUM 1.18 Result Comment: The validity of the calculated GFR AND GFRAA in patients over 70 years has not been determined. Clinical correlation is essential. LAB L501.1110 >60 mL/min Low EST GFR 49 Result Comment: Non- GFR Calc LAB L501.1115 >60 mL/min Low EST GFR - AA 59 Result Comment: GFR Calc LAB L501.1300 10-20 RATIO High BUN/CRE 22.9 LAB L501.2200 8.5-10.1 mg/dL CA Normal 8.9 LAB L501.5300 136-145 mmol/L NA Normal 140 LAB L501.5600 3.5-5.1 mmol/L K Normal 4.2 LAB L501.5900 98-107 mmol/L CL Normal 107 LAB L501.6100 21.0-32.0 mmol/L Normal CO2 25.0 LAB L501.6200 5-15 Normal GAP 8 Performed By: #### L100.0500, L500.2500 #### [facility] [address] [place], [address] LIPID PROFILE Collected: 04/16/2018 Status: F Source: [place]EL 9:45 AM [facility] REPOSITORY Order Comment: Order Date: 01/03/18 Order Info: [id number] - BMP Order Date: 04/16/18 Order Info: [id number] - LIPID Order Info: [id number] - TSH TYPE CODE TESTS RESULT OUT OF RANGE REFERENCE UNITS LAB L501.4900 200 mg/dL Normal CHOL 135 Result Comment: <200 mg/dL Desirable 200-240 mg/dL Borderline >240 mg/dL High Risk LAB L501.5000 mg/dL Normal TRIG 121 Result Comment: The drugs N-Acetylcysteine and Metamizole may falsely depress this assay. Serum Triglycerides Reference Interval Normal <150 mg/dL Borderline high 150 - 199 mg/dL High 200 - 499 mg/dL Very High > or = 500 mg/dL LAB L501.6400 mg/dL Normal HDL 42 Result Comment: The drugs N-Acetylcysteine and Metamizole may falsely depress this assay. Reference Range HDL <40 mg/dL Low HDL Cholesterol HDL >or= 60 mg/dL High HDL Cholesterol LAB L501.6500 0-130 mg/dL Normal LDL 69 LAB L501.6600 5-40 mg/dL Normal VLDL 24 Performed By: #### L500.4100, L501.9520 #### [facility] [address] [place], [address] THYROID STIM HORMONE Collected: 04/16/2018 Status: F Source: FIDEL (TSH) 9:45 AM [facility] REPOSITORY Order Comment: Order Date: 01/03/18 Order Info: [id number] - BMP Order Date: 04/16/18 Order Info: [id number] - LIPID Order Info: [id number] - TSH TYPE CODE TESTS RESULT OUT OF RANGE REFERENCE UNITS LAB L501.9520 0.358-3.74 uIU/mL Low TSH 0.05 Performed By: #### L500.4100, L501.9520 #### [facility] [address] [place], [address] [place] - INDIVIDUAL Observed: 04/08/2018 Status: F Source: [place] [facility]REATMENT [facility] 6:59 PM [facility] REPOSITORY [facility] Pulmonary Rehab Reports [address] [place] [address] [place] - Individual Treatment Plan MR#: [id number] Acct: [id number] Name: MARICHUY BLANKENSHIP Rep #: [id number] : 1950 68 From: Santos Medrano WELDER EXPLOSION, HISTOLOGIC TECHNICIAN, BS PCP: Sandie Bear MD Exercise - 30-Day Assessment - Exercise Prescription Mode:: Treadmill, Airdyne, NuStep, Arm Ergometer Frequency (x/week): 3 - only had 5 sessions Duration:: 30 Aerobic Exercise [30-60 min 3-7x/week]:: Progressing Target heart rate: 106-115 Benito-12 MET Level:: 2.6 - Home Exercise Home Exercise:: No Disease Management - 30-Day - Hypoxemia Reassessment: Demonstrates knowledge of O2 Rx at rest, Demonstrates knowledge of O2 Rx with exercise, Using O2 as prescribed, Has home O2 as prescribed, Uses port O2 as prescribed - Medications Medication list reviewed:: Yes Taking medications 100% of the time:: Approximately 75% of the time Psychosocial - 30-Day - Assessment Reassessment: COPD assessment w/ CAT, Geriatric depression screening, Self efficacy score Nutrition/Wt Mgmt - 30-Day - Weight Management Weight:: 187 lb Patient Health Questionnaire 30-Day Re-eval Assessment 1. Little interest or pleasure in doing things: Several days 2. Feeling down, depressed, or hopeless: Not at all 3. Trouble falling or staying asleep, or sleeping too much: Not at all 4. Feeling tired or having little energy: Several days 5. Poor appetite or overeating: Several days 6. Feeling bad about yourself -- or that you are a failure or have let yourself or your family down: Not at all 7. Trouble concentrating on things, such as reading the newspaper or watching television: Not at all 8. Moving or speaking so slowly that other people could have noticed. Or the opposite - being so fidgety or restless that you have been moving around a lot more than usual: Not at all 9. Thoughts that you would be better off , or of hurting yourself in some way: Not at all How difficult have these problems made it for you to do your work, take care of things at home, or get along with other people?: Not difficult at all Total Score: 3 COPD Assessment Test [CAT] - Questions Never cough = 0, Cough all the time = 5: 2 No phlegm = 0, Chest full of phlegm = 5: 2 No chest tightness = 0, Chest very tight = 5: 2 No breathless w/exertion = 0, Very breathless w/exertion = 5: 4 No limitations w/activity = 0, Very limited w/activity = 5: 3 Confident leaving home = 0, Not at all confident = 5: 0 Sleep soundly = 0, Don't sleep soundly = 5: 0 Lots of energy = 0, No energy at all = 5: 3 Total CAT score:: 16 Self-Efficacy 30-Day Re-eval Assessment We would like to know how confident you are in doing certain activities. Please select your confidence level for:: Select your confidence level for the following using the scale 1-10 where 1 is not at all confident and 10 is totally confident. Your score is the average of all 6 responses. Fatigue: How confident are you that you can keep the fatigue caused by your disease from interfering with the things you want to do? Select Number: 6 Physical Discomfort or Pain: How confident are you that you can keep the physical discomfort or pain of your disease from interfering with the things you want to do? Select Number: 8 Emotional Distress: How confident are you that you can keep the emotional distress caused by your disease from interfering with the things you want to do? Select Number: 8 Other Symptoms or Health Problems: How confident are you that you can keep other symptoms or health problems from interfering with the things you want to do? Select Number: 8 Different Tasks and Activities: How confident are you that you can do the different tasks and activities needed to manage your health condition so as to reduce your need to see a doctor? Select Number: 9 Medication: How confident are you that you can do things other than just taking medication to reduce how much your illness affects your everyday life? Select Number: 10 Total Score:: 8 04/05/18 1135 <Electronically signed by Santos Medrano CRT, RCP, BS> Date Santos Medrano CRT, RCP, BS Outcome assessment reviewed. Exercise plan approved as documented. Treatment plan and goals support patient needs/abilities. Continue with current plan. I certify the patient demonstrates improvement and remains willing and capable of participation. the patient continues to benefit from pulmonary services/training. The patient may continue at current intensity, endurance and modality and progress per protocol. 04/08/18 427<Electronically signed by Sumeet Velazquez MD> Cosigner Signature: Date Sumeet Velazquez MD CC: Signed [place] - HISTORY AND Observed: 03/25/2018 Status: F Source: [facility] 7:03 PM [facility] REPOSITORY [facility] Pulmonary Rehab Reports [address] [place] [address] [place] - History AND Physical MR#: [id number] Acct: [id number] Name: MARICHUY BLANKENSHIP Rep #: [id number] : 1950 68 From: Santos Medrano CRT, RCP, BS PCP: Sandie Bear MD History of Present Illness Arrival date:: 03/25/18 Arrival time:: 12:59 Date of Referral:: 02/25/18 Date of Evaluation: 03/25/18 Referring Physician: SANDIE BEAR Primary Diagnosis: COPD History of Present Illness: Gold classification STage III SEvere COPD. mMRC Breathless Scale: When is the patient short of breath? Y/N Grade: Description of Breathlessness: Home Medications: Home Medications Aspirin [Aspirin, Baby] 81 mg PO DAILY@0800 02/18/16 Atorvastatin Calcium [Lipitor] 80 mg PO QHS 02/18/16 Escitalopram Oxalate [Lexapro] 10 mg PO QHS 02/18/16 Levothyroxine [Synthroid] 125 mcg PO DAILY 02/18/16 Albuterol Aerosols [Ventolin Aerosols] 2.5 mg INHALATION Q4HWA.RT 09/03/17 Albuterol Inhaler [Ventolin Hfa] 2 puff INHALATION 4X/DAY PRN 09/03/17 Cholecalciferol (Vitamin D3) [Vitamin D3] 5,000 unit PO DAILY 09/03/17 Docusate Calcium [Stool Softener] 240 mg PO TID 09/03/17 Fentanyl 25 mcg TOPICAL Q3D 09/03/17 Furosemide [Lasix] 20 mg PO DAILY 09/03/17 Gabapentin [Neurontin] 400 mg PO QHS 09/03/17 HYDROmorphone tablet [Dilaudid] 4 mg PO Q3H PRN PRN 09/03/17 Iron Polysaccharide Complex [Ferrex 150] 150 mg PO BID 09/03/17 Omeprazole 20 mg PO DAILY 09/03/17 Metoprolol Tartrate [Lopressor (beta swati)] 50 mg PO BID #60 tablet 09/06/17 levoFLOXacin tablet [Levaquin] 500 mg PO DAILY #5 tablet 09/06/17 Allergies/Adverse Reactions: Allergies cephalexin Allergy (Verified 09/03/17 17:02) Rash - Secretions Normal Color:: light pale green Thin:: Yes Cough:: No A.T.C.: Yes Hx of Sleep Apnea: No Do you snore loudly (louder than talking or can be heard through closed doors)?: Yes Do you often feel tired/ fatigued/ sleepy during daytime?: No Has anyone observed you stop breathing during sleep?: No History of Hypertension (for STOP score): Yes STOP Results: Positive Medical Utilization Do you use a peak flow meter at home?: No Do you use a spacer device with your inhalers?: Yes Number of hospital visits in the last year?: 2 - surgery July/August Do you see your physician on a regular schedule?: Yes How often?: recently every month, now back to 2 months Advanced Directives - Advanced Directives Power of Software Program Manager: No Living Will: No Advance Directives Information Provided: Yes Advance Directives on File: No DNR Order?:: No - MOLST See MOLST form: No Past Medical History Medical History: Past Medical History (Last Updated 03/25/18 @ 13:09 by Santos Medrano CRT, HISTOLOGIC TECHNICIAN, BS) Anxiety F41.9 Coronary artery disease I25.10 Depression F32.9 History of coronary artery stent placement Z95.5 Hypercholesterolemia E78.00 Hypothyroidism E03.9 Lung cancer C34.90 Lung nodules R91.8 neck surgery disection/fusion Hypertension I10 Surgical History: Past Surgical History (Last Updated 03/25/18 @ 13:08 by Santos Medrano CRT, HISTOLOGIC TECHNICIAN, BS) H/O: hysterectomy Z90.710 History of bladder suspension procedure Z98.890, Z87.448 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 Status post lobectomy of lung Z90.2 Family History: Family History (Last Updated 03/25/18 @ 13:10 by Santos Medrano CRT, HISTOLOGIC TECHNICIAN, BS) Other father cancer; mother coronary occlusion - Current/ Previous Services Pulmonary Rehab:: No Social History - Smoking History Smoking Status: Former smoker Years Smokin Packs Smoked per Day: 1 Hx Smoking Cessation Date: 2014 Hx Tobacco Use: Yes Hx Smoking Exposure: No - Alcohol Use Alcohol Usage: No - Substance Abuse Hx Substance Use: No - Occupation Occupation (List type of work in comments):: Retired - Hobbies, Recreation, Social Activities Hobbies: Walking, Other - crafts, bowling, family and grandchildren Recreational Activities: I am able to engage in a few activities Functioning ADL/IADL - Current Ability Current Ability: Independent Self-Care (e.g.,grooming, dressing, AND bathing), Independent Ambulation, Independent Transfer, Independent Household tasks (e.g., light meal prep, laundry, shopping) - Pt Functioning Prior to Problem Prior Functioning: Self-Care (e.g.,grooming, dressing, AND bathing): Independent, Ambulation: Independent, Transfer: Independent, Household tasks (e.g., light meal prep, laundry, shopping): Independent Social Environment - Status Marital Status: - Current Living Arrangements Living Environment:: Spouse - Children How many children do you have?: 2 - 5 grandchildren Do any of your children live nearby?: Yes - Safety Do you feel safe in your surroundings?: Yes - Assistance Do you need any assistance at home?: none Review of Systems Review of Systems: Right click = Denies ([place]ash). Left click = Reports ([place]) Respiratory: Reports: SOB upon Exertion, Appetite, Normal, Fatigue, Sleep, Normal. Denies: Cough, SOB at Rest, Sputum production, Wheezing, Dizziness/Lightheadedness Is Patient Pain Free?: No Pain Location: none Pain Level: 0/10 Risk Factor Assessment - Chief Complaint Chief Complaint: Patient presents to pulmonary rehabilitation program today under the care of her primary physician Dr. Bear and her sampler pickup Dr. Jay. - Vital Signs Temperature: 98.7 F Pulse Rate: 64 Respiratory Rate: 16 Pulse Ox: 98 - 2 liters Blood Pressure: 110/68 Nailbeds:: pink - Diabetes Nutrition Referral for Diabetes: No - Obesity Height: 5 ft 5 in Weight:: 187 lb Weight in Pounds: 187.0 lbs Weight Source: Standing Scale Body Mass Index (BMI): 31.1 Nutritional Referral for Obesity: No - Physical Activity Physical Inactivity: Recreational activity - weeding flower gardens, planting, gardening - Risk Stratification Risk Guidelines: Lowest Risk: Risk Factor for Smoking, Risk Factor for Dyslipidemia, Risk Factor for Diabetes, Risk Factor for Hypertension, Risk Factor for Depression, Highest Risk: Risk Factor for Obesity, Risk Factor for Sedentary Lifestyle - For Smoking Smoking Risk Guidelines: Smoking Low Risk: None or quit greater than 6 months ago. Smoking Moderate Risk: Smoker or quit 6 months or less ago. Smoking High Risk: Smoker - For Dyslipidemia Dyslipidemia Risk Guidelines: Low Risk: Moderate Risk: High Risk: 15-25% fat 25.1-29% fat >/= 30% fat. <7% sat fat 7-9% sat fat >9% sat fat. <150 mg chol 150-299 mg chol >/= 300 mg chol. LDL <100 LDL 100-129 LDL >/= 130. Chol/HDL ratio <5.0 Chol/HDL ratio 5.0-6.0 Chol/HDL ratio >6.0. Triglycerides <100 Triglycerides 100-149 Triglycerides >/= 150 - For Diabetes Mellitus Diabetes Risk Guidelines: Diabetes Low Risk: HgA1c <6.5% and/or FBG <120. Diabetes Moderate Risk: HgA1c 6.6-7.9% and/or FBG 120- 180. Diabetes High Risk: HgA1c >/= 8% and/or FBG >180 - For Obesity/Overweight Obesity/Overweight Risk Guidelines: Obesity Low Risk: BMI <25.0. Obesity Moderate Risk: BMI 25-29.9. Obesity High Risk: BMI >/= 30.0 - For Hypertension Hypertension Risk Guidelines: Hypertension Low Risk: Systolic <120 and Diastolic <80. Hypertension Moderate Risk: Systolic 120-139 and Diastolic 80-89. Hypertension High Risk: Systolic >/= 140 and Diastolic >/= 90 - For Sedentary Lifestyle Sedentary Lifestyle Risk Guidelines: Sedentary Lifestyle Low Risk: >/= 1,500 kcal/week. Sedentary Lifestyle Moderate Risk: 700-1,499 kcal/week. Sedentary Lifestyle High Risk: < 700 kcal/week - For Depression Depression Risk Guidelines: Depression Low Risk: Not clinically depressed. Depression Moderate Risk: Mildly depressed. Depression High Risk: Clinically depressed Motivation - Motivation to Participate On a scale of 1 to 10, how prepared are you to commit to attending program?: 10 What do you see as barriers to successfully being able to complete the program?: none What do you see as the benefits of succesfully completing the program? In other words, what do you hope to get out of participating in the program?: hopefully be alot stronger; more active, more independent Are there issues you are dealing with that will interfere with completing the program?: none Do you have a spouse or signficant other, family or friends who will help support you to complete the program?: yes; daughter is a nurse and has helped tremendously. Diagnostic Data Review - 6 Minute Walk Test 6 Minute Walk Test: see EHR - Pulmonary Function Test FEV1:: 1.87 FVC:: 2.61 FEV1/FVC%:: 72 Gold Classification: GOLD class III(severe COPD)with FEV1/FVC<70, 30%</=FEV1< 50% predicted 03/25/18 1320 <Electronically signed by Santos Medrano CRT, RCP, BS> Date Santos Medrano CRT, RCP, BS Outcome assessment reviewed. Exercise plan approved as documented. Treatment plan and goals support patient needs/abilities. Continue with current plan. I certify the patient demonstrates improvement and remains willing and capable of participation. the patient continues to benefit from pulmonary services/training. The patient may continue at current intensity, endurance and modality and progress per protocol. 03/25/18 190<Electronically signed by Sumeet Velazquez MD> Jodi Signature: Date Sumeet Velazquez MD CC: Signed [place] - INDIVIDUAL Observed: 03/25/2018 Status: F Source: [facility] 7:03 PM [facility] REPOSITORY [facility] Pulmonary Rehab Reports [address] [place] [address] [place] - Individual Treatment Plan MR#: [id number] Acct: [id number] Name: MARICHUY BLANKENSHIP Rep #: [id number] : 1950 68 From: Santos Medrano WELDER EXPLOSION, HISTOLOGIC TECHNICIAN, BS PCP: Sandie Bear MD General Information - General Information Admitting Diagnosis: COPD, stage III Severe Gold Classification:: GOLD 3: Severe Oxygen: 2 - PFT FEV1:: 1.87 FVC:: 2.61 FEV1/FVC%:: 72 - Education/Goals Barriers to Learning: None, Vision Impairment - wears reading glasses Individual Counseling: Initial Assessment: Dyspnea control techniques at rest, activity, and ADLs, Exacerbation prevention AND management, O2, Rx, system, safety, Nutrition AND weight management, Home exercise plan AND guidelines, Advanced directives Patient Goals: Breathe better: Initial Assessment, Increase endurance/stamina: Initial Assessment, Return to recreation/hobby: Initial Assessment, Improve weight: Initial Assessment Exercise - Initial Assessment - Visit Date of Eval: 03/25/18 - established ITP; start [place] - Problem/Goals Problems: Deconditioning, No regular exercise, Knowledge deficit exercise guidelines, Knowledge deficit exercise safety - Exercise Prescription Mode:: Treadmill, Airdyne, NuStep, Arm Ergometer Frequency (x/week): 3 Duration:: 30 MET LEVEL:: 2 HR (bpm):: 115 - 106-115 Exercise Progression: as tolerated - Plan Plan and Plan to Review:: Benefits of exercise, Core components of exercise, How to measure dyspnea level, How to monitor dyspnea level, Exercise intensity, Exercise safety guideline, Home exercise guidelines, Benito: 3-4/11-13 Disease Management - Initial - Problems/Goals-Hypoxemia Hypoxemia Goals:: Hypoxemia managed, Using O2 as Rx's safely - Problems/Goals-Medications Medication Goals: Adherence to prescribed medications, Correct technique/timing AND care of MDI, DPI, nebulizer, and spacer. - Problems/Goals-Bronchial Hygiene Bronchial Hygiene Problems:: Ineffective secretion clearance, Respiratory infection Prevention/Management Bronchial Hygiene Goals:: Pt demonstrates effective cough, effective secretion clearance., Pt describes signs and symptoms of infection. - Initial Assessment SpO2:: 98 Port O2:: 2 Does pt report taking home meds as prescribed?: Yes Medications: Yes MDI, Yes NEB, No Spacer - doesnt use regularly Patient Reports:: No cough - Plans Hypoxemia Plan:: Monitor SpO2 rest AND with exercise, Train appropriate O2 use at rest, Train appropriate O2 use with exercise, Train O2 safety AND systems Reviewed prescribed medications:: Purpose, Schedule, Side effects, Importance of compliance Instruct correct technique/timing AND care:: MDI, Nebulizer Bronchial Hygiene Plan: Controlled cough, Vibratory PEP device, Hydration, Hand hygiene, Signs/symptoms to report:, Influenza/Pneumovax vaccines Psychosocial - Initial Assess - Problems/Goals Problems: Depression, Anxiety, Impaired Q.O.L. Psychosocial Goals: Improved psychosocial coping skills., Improved Q.O.L. - Psychosocial Test Depression:: Anxiety, Impaired QOL - Plan Instructions given regarding:: Benefits of exercise, Relaxation techniques, Training in coping strategies Stress management: On meds currently Tobacco - Initial Assessment - Program Goals Tobacco Program Goals: Complete smoking cessation. Attend education classes. Improve Knowledge Test score - Stage of Change Stages of Change:: Action - Learning Barriers Learning Barriers: Vision - wears reading glasses, Ready to Learn - Tobacco Use Tobacco Use: Non-smoker How long ago did you quit using tobacco products?: Greater than or equal to 6 months ago Years Smokin Do you use smokeless tobacco?: No - Intervention Smoking Cessation Referral:: No Individual Education/Counseling:: No Education Schedule Given:: Yes - Education Gave Education Materials For:: Tobacco Triggers, Pulmonary Disease, Risk Factors, Breathing Techniques, Medical Compliance, Pulmonary A AND P, Exacerbation Signs AND Symptoms, Stress AND Relaxation Nutrition/Wt Mgmt - Initial - Problems/Goals Problems: Overweight Goals: Wt Loss 1-2 lbs per week, Waist circumference - Weight Management Knowledge Deficit Management of:: Overweight Admit Height:: 5 ft 5 in Admit Weight:: 187 lb Admit BMI:: 31.1 - Diabetes Diabetes:: No Insulin: No Do you monitor your blood sugar at home?: No - Intervention Referral to dietitian:: No Referral to Diabetic Clinic:: No Will attend diet classes:: Yes - Plan Nutrition Plan: Yes Review BMI or WC AND identify target wt AND strategies for wt control, Yes Nutrition education class:, Yes Weight control education class: Patient Health Questionnaire Initial Assessment 1. Little interest or pleasure in doing things: Several days 2. Feeling down, depressed, or hopeless: Not at all 3. Trouble falling or staying asleep, or sleeping too much: Not at all 4. Feeling tired or having little energy: Several days 5. Poor appetite or overeating: Several days 6. Feeling bad about yourself -- or that you are a failure or have let yourself or your family down: Not at all 7. Trouble concentrating on things, such as reading the newspaper or watching television: Not at all 8. Moving or speaking so slowly that other people could have noticed. Or the opposite - being so fidgety or restless that you have been moving around a lot more than usual: Not at all 9. Thoughts that you would be better off , or of hurting yourself in some way: Not at all How difficult have these problems made it for you to do your work, take care of things at home, or get along with other people?: Not difficult at all Total Score: 3 COPD Knowledge Test Initial COPD is a lung disease that:: Makes it hard to breathe AND gets worse over time In the [place] the term COPD describes 2 main lung conditions:: Emphysema AND pulmonary hypertension The most common lung irritant that causes COPD is:: Cigarette smoke Common signs and symptoms of COPD include:: An ongoing cough/cough that produces a large amount of mucus, AND SOB If you have COPD, what steps can you take?: All of the above Swelling of the ankles is common in COPD:: True Fatigue [tiredness] is common in COPD:: True Wheezing is common in COPD:: True Crushing chest pain is common in COPD:: True Rapid weight loss is common in COPD:: False Breathlessness is a normal response to exercise: True Exercise should be avoided if it makes you short of breath: False All bronchodilators act within 10 minutes: False A spacer device increases the medication to the lungs: True Annual flu vaccine is recommended for pts w/lung disease: True COPD Knowledge Test Total Score:: 12 COPD Assessment Test [CAT] - Questions Never cough = 0, Cough all the time = 5: 2 No phlegm = 0, Chest full of phlegm = 5: 2 No chest tightness = 0, Chest very tight = 5: 2 No breathless w/exertion = 0, Very breathless w/exertion = 5: 4 No limitations w/activity = 0, Very limited w/activity = 5: 3 Confident leaving home = 0, Not at all confident = 5: 0 Sleep soundly = 0, Don't sleep soundly = 5: 0 Lots of energy = 0, No energy at all = 5: 3 Total CAT score:: 16 Self-Efficacy Initial Assessment We would like to know how confident you are in doing certain activities. Please select your confidence level for:: Select your confidence level for the following using the scale 1-10 where 1 is not at all confident and 10 is totally confident. Your score is the average of all 6 responses. Fatigue: How confident are you that you can keep the fatigue caused by your disease from interfering with the things you want to do? Select Number: 6 Physical Discomfort or Pain: How confident are you that you can keep the physical discomfort or pain of your disease from interfering with the things you want to do? Select Number: 8 Emotional Distress: How confident are you that you can keep the emotional distress caused by your disease from interfering with the things you want to do? Select Number: 8 Other Symptoms or Health Problems: How confident are you that you can keep other symptoms or health problems from interfering with the things you want to do? Select Number: 8 Different Tasks and Activities: How confident are you that you can do the different tasks and activities needed to manage your health condition so as to reduce your need to see a doctor? Select Number: 9 Medication: How confident are you that you can do things other than just taking medication to reduce how much your illness affects your everyday life? Select Number: 10 Total Score:: 8 Nutrition Survey - Nutrition Survey Instructions Scoring Instructions: Scoring is as follows: Yes = 1 points. No = 0 point. Patient score that is >/=12 is considered to be at potential nutritional risk and could benefit from a referral to a registered dietitian. - Nutrition Survey Initial Have you lost >10 lbs over the past 2 months without trying?: No Are you following a special diet at home for diabetes, low fat, or low salt?: No Are you interested in meeting with a dietitian for help understanding your diet?: No Do you eat less than 3 meals a day?: Yes Do you eat fatty meats (cyr, sausage, ribs, etc), fried foods, desserts, large amounts of salad dressings, margarine, butter, or cheese most days?: No Do you have food allergies? [Enter types in comment field]: No Do you eat in restaurants more than 3 times a week?: Yes Do you season food with salt, seasoning salt, or garlic salt?: No 03/25/18 1417 <Electronically signed by Santos Medrano CRT, [place], EMMA> Date Santos Medrano CRT, [place], BS Outcome assessment reviewed. Exercise plan approved as documented. Treatment plan and goals support patient needs/abilities. Continue with current plan. I certify the patient demonstrates improvement and remains willing and capable of participation. the patient continues to benefit from pulmonary services/training. The patient may continue at current intensity, endurance and modality and progress per protocol. 03/25/18 1903<Electronically signed by Sumeet Velazquez MD> Cosigner Signature: Date Sumeet Velazquez MD CC: Signed CBC-COMPLETE BLOOD CNT Collected: 02/14/2018 Status: F Source: [facility] NO DIFF 11:25 AM [facility] REPOSITORY Order Comment: Order Date: 02/14/18 Order Info: [id number] - CBC TYPE CODE TESTS RESULT OUT OF RANGE REFERENCE UNITS LAB L100.1000 4.4-11.0 K/mm3 Normal WBC 6.6 LAB L100.1200 4.2-5.4 M/mm3 Low RBC 4.10 LAB L100.1300 12.0-15.0 g/dl Low HGB 11.9 LAB L100.1400 37-47 % Normal HCT 37.6 LAB L100.1500 81-99 fL Normal MCV 91.7 LAB L100.1600 27.0-32.0 pg Normal MCH 29.0 LAB L100.1700 32-36 g/gl Low MCHC 31.6 LAB L100.1810 11.6-14.6 % Normal RDW CV 13.7 LAB L100.1820 35.1-43.9 fl High RDW SD 45.4 LAB L100.1900 150-450 K/mm3 Normal PLT 256 LAB L100.2000 6.2-12.0 fl Normal MPV 9.0 Performed By: #### L100.0500, L500.2500, L501.9520 #### [facility] [address] [place], [address] BASIC METABOLIC Collected: 02/14/2018 Status: F Source: [facility] PROFILE (BMP) 11:25 AM [facility] REPOSITORY Order Comment: Order Date: 02/14/18 Order Info: [id number] - BMP Order Info: [id number] - TSH TYPE CODE TESTS RESULT OUT OF RANGE REFERENCE UNITS LAB L501.0100 74-106 mg/dL High GLU 110 Result Comment: Fasting Glucose result from 100 to 125 mg/dL suggests IMPAIRED HOMEOSTASIS per A.D.A. criteria. Please note revised GLUCOSE reference range effective 2017. LAB L501.1000 7-18 mg/dL High BUN 23 LAB L501.1100 0.55-1.02 mg/dL High CREAT,SERUM 1.19 Result Comment: The validity of the calculated GFR AND GFRAA in patients over 70 years has not been determined. Clinical correlation is essential. LAB L501.1110 >60 mL/min Low EST GFR 48 Result Comment: Non- GFR Calc LAB L501.1115 >60 mL/min Low EST GFR - AA 58 Result Comment: GFR Calc LAB L501.1300 10-20 RATIO Normal BUN/CRE 19.3 LAB L501.2200 8.5-10.1 mg/dL CA Normal 9.2 LAB L501.5300 136-145 mmol/L NA Normal 141 LAB L501.5600 3.5-5.1 mmol/L K Normal 4.4 LAB L501.5900 98-107 mmol/L CL Normal 104 LAB L501.6100 21.0-32.0 mmol/L Normal CO2 32.0 LAB L501.6200 5-15 Normal GAP 5 Performed By: #### L100.0500, L500.2500, L501.9520 #### [facility] [address] [place], [address] THYROID STIM HORMONE Collected: 02/14/2018 Status: F Source: [facility] (TSH) 11:25 AM [facility] REPOSITORY Order Comment: Order Date: 02/14/18 Order Info: [id number] - BMP Order Info: 3016-3 - TSH TYPE CODE TESTS RESULT OUT OF RANGE REFERENCE UNITS LAB L501.9520 0.358-3.74 uIU/mL Low TSH 0.07 Performed By: #### L100.0500, L500.2500, L501.9520 #### [facility] [address] [place], [address] PROGRESS Observed: 12/26/2017 Status: COMPLETED Source: [place] 4:37 PM [facility] REPOSITORY O ID: [id number] Author: Renee Koroma Service: (none) Author Type: Physician Type: Progress Notes Filed: 12/27/2017 8:06 AM Note Text: PATIENT NAME: Marichuy Blankenship. CLINIC NO: [id number]. ATTENDING PHYSICIAN: Renee Koroma MD. DATE OF SERVICE: ?? DIAGNOSIS: Non-small cell lung cancer; s/p left upper lobectomy with chest wall reconstruction, bronchoplasty, arterioplasty. Acute/chronic postthoracotomy pain. ?? HPI: Marichuy Blankenship is a 67 year old female who presents with pleuritic chest pain. ?She is scheduled for chemotherapy treatment next week concurrently with radiation therapy. ?? H/o patient was in her usual state of health when she was referred for a screening CT scan in February 2017. ?This revealed a 4 cm left upper lobe spiculated mass suspicious for malignancy, with a in enlarged mediastinal lymph node. ?Biopsy was done confirming squamous cell carcinoma on March 26, 2017. ?PET scan was done showing uptake within the mass and the mediastinum, however no distant disease was noted. ?An MRI of the brain is pending. ? ?? The patient has no symptoms related to her lung cancer?such as cough, hemoptysis, hoarseness or weight loss. Although she does describe some tenderness in her anterior chest and posterior left shoulder. ??Her pain is there all the time and no alleviating factor except for pain medications. She is able to walk and climb stairs without any limitations?or shortness of breath. ?? Patient has a history of CAD and status post coronary stent placement in 2014. Bronchoscopy/EBUS confirmed benign lymphoid samples from 4R, 4L, 7, and 11L LN stations. PFTs performed on 03/29/17 reported a FEV1 of 1.76L / 79% and DLCO of 57% predicted. MRI brain was negative for metastatic disease. Patient was recommended to have primary modality therapy with concurrent chemotherapy and radiation therapy before surgery. She was seen by Dr. Brannon as well at [facility] for radiation therapy. ?? Previous chemotherapy:Cisplatin/VP16/XRT (05/21/2017 - 07/16/2017) ?? Interim history:?Patient had her surgery with?left upper lobectomy with chest wall reconstruction, bronchoplasty, arterioplasty about?4 months ago. ?She had?chest pain, but is improving. ?? She is less fatigue. She has no cough or shortness of breath on Oxygen saturation is 94% on 2 liter. .?Patient has no headaches or other neurological symptoms.? ?? Patient has no fever, chills or night sweats. She continue to have thoracotomy pain in the left chest area, but manageable. ? ? Appetite: Good.?Energy level: Fair Denies fevers. Mouth:denies sores Resp: Occasional cough with nebulizer treatment, no shortness of breath Cardiac:denies chest pain/palpitations GI:denies abd pain, denies nausea or vomiting, diarrhea :denies dysuria/hematuria Extrem:denies pain Neuro:denies symptoms of neuropathy Skin:denies rashes/lesions Heme:denies bleeding ?? The ROS is otherwise negative. ?? Past medical history, appointments, medications, allergies reviewed. No changes. ?? EXAM: Performance status: 80%; APPEARANCE Well appearing, alert, in no acute distress, well-hydrated, well nourished. BP 119/62 Pulse 71 Temp (Src) 98.3 (Oral) Wt 183 lb (83.0kg) SpO2 94[With oxygen]% MOUTH no mucositis. HEART sinus rhythm,?normal S1 and S2, no murmurs LUNG clear to auscultation; diminished breath left lung base, no wheezing or rhonchi. LYMPH NODES No cervical lymphadenopathy, No supraclavicular lymphadenopathy and No axillary lymphadenopathy. ABDOMEN bowel sounds normoactive, no bruits, soft, non-tender, non-distended, without organomegaly or palpable masses EXTREMITIES no edema. ?no erythema or tenderness NEURO Awake, alert and oriented x 3, Normal gait and No involuntary motions. SKIN Skin color, texture, turgor normal, no suspicious rashes or lesions ?? LABS: Component Latest Ref Rng AND Units 12/21/2017 WBC, Fidel 3.70 - 11.00 k/uL 7.70 RBC, Fidel 3.90 - 5.20 m/uL 4.06 Hemoglobin, Fidel 11.5 - 15.5 g/dL 11.9 Hematocrit, Fidel 36.0 - 46.0 % 37.2 MCV, Fidel 80.0 - 100.0 fL 91.6 MCH, Hope 26.0 - 34.0 pg 29.3 MCHC, Fidel 30.5 - 36.0 g/dL 32.0 RDW, Hope 11.5 - 15.0 % 14.5 Platelet Cnt, Fidel 150 - 400 k/uL 309 MPV, Fidel 9.0 - 12.7 fL 8.7 (L) Absol Gran Count 1.45 - 7.50 k/uL 5.10 Component Latest Ref Rng AND Units 12/21/2017 Sodium, Whole Blood (iSTAT) 132 - 148 mmol/L 141 Potassium, Whole Blood (iSTAT) 3.5 - 5.0 mmol/L 4.2 Chloride, Whole Blood (iSTAT) 98 - 110 mmol/L 103 Ionized Calcium, WB (iSTAT) 1.08 - 1.30 mmol/L 1.17 TCO2, Whole Blood (iSTAT) 23 - 32 mmol/L 26 Glucose, Whole Blood (iSTAT) 65 - 100 mg/dL 120 (H) BUN, Whole Blood (iSTAT) 8 - 25 mg/dL 23 Creatinine, Whole Blood (iSTAT) 0.70 - 1.40 mg/dL 1.10 Anion Gap, Whole Blood (iSTAT) 0 - 15 mmol/L 12 eGFR- >60 eGFR-All Other Races . 50 Albumin 3.9 - 4.9 g/dL 3.9 Bilirubin, Total 0.2 - 1.3 mg/dL 0.3 Bilirubin, Conjug <0.2 mg/dL <0.2 Alkaline Phosphatase 32 - 117 U/L 154 (H) AST 13 - 35 U/L 28 ALT 7 - 38 U/L 22 Protein, Total 6.3 - 8.0 g/dL 7.7 CT CHEST: Comparison: ?08/24/2017 and 07/10/2017 IMPRESSION: Extensive postsurgical changes in the left upper lobe new vague groundglass infiltrates in the right lower lobe and infiltrate in the superior segment of the left lower lobe. ASSESSMENT/PLAN: 1. Cancer of trachea, bronchus, and lung (HCC) - ICD9: 162.8, ICD10: C33, C34.80 Clinical stage IIIA, T3N2, non-small cell (squamous cell) lung cancer of the left upper lobe) -?Patient had a complete pathological response after chemotherapy and radiation. -?s/p left upper lobectomy with chest wall reconstruction, bronchoplasty, arterioplasty ? Patient is slowly recovering from her surgery with chronic thoracotomy pain. ?BRENDA. ?? 2. chronic dyspnea secondary to radiation, surgery and COPD. ?? PLAN: - consider cardiac/pulmonary rehabilitation - follow-up with PCP for pain management. - flu vaccine recommended. - Repeat CXR, CBC and CMP AND OV in 6 months. ? Renee Koroma MD Cc: Dr. Sandie Strong CNOVSP Observed: 12/26/2017 Status: COMPLETED Source: [place] 4:00 PM [facility] REPOSITORY Visit (SP) Office (HEMAWS) MARICHUY BLANKENSHIP ([id number]) 1950 F Date Time Provider Department 12/26/17 4:00 PM RENEE KOROMA During your visit today, we recorded the following information about you: Temperature Pulse Blood pressure Weight 98.3 degrees 71/minute 119/62 83 kg Renee Koroma MD 12/26/2017 4:32 PM Signed Get Flu vaccine Renee Koroma MD 12/27/2017 8:06 AM Signed PATIENT NAME: Marichuy Blankenship. CLINIC NO: [id number]. ATTENDING PHYSICIAN: Renee Koroma MD. DATE OF SERVICE: ?? DIAGNOSIS: Non-small cell lung cancer; s/p left upper lobectomy with chest wall reconstruction, bronchoplasty, arterioplasty. Acute/chronic postthoracotomy pain. ?? HPI: Marichuy Blankenship is a 67 year old female who presents with pleuritic chest pain. ?She is scheduled for chemotherapy treatment next week concurrently with radiation therapy. ?? H/o patient was in her usual state of health when she was referred for a screening CT scan in February 2017. ?This revealed a 4 cm left upper lobe spiculated mass suspicious for malignancy, with a in enlarged mediastinal lymph node. ?Biopsy was done confirming squamous cell carcinoma on March 26, 2017. ?PET scan was done showing uptake within the mass and the mediastinum, however no distant disease was noted. ?An MRI of the brain is pending. ? ?? The patient has no symptoms related to her lung cancer?such as cough, hemoptysis, hoarseness or weight loss. Although she does describe some tenderness in her anterior chest and posterior left shoulder. ??Her pain is there all the time and no alleviating factor except for pain medications. She is able to walk and climb stairs without any limitations?or shortness of breath. ?? Patient has a history of CAD and status post coronary stent placement in 2014. Bronchoscopy/EBUS confirmed benign lymphoid samples from 4R, 4L, 7, and 11L LN stations. PFTs performed on 03/29/17 reported a FEV1 of 1.76L / 79% and DLCO of 57% predicted. MRI brain was negative for metastatic disease. Patient was recommended to have primary modality therapy with concurrent chemotherapy and radiation therapy before surgery. She was seen by Dr. Brannon as well at [facility] for radiation [facility]. ?? Previous chemotherapy:Cisplatin/VP16/XRT (05/21/2017 - 07/16/2017) ?? Interim history:?Patient had her surgery with?left upper lobectomy with chest wall reconstruction, bronchoplasty, arterioplasty about?4 months ago. ?She had?chest pain, but is improving. ?? She is less fatigue. She has no cough or shortness of breath on Oxygen saturation is 94% on 2 liter. .?Patient has no headaches or other neurological symptoms.? ?? Patient has no fever, chills or night sweats. She continue to have thoracotomy pain in the left chest area, but manageable. ? ? Appetite: Good.?Energy level: Fair Denies fevers. Mouth:denies sores Resp: Occasional cough with nebulizer treatment, no shortness of breath Cardiac:denies chest pain/palpitations GI:denies abd pain, denies nausea or vomiting, diarrhea :denies dysuria/hematuria Extrem:denies pain Neuro:denies symptoms of neuropathy Skin:denies rashes/lesions Heme:denies bleeding ?? The ROS is otherwise negative. ?? Past medical history, appointments, medications, allergies reviewed. No changes. ?? EXAM: Performance status: 80%; APPEARANCE Well appearing, alert, in no acute distress, well- hydrated, well nourished. BP 119/62 Pulse 71 Temp (Src) 98.3 (Oral) Wt 183 lb (83.0kg) SpO2 94[With oxygen]% MOUTH no mucositis. HEART sinus rhythm,?normal S1 and S2, no murmurs LUNG clear to auscultation; diminished breath left lung base, no wheezing or rhonchi. LYMPH NODES No cervical lymphadenopathy, No supraclavicular lymphadenopathy and No axillary lymphadenopathy. ABDOMEN bowel sounds normoactive, no bruits, soft, non-tender, non-distended, without organomegaly or palpable masses EXTREMITIES no edema. ?no erythema or tenderness NEURO Awake, alert and oriented x 3, Normal gait and No involuntary motions. SKIN Skin color, texture, turgor normal, no suspicious rashes or lesions ?? LABS: Component Latest Ref Rng ANDamp; Units 12/21/2017 WBC, Hope 3.70 - 11.00 k/uL 7.70 RBC, Fidel 3.90 - 5.20 m/uL 4.06 Hemoglobin, Hope 11.5 - 15.5 g/dL 11.9 Hematocrit, Hope 36.0 - 46.0 % 37.2 MCV, Fidel 80.0 - 100.0 fL 91.6 MCH, Hope 26.0 - 34.0 pg 29.3 MCHC, Fidel 30.5 - 36.0 g/dL 32.0 RDW, Hope 11.5 - 15.0 % 14.5 Platelet Cnt, Fidel 150 - 400 k/uL 309 MPV, Hope 9.0 - 12.7 fL 8.7 (L) Absol Gran Count 1.45 - 7.50 k/uL 5.10 Component Latest Ref Rng ANDamp; Units 12/21/2017 Sodium, Whole Blood (iSTAT) 132 - 148 mmol/L 141 Potassium, Whole Blood (iSTAT) 3.5 - 5.0 mmol/L 4.2 Chloride, Whole Blood (iSTAT) 98 - 110 mmol/L 103 Ionized Calcium, WB (iSTAT) 1.08 - 1.30 mmol/L 1.17 TCO2, Whole Blood (iSTAT) 23 - 32 mmol/L 26 Glucose, Whole Blood (iSTAT) 65 - 100 mg/dL 120 (H) BUN, Whole Blood (iSTAT) 8 - 25 mg/dL 23 Creatinine, Whole Blood (iSTAT) 0.70 - 1.40 mg/dL 1.10 Anion Gap, Whole Blood (iSTAT) 0 - 15 mmol/L 12 eGFR- ANDgt;60 eGFR-All Other Races . 50 Albumin 3.9 - 4.9 g/dL 3.9 Bilirubin, Total 0.2 - 1.3 mg/dL 0.3 Bilirubin, Conjug ANDlt;0.2 mg/dL ANDlt;0.2 Alkaline Phosphatase 32 - 117 U/L 154 (H) AST 13 - 35 U/L 28 ALT 7 - 38 U/L 22 Protein, Total 6.3 - 8.0 g/dL 7.7 CT CHEST: Comparison: ?08/24/2017 and 07/10/2017 IMPRESSION: Extensive postsurgical changes in the left upper lobe new vague groundglass infiltrates in the right lower lobe and infiltrate in the superior segment of the left lower lobe. ASSESSMENT/PLAN: 1. Cancer of trachea, bronchus, and lung (HCC) - ICD9: 162.8, ICD10: C33, C34.80 Clinical stage IIIA, T3N2, non-small cell (squamous cell) lung cancer of the left upper lobe) -?Patient had a complete pathological response after chemotherapy and radiation. -?s/p left upper lobectomy with chest wall reconstruction, bronchoplasty, arterioplasty ? Patient is slowly recovering from her surgery with chronic thoracotomy pain. ?BRENDA. ?? 2. chronic dyspnea secondary to radiation, surgery and COPD. ?? PLAN: - consider cardiac/pulmonary rehabilitation - follow-up with PCP for pain management. - flu vaccine recommended. - Repeat CXR, CBC and CMP ANDamp; OV in 6 months. ? Renee Koroma MD Cc: Dr. Sandie Strong Referring Provider: RENEE KOROMA [[id number]] Allergies As of Date: 12/26/2017 Noted Allergy Reaction CEPHALEXIN 08/19/2009 2 - Rash Date Reviewed: 12/26/2017 Reviewed by: Denton Ocasio - Fully Assessed Reason for Visit: Established Patient [[id number]] Primary Visit Diagnosis:Malignant neoplasm of upper lobe of left lung (HCC) [C34.12] Other Visit Diagnoses:Coronary artery disease involving little shell tribe coronary artery of little shell tribe heart without angina pectoris [I25.10] Other emphysema (HCC) [J43.8] Level of Service: EST PATIENT VISIT LEVEL 3 [[id number]] Disposition: Return in about 6 months (around 06/28/2018). Follow-up and Disposition History Recorded Prescriptions as of 12/26/2017 Sig: ALBUTEROL SULFATE HFA 90 MCG/* Inhale 2 Puffs as instructed * HYDROMORPHONE 4 MG TABLET Take 1 tablet by mouth every * GABAPENTIN 400 MG CAPSULE Take 1 capsule by mouth daily* FENTANYL 12 MCG/HR TRANSDERMA* Apply 1 Patch as directed jacqueline* DOCUSATE SODIUM 100 MG CAPSULE Take 100 mg by mouth three ti* CALCIUM + VITAMIN D ORAL Take by mouth once daily. GUAIFENESIN ER 600 MG TABLET,* Take 1,200 mg by mouth twice * CHOLECALCIFEROL (VITAMIN D3) * Take 2,000 Units by mouth onc* ASPIRIN 81 MG TABLET,DELAYED * Take 81 mg by mouth once fidencio* OMEPRAZOLE 20 MG CAPSULE,OZ* Take 1 capsule by mouth once * FUROSEMIDE 20 MG TABLET Take 1 tablet by mouth once d* POLYSACCHARIDE IRON COMPLEX 1* Take 1 capsule by mouth twice* ALBUTEROL SULFATE 2.5 MG/3 ML* Use 3 mL via nebulizer every * NEBULIZER ACCESSORIES KIT For use with administering al* ATORVASTATIN 80 MG TABLET Take 80 mg by mouth once fidencio* LEVOTHYROXINE 125 MCG CAPSULE Take 1 capsule by mouth once * ESCITALOPRAM 10 MG TABLET Take 1 tablet by mouth once d* METOPROLOL TARTRATE 25 MG TAB* Take 50 mg by mouth twice josafat* ONDANSETRON HCL 8 MG TABLET Take 1 tablet by mouth every * SODIUM CHLORIDE 7 % FOR NEBUL* Inhale 4 mL as instructed twi* Medication notes this encounter FUROSEMIDE 20 MG TABLET >> Denton Ocasio MA 12/26/2017 3:58 PM >> DENTON OCASIO MA SunDec 26, 2017 3:58 PM Taking 1/2 tablet once daily. POLYSACCHARIDE IRON COMPLEX 150 MG IRON CAPSULE >> Denton Ocasio MA 12/26/2017 3:59 PM >> DENTON OCASIO MA [facility] Dec 26, 2017 3:59 PM Taking one capsule daily. ONDANSETRON HCL 8 MG TABLET >> Denton Ocasio MA 12/26/2017 4:02 PM >> DENTON OCASIO MA [facility] Dec 26, 2017 4:02 PM No longer using. SODIUM CHLORIDE 7 % FOR NEBULIZATION >> Denton Ocasio MA 12/26/2017 4:03 PM >> DENTON OCASIO MA [facility] Dec 26, 2017 4:03 PM No longer using. Problem List As Of Date 12/26/2017 Noted Resolved Family History of Malignant Neoplasm of Gastroi*INVALID FOR* Benign Neoplasm of Colon [D12.6] INVALID FOR* Diverticulosis of Colon (without Mention of Hem*INVALID FOR* Cancer of trachea, bronchus, and lung (HCC) [C3*INVALID FOR* Acute post-operative pain [G89.18] INVALID FOR* Priority: G More... Malignant neoplasm of upper lobe of left lung (*INVALID FOR* Priority: A More... Coronary artery disease involving little shell tribe villalobos*INVALID FOR* Priority: C More... Hypothyroidism [E03.9] INVALID FOR* Priority: K More... Atelectasis [J98.11] INVALID FOR* Priority: B More... Essential hypertension [I10] INVALID FOR* Priority: C More... Stress hyperglycemia [R73.9] INVALID FOR* Priority: E More... Emphysema lung (HCC) [J43.9] INVALID FOR* Priority: F More... Depression [F32.9] INVALID FOR* Priority: D More... Major depressive disorder, single episode [F32.*INVALID FOR* Mechanical venous thromboembolism (VTE) prophyl*INVALID FOR* Priority: L More... DISPOSITION AND FOLLOW-UP INVALID FOR* Priority: M More... Esophagitis [K20.9] INVALID FOR* Priority: E More... Malnutrition of mild degree (HCC) [E44.1] INVALID FOR* Priority: B More... Elevated serum creatinine [R79.89] INVALID FOR* Priority: E More... 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 Serum potassium elevated [E87.5] INVALID FOR* Priority: D More... 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 Hypoxia [R09.02] INVALID FOR* Priority: I More... 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 PATIENT GENDER DATA: Female. status: : No status: NO. PATIENT RELEVANT IMPLANT DATA REVIEWED: Not Applicable CONTRAST INDUCED NEPHROPATHY RISK FACTORS: Patient age > 60 years CREATININE: Creatinine Date Value Ref Range Status 09/24/2017 1.04 (H) 0.58 - 0.96 mg/dL Final 07/30/2017 0.95 0.58 - 0.96 mg/dL Final 07/27/2017 1.16 (H) 0.58 - 0.96 mg/dL Final Creatinine, Whole Blood (iSTAT) Date Value Ref Range Status 12/21/2017 1.10 0.70 - 1.40 mg/dL Final 09/03/2017 1.00 0.70 - 1.40 mg/dL Final 08/23/2017 1.10 0.70 - 1.40 mg/dL Final eGFR-All Other Races Date Value Ref Range Status 12/21/2017 50 . Final Comment: eGFR (Estimated GFR) Units of measure: mL/min/1.73 meters squared eGFR is derived from the reexpressed MDRD Study equation using the following parameters: serum creatinine, age, gender and race. The creatinine assay has been calibrated to be traceable to IDMS. An eGFR <60 mL/min/1.73m2 for >3 months is consistent with chronic kidney disease. Refer to KDOQI guidelines for clinical interpretation. In patients with unstable renal function, e.g. those with acute kidney injury, the eGFR may not accurately reflect actual GFR. eGFR- Date Value Ref Range Status 12/21/2017 >60 Final P.O.C.T. RESULTS: POC done: Yes, See Lab Tab December 21, 2017 RADIOLOGIST NOTIFIED?: No ALLERGIES: Reviewed and unchanged CONTRAST ALLERGY: NO. PERIPHERAL IV ACCESS: Ambulatory: IV type: A peripheral IV was started in the Left antecubital site with a Angio cath: 20 gauge., Site assessment: Clean,Dry and Intact, Site disposition Discontinued RADIOLOGY DEPARTMENT: CT; Exam(s) Completed: Chest SIGNED BY: Rose Underwood Ct December 21, 2017 10:[address] CHEST W IVCON Observed: 12/21/2017 Status: F Source: [place] 10:28 AM [facility] [place] REPOSITORY * * *Final Report* * * DATE OF EXAM: Dec 21 2017 10:28AM [facility] [id number] - CT CHEST W IVCON / PROCEDURE REASON: multiple diagnoses * * * * Physician Interpretation * * * * EXAMINATION: CHEST CT WITH CONTRAST Indication: Malignant neoplasm of upper lobe, left bronchus or lung Other acute postprocedural pain Technique: Spiral CT acquisition of the chest from the thoracic inlet to the upper abdomen following IV contrast. MQ: [id number] Contrast: 50 mL Omnipaque [address] Dose-Length Product: 475 mGy*cm CT Dose Reduction Employed: Automated exposure control (AEC) Comparison: 08/24/2017 and 07/10/2017 RESULT: Limitations: None. Lines, tubes, and devices: None. Lung parenchyma and pleura: Nonspecific vague groundglass opacity in the right lobe medially image 4:130. Status post left upper lobe lobectomy with fibrotic changes at the apex. There is new volume loss or infiltrate in the superior segment left lower lobe. This represents progression of the change seen on the prior study. No pleural effusion. Central airways are patent. Thoracic inlet, heart, and mediastinum: No lymphadenopathy in the axillary, mediastinal, or hilar regions. The thoracic aorta and main pulmonary artery are normal in caliber. The cardiac chambers are normal in size. No coronary artery atherosclerotic calcifications are noted, although the study is not optimized for coronary assessment. No pericardial effusion or thickening. Bones and soft tissues: No destructive bone lesion. Nonunited midline sternotomy. Surgical deformity of the left upper rib cage following resection of multiple upper ribs.. Upper abdomen: There is a 5 mm hypodensity in the left lobe of the liver which is unchanged since June. IMPRESSION: Extensive postsurgical changes in the left upper lobe new vague groundglass infiltrates in the right lower lobe and infiltrate in the superior segment of the left lower lobe. Social Media Specialist: MARTIN Transcribe Date/Time: Dec 22 2017 5:51P Dictated by : JENSEN RODRIGES MD This examination was interpreted and the report reviewed and electronically signed by: JENSEN RODRIGES MD on Dec 22 2017 6:00PM EST [id number] FIDEL PICKARDT BMP Collected: 12/21/2017 Status: F Source: [place] 7:55 AM [facility] [place] REPOSITORY TYPE CODE TESTS RESULT OUT OF REFERENCE UNITS RANGE LAB NAWB 132-148 mmol/L Sodium, Whole 141 Bld LAB K1WB 3.5-5.0 mmol/L Potassium,Who 4.2 le Bld LAB CLWB 98-110 mmol/L Chloride, 103 Whole Bld LAB ICAWB 1.08-1.30 mmol/L Ionized 1.17 Calcium, WB Result Comment: Please note: This value represents ionized calcium not total calcium. LAB CO2WB 23-32 mmol/L TCO2, Whole 26 Blood LAB GLUWB 65-100 mg/dL High Glucose, 120 Whole Bld LAB BUNWB 8-25 mg/dL BUN, Whole 23 Blood LAB BCRET 0.70-1.40 mg/dL Creatinine,Wh 1.10 ole Bld LAB AGAPWB 0-15 mmol/L Anion Gap, 12 Whole Bld LAB GFRAA eGFR- >60 Amer. LAB GFRNAA . eGFR-All 50 Other Races Result Comment: eGFR (Estimated GFR) Units of measure: mL/min/1.73 meters squared eGFR is derived from the reexpressed MDRD Study equation using the following parameters: serum creatinine, age, gender and race. The creatinine assay has been calibrated to be traceable to IDMS. An eGFR <60 mL/min/1.73m2 for >3 months is consistent with chronic kidney disease. Refer to KDOQI guidelines for clinical interpretation. In patients with unstable renal function, e.g. those with acute kidney injury, the eGFR may not accurately reflect actual GFR. FIDEL ABS GR + CBC Collected: 12/21/2017 Status: F Source: [place] 7:55 AM [facility] REPOSITORY TYPE CODE TESTS RESULT OUT OF REFERENCE UNITS RANGE LAB WWBC 3.70-11.00 k/uL Hope WBC 7.70 LAB WRBC 3.90-5.20 m/uL [place] RBC 4.06 LAB WHGB 11.5-15.5 g/dL Fidel Hemoglobin 11.9 LAB WHCT 36.0-46.0 % Fidel Hematocrit 37.2 LAB WMCV 80.0-100.0 fL [place] MCV 91.6 LAB WMCH 26.0-34.0 pg Fidel MCH 29.3 LAB WMCHC 30.5-36.0 g/dL Hope MCHC 32.0 LAB WRDW 11.5-15.0 % Hope RDW 14.5 LAB WPLT 150-400 k/uL [place] Platelet Cnt 309 LAB WMPV 9.0-12.7 fL [place] MPV 8.7 Result Comment: Test performed at: [facility], [address] [place] [address]. LAB ABGRAN 1.45-7.50 k/uL Absol Gran 5.10 Count HEPATIC FUNCTN PANEL Collected: 12/21/2017 Status: F Source: [place] 7:55 AM [facility] REPOSITORY TYPE CODE TESTS RESULT OUT OF REFERENCE UNITS RANGE LAB ALB 3.9-4.9 g/dL Albumin 3.9 LAB TBIL 0.2-1.3 mg/dL Bilirubin, Total 0.3 LAB CBIL <0.2 mg/dL Bilirubin,Conjuga <0.2 [place] LAB ALKP 32-117 U/L Alkaline High Phosphatase 154 LAB AST 13-35 U/L AST 28 LAB ALT 7-38 U/L ALT 22 LAB TP 6.3-8.0 g/dL Protein, Total 7.7 Performed By: #### HFP #### [facility] [address] [place], [place] [id number] ERYTHROCYTE SED RATE Collected: 11/26/2017 Status: F Source: [place] 12:58 PM [facility] REPOSITORY TYPE CODE TESTS RESULT OUT OF RANGE REFERENCE UNITS LAB L102.0000 0-30 mm/hr High SED RATE 49 Performed By: #### L101.9900 #### [facility] [address] [place], [address] BASIC METABOLIC Collected: 11/26/2017 Status: F Source: [place] PROFILE (BMP) 12:56 PM [facility] [place] REPOSITORY Order Comment: Order Date: 11/02/17 Order Info: 0667-1 - [facility] Order Info: 35572-9 - [facility] TYPE CODE TESTS RESULT OUT OF RANGE REFERENCE UNITS LAB L501.0100 74-106 mg/dL High GLU 110 Result Comment: Fasting Glucose result from 100 to 125 mg/dL suggests IMPAIRED HOMEOSTASIS per A.D.A. criteria. Please note revised GLUCOSE reference range effective 2017. LAB L501.1000 7-18 mg/dL High BUN 23 LAB L501.1100 0.55-1.02 mg/dL High CREAT,SERUM 1.18 Result Comment: The validity of the calculated GFR AND GFRAA in patients over 70 years has not been determined. Clinical correlation is essential. LAB L501.1110 >60 mL/min Low EST GFR 49 Result Comment: Non- GFR Calc LAB L501.1115 >60 mL/min Low EST GFR - AA 59 Result Comment: GFR Calc LAB L501.1300 10-20 RATIO Normal BUN/CRE 19.5 LAB L501.2200 8.5-10.1 mg/dL CA Normal 9.2 LAB L501.5300 136-145 mmol/L NA Normal 139 LAB L501.5600 3.5-5.1 mmol/L K Normal 4.4 LAB L501.5900 98-107 mmol/L CL Normal 101 LAB L501.6100 21.0-32.0 mmol/L Normal CO2 32.0 LAB L501.6200 5-15 Normal GAP 6 Performed By: #### L500.2500, L501.6710 #### [facility] [address] [place], [place], [address] CRP Collected: 11/26/2017 Status: F Source: [place] 12:56 PM [facility] REPOSITORY Order Comment: Order Date: 11/02/17 Order Info: 0667-1 - BMP Order Info: 01865-7 - CRP TYPE CODE TESTS RESULT OUT OF RANGE REFERENCE UNITS LAB L501.6710 0.0-3.0 mg/L High 4.57 C-REACTIVE PROT Result Comment: C-Reactive Protein (CRP) provides useful information for the diagnosis, therapy and monitoring of inflammatory processes and associated diseases. For the evaluation of Relative Risk for Cardiovascular Disease, a High Sensitivity CRP (HSCRP) should be ordered. Performed By: #### L500.2500, L501.6710 #### [facility] [address] [place], [place], [address] ALLERGIES ALLERGIES DATE TYPE / CODE NAME / CODE REACTION SEVERITY SOURCE 09/03/2017 Drug cephalexin/P67069 Rash Unknown [facility] All[facility]/416 2716(RXNORM) [facility] [id number]([facility] ED CT) Repository 08/19/2009 DRUG CEPHALEXIN RASH [facility] INGREDI/[address] [address]([facility] ED CT) ENCOUNTERS ENCOUNTERS ADMIT/DISCHARGE ACCOUNT ADMITTING ENCOUNTER LOCATION SOURCE NUMBER CLASS 11/06/2018 [id number] Ambulatory [facility]:MFPLAB Repository 10/28/2018 [id number] [facility] ing:MTLAB Repository 07/25/2018 [id number] [facility] [place] Repository 07/15/2018 [id number] [facility] ing:MFPLAB Repository 06/26/2018/06/28/20 [id number] Ambulatory [address] Repository 06/21/2018/06/21/20 [id number] Ambulatory [address] Repository 06/21/2018/06/21/20 [id number] Ambulatory [address] Repository 06/21/2018/07/14/20 [id number] Ambulatory [facility] [facility] [place] Repository 06/14/2018/06/14/20 [id number] Ambulatory [facility] [facility] [place] Repository 05/13/2018/05/14/20 [id number] Ambulatory [facility] [facility] [place] Repository 04/16/2018 [id number] [facility] ing:MFPLAB Repository 04/10/2018/04/13/20 [id number] Ambulatory [facility] [facility] [place] Repository 02/14/2018 [id number] [facility] ing:MFPLAB Repository 12/26/2017/12/28/19 [id number] Ambulatory [address] Repository 12/21/2017/12/26/19 [id number] Ambulatory [address] Repository 12/21/2017/12/22/19 [id number] Ambulatory [address] Repository 11/29/2017 [id number] [facility] ing:[place] Repository E 11/26/2017 [id number] Ambulatory [facility] Hospital ing:MTLAB Repository PAYERS PAYERS ENCOUNTER GUARANTOR PAYER SUBSCRIBER SOURCE 11/06/2018 MARICHUY A Primary MARICHUY A [facility] [id number] Insurance:MEDICARE MOYERDOB: Community [place] [facility] [id number] Number: Repository [address]Qua: 330 [id number] [phone] () Date:2018-11-06 11/06/2018 Secondary MARICHUY A [facility] Insurance:CHAMPVAPoli MOYERDOB: Community cy Number: [id number] Hospital [id number] Repository Date:6236-52-75[address], [place] [address]OT: 11/06/2018 Tertiary NOT GIVENUNK [facility] Insurance:SELF PAY [facility] Number: Effective Repository Date:2018-11-06 10/28/2018 MARICHUY A Primary MARICHUY A [facility] [id number] Insurance:MEDICARE MOYERDOB: Community [place] [facility] [id number] Number: Repository [address]Hkd: 330 [id number] [phone] () Date:2018-10-28 10/28/2018 Secondary MARICHUY A [facility] Insurance:CHAMPVAPoli MOYERDOB: [facility] cy Number: [id number] Hospital [id number] Repository Date:3203-16-15[address], [place] [address]N[place]: 10/28/2018 Tertiary NOT GIVENUNK [facility] Insurance:SELF PAY [facility] Hospital Number: Effective Repository Date:2018-10-28 07/25/2018 Marichuy A Primary Marichuy A [facility] [id number] Insurance:MEDICARE MoyerDOB: Community [place] [facility] [id number] Number: Repository [address]Xpc: 330 [id number] [phone] () Date:2018-03-05 07/25/2018 Secondary Marichuy A [facility] Insurance:CHAMPVAPoli MoyerDOB: [facility] cy Number: [id number] Hospital [id number] Repository Date:4756-61-42[address], [place] [address]KX: 07/25/2018 Tertiary NOT GIVENUNK [facility] Insurance:SELF PAY [facility] Number: Effective Repository Date:2018-07-15 07/15/2018 Marichuy A Primary Marichuy A [facility] [id number] Insurance:MEDICARE MoyerDOB: Community [place] [id number] [place] Number: Repository [address]Cgb: 330 [id number] [phone] (HP) Date:2018-07-15 07/15/2018 Secondary Marichuy A [facility] Insurance:CHAMPVAPoli MoyerDOB: Community cy Number: [id number] Hospital [id number] Repository Date:6401-38-79[address], [place] [address]XM: 07/15/2018 Tertiary NOT GIVENUNK [facility] Insurance:SELF PAY [facility] Number: Effective Repository Date:2018-07-15 06/21/2018 Marichuy A Primary Marichuy A [facility] [id number] Insurance:MEDICARE MoyerDOB: Community [place] [facility] [id number], [place] Number: Repository [address]Zue: 330 [id number] [phone] () Date:2018-03-05 06/21/2018 Secondary Marichuy A [facility] Insurance:CHAMPVAPoli MoyerDOB: Community cy Number: [id number] Hospital [id number] Repository Date:4524-50-36[address], [place] [address]PD: 06/21/2018 Tertiary NOT GIVENUNK [facility] Insurance:SELF PAY [facility] Number: Effective Repository Date:2018-06-15 06/14/2018 Marichuy A Primary Marichuy A [facility] [id number] Insurance:MEDICARE MoyerDOB: Community [place] [facility] [id number] Number: Repository [address]Tqj: 330 [id number] [phone] () Date:2018-03-05 06/14/2018 Secondary Marichuy A [facility] Insurance:CHAMPVAPoli MoyerDOB: Community cy Number: [id number] Hospital [id number] Repository Date:5491-67-24BH [address], [place] [address]WA: 06/14/2018 Tertiary NOT GIVENUNK [facility] Insurance:SELF PAY [facility] Number: Effective Repository Date:2018-05-15 05/13/2018 Marichuy A Primary Marichuy A [facility] [id number] Insurance:MEDICARE MoyerDOB: Community [place] [facility] [id number] Number: Repository [address]Cbf: 330 [id number] [phone] () Date:2018-03-05 05/13/2018 Secondary Marichuy A [facility] Insurance:CHAMPVAPoli MoyerDOB: Community [place] Number: [id number] Hospital [id number] Repository Date:5090-36-99[address], [place] [address]MK: 05/13/2018 Tertiary NOT GIVENUNK [facility] Insurance:SELF PAY [facility] Number: Effective Repository Date:2018-04-14 04/16/2018 Marichuy A Primary Marichuy A [facility] [id number] Insurance:MEDICARE MoyerDOB: Community [place] [facility] [id number], [place] Number: Repository [address]Gus: 330 [id number] [phone] () Date:2018-04-16 04/16/2018 Secondary Marichuy A [facility] Insurance:CHAMPVAPoli MoyerDOB: Community cy Number: [id number] Hospital [id number] Repository Date:5355-12-97OM [address], [place] [address]BQ: 04/16/2018 Tertiary NOT GIVENUNK [facility] Insurance:SELF PAY [facility] Number: Effective Repository Date:2018-04-16 04/10/2018 Marichuy A Primary Marichuy A [facility]idel [id number] Insurance:MEDICARE MoyerDOB: Community [place] [facility] [id number] Number: Repository [address]Bxp: 330 [id number] [phone] () Date:2018-03-05 04/10/2018 Secondary Marichuy A [facility] Insurance:CHAMPVAPoli MoyerDOB: Community cy Number: [id number] Hospital [id number] Repository Date:0806-04-40NP [address], [place] [address]HJ: 04/10/2018 Tertiary NOT GIVENUNK [facility]idel Insurance:SELF PAY [facility] Number: Effective Repository Date:2018-03-05 02/14/2018 Marichuy A Primary Marichuy A [facility] [id number] Insurance:MEDICARE MoyerDOB: Community [place] [facility] [id number] Number: Repository [address]Rtx: [id number] [phone] Date:2018-02-14 () 02/14/2018 Secondary Marichuy A [facility] Insurance:CHAMPVAPoli MoyerDOB: Community cy Number: [id number] Hospital [id number] Repository Date:7830-20-08QW [address], [place] [address]NH: 02/14/2018 Tertiary NOT GIVENUNK [facility] Insurance:SELF PAY [facility] Number: Effective Repository Date:2018-02-14 11/29/2017 Marichuy A Primary Marichuy A [facility]idel [id number] Insurance:MEDICARE MoyerDOB: Community [place] [facility] [id number], [place] Number: Repository [address]Qwb: [id number] [phone] Date:2017-11-29 () 11/29/2017 Secondary Marichuy A [facility] Insurance:CHAMPVAPoli MoyerDOB: Community cy Number: [id number] [facility] [id number] Repository Date:0845-21-58FL [address], [place] [address]SW: 11/29/2017 Tertiary NOT GIVENUNK [facility] Insurance:SELF PAY [facility] Number: Effective Repository Date:2017-11-29 11/26/2017 Marichuy A Primary Marichuy A [facility] [id number] Insurance:MEDICARE MoyerDOB: Community [place] BPolicy [id number] Number: Repository [address]Ixq: [id number] [phone] Date:2017-11-26 () 11/26/2017 Secondary Marichuy A [facility] Insurance:CHAMPVAPoli MoyerDOB: Community cy Number: [id number] Hospital [id number] Repository Date:2298-75-31DW [address], [place] [address]UB: 11/26/2017 Tertiary NOT GIVENUNK [facility] Insurance:SELF PAY [facility] Number: Effective Repository Date:2017-11-26
== END ==
PROVIDERS: Family Provider Family Medicine; PCP Family Medicine; Visit Provider Family Medicine
DX: E03.9 Hypothyroidism, unspecified (principal)
CPT/HCPCS: 36415; 84439; 84443

== ENCOUNTER → 2019-04-25 09:56 | Outpatient (CLI) | payer MEDICARE, OTHER, SELFPAY ==
[2019-04-25 13:35] LABS: ALB/GLOB Ratio 0.8 RATIO (0.9-2.4); AST(SGOT) 25 U/L (15-37); Alanine Aminotransfer ALT/SGPT 39 U/L (13-56); Albumin, Serum 3.5 g/dL (3.2-5.0); Alkaline Phosphatase 197 U/L (45-117); Anion Gap 6 (5-15); BUN 22 mg/dL (7-18); BUN/Creat Ratio 18.2 RATIO (10-20); Chloride 104 mmol/L (98-107); Cholesterol 122 mg/dL (200); Creatinine, Serum 1.21 mg/dL (0.55-1.02); EST Glomerular Filtration Rate 47 mL/min (>60); Est Glom Filt Rate - Afr Amer 57 mL/min (>60); Globulin 4.2 g/dL (2.2-4.2); Glucose 119 mg/dL (74-106); High Density Lipoprotein 47 mg/dL; Potassium 4.4 mmol/L (3.5-5.1); Protein, Total 7.7 g/dL (6.4-8.2); Sodium Level 139 mmol/L (136-145); T4 Free Direct 1.41 ng/dL (0.76-1.46); Thyroid Stim Hormone (TSH) 0.46 uIU/mL (0.358-3.74); Triglycerides 116 mg/dL; Very Low Density Lipoprotein 23 mg/dL (5-40)
== END ==
PROVIDERS: Family Provider Family Medicine; PCP Family Medicine; Visit Provider Family Medicine
DX: E78.5 Hyperlipidemia, unspecified (principal); E03.9 Hypothyroidism, unspecified
CPT/HCPCS: 36415; 80053; 80061; 84439; 84443

== ENCOUNTER → 2019-07-28 13:18 | Outpatient (CLI) | payer MEDICARE, OTHER, SELFPAY ==
--- NOTE | 2019-07-28 13:26 | RAD_ITS ---
STUDY: X-RAY - LEFT WRIST REASON FOR EXAM: Female, 69 years old. Fall 2 days ago. TECHNIQUE: 3 view(s) of the wrist were obtained. COMPARISON: Left forearm, July 28, 2019. FINDINGS: There is a minimally displaced fracture of the distal radius normal distal ulna.. Normal radiocarpal articulation. Normal distal radioulnar articulation. Normal carpal bones. 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 There is degenerative arthrosis of the carpometacarpal articulation of the thumb. Normal second through fifth carpometacarpal articulations. Normal visualized metacarpal bones. There is soft tissues about the wrist. RAD/Wrist min 3 Views IMPRESSION: Minimally displaced fracture of the distal radius. Electronically Signed: Tawanda Jaramillo DO at 14:21 EDT Tel [phone], Service support ,
--- NOTE | 2019-07-28 13:26 | RAD_ITS ---
STUDY: X-RAY - LEFT RADIUS AND ULNA REASON FOR EXAM: Female, 69 years old. Fall 2 days ago. TECHNIQUE: Dictated view(s) of the forearm. COMPARISON: Left wrist, July 28, 2019. Left elbow, February 18, 2016. FINDINGS: There is soft tissue swelling about the wrist. There is a minimally displaced fracture of the distal radial metaphysis with probable extension into the distal interphalangeal joint and radiocarpal joint. Normal visualized ulna. The elbow is intact. RAD/Forearm 2 Views IMPRESSION: A distal radial fracture. Electronically Signed: Tawanda Jaramillo DO at 14:49 EDT Tel [phone], Service support ,
== END ==
PROVIDERS: Family Provider Family Medicine; PCP Family Medicine; Referring Provider Family Medicine; Visit Provider Family Medicine
DX: M79.602 Pain in left arm (principal)
CPT/HCPCS: 73090; 73110

== ENCOUNTER → 2019-08-06 16:09 | Outpatient (CLI) | payer MEDICARE, OTHER, SELFPAY ==
--- NOTE | 2019-08-06 16:19 | RAD_ITS ---
STUDY: X-RAY - LEFT WRIST REASON FOR EXAM: Female, 69 years old. Follow-up fracture. TECHNIQUE: 3 view(s) of the wrist were obtained. COMPARISON: 07/28/2019. FINDINGS: There is demineralization of the radius and ulna. Exam is limited due to superimposition of cast material. There is a well-corticated bony fragment at the tip of the ulna likely sequela of old fracture. There is a healing fracture of the distal radial metaphysis. Alignment is stable. Normal distal radioulnar articulation. Normal carpal bones. 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 There is degenerative arthrosis of the carpometacarpal articulation of the thumb. Normal second through fifth carpometacarpal articulations. Normal visualized metacarpal bones. There is mild soft tissue swelling surrounding the wrist. There is no demonstrated acute fracture. RAD/Wrist min 3 Views IMPRESSION: Diffuse osteopenia. Underlying degenerative disease. Healing fracture of the distal radial metaphysis, stable alignment in the interval. Electronically Signed: Tameka Adams MD at 1:54 EDT , Service support ,
== END ==
PROVIDERS: Family Provider Family Medicine; PCP Family Medicine; Referring Provider Family Medicine; Visit Provider Family Medicine
DX: S52.502A Unspecified fracture of the lower end of left radius, initial encounter for closed fracture (principal); X58.XXXA Exposure to other specified factors, initial encounter; Y93.9 Activity, unspecified; Y92.9 Unspecified place or not applicable; Y99.9 Unspecified external cause status
CPT/HCPCS: 73110

== ENCOUNTER → 2019-09-15 15:19 | Outpatient (CLI) | payer MEDICARE, OTHER, SELFPAY ==
--- NOTE | 2019-09-15 15:24 | RAD_ITS ---
STUDY: X-RAY - LEFT WRIST REASON FOR EXAM: Female, 69 years old. Follow-up fracture TECHNIQUE: 3 view(s) of the wrist were obtained. COMPARISON: 08/06/2019. FINDINGS: Cast has been removed. Sclerotic band across the distal radial metaphysis consistent with healing fracture, showing probable mild impaction. There is also mild dorsal angulation of the articular surface which was not present previously. Stable old displaced ulnar styloid fracture. No dislocation. Demineralization. Prominent degenerative changes at the base of the thumb. RAD/Wrist min 3 Views IMPRESSION: Healing distal radial metaphyseal fracture now in mild dorsal angulation of the articular surface and mild impaction. Electronically Signed: Kj Guillen MD at 15:58 EST , Service support ,
== END ==
PROVIDERS: Family Provider Family Medicine; PCP Family Medicine; Referring Provider Family Medicine; Visit Provider Family Medicine
DX: S52.502A Unspecified fracture of the lower end of left radius, initial encounter for closed fracture (principal); X58.XXXA Exposure to other specified factors, initial encounter; Y93.9 Activity, unspecified; Y92.9 Unspecified place or not applicable; Y99.9 Unspecified external cause status
CPT/HCPCS: 73110

== ENCOUNTER → 2019-11-18 07:01 | Outpatient (CLI) | payer MEDICARE, OTHER, SELFPAY ==
--- NOTE | 2019-11-18 07:05 | CT_ITS ---
STUDY: CT ABDOMEN WITHOUT CONTRAST REASON FOR EXAM: Female, 69 years old. ABD HERNIA, HX-LUNG CA WITH PARTIAL LEFT LUNG REMOVAL-CHEMO AND RAD TX, TOTAL HYSTER, HTN, SD, STENTS RADIATION DOSAGE (If Supplied By Facility): CTDIvol = ( 17.36 ) mGy, DLP = ( 611.20 ) mGycm TECHNIQUE: Transaxial images were obtained without intravenous contrast, and oral contrast. Sagittal and coronal images were reconstructed. Individualized dose optimization techniques were used for this CT. COMPARISON: None. FINDINGS: Volume loss in the left hemithorax in keeping with patient''s history of partial left lung resection. Increased markings at the lung bases slightly worse at the left lung base suggestive of scarring. Coronary artery calcification and stenting. There is a 7.2 mm hypodensity in the posterior aspect of the left lobe of the liver most likely representing a small cyst. Normal gallbladder and extrahepatic biliary system. There is a benign calcified granuloma of the spleen. Normal pancreas. Normal bilateral adrenal glands. Normal right kidney. Normal left kidney. There is a small hiatal hernia. Normal small intestine. Normal colon. The appendix is visualized and appears normal. There is diffuse atherosclerotic calcification of the abdominal aorta, without a demonstrated aneurysm. Normal inferior vena cava. Normal retroperitoneum. There is evidence of an umbilical hernia containing fat. The neck of the hernia measures 2.8 cm. The hernial sac measures 7.3 cm x 5.1 cm. There are degenerative changes of the visualized lumbar spine. CT/Abdomen without IV Contrast IMPRESSION: Volume loss in the left hemithorax in keeping with prior resection of the left lung. Mild scarring at the lung bases. Findings suggestive of a 7.2 mm cyst in the posterior aspect of the left lower liver. Abdominal umbilical hernia containing fat as described. Electronically Signed: Will Sanchez, at 8:58 EST , Service support ,
== END ==
PROVIDERS: PCP Family Medicine; Referring Provider Family Medicine; Visit Provider Family Medicine
DX: K42.9 Umbilical hernia without obstruction or gangrene (principal)
CPT/HCPCS: 74150

== ENCOUNTER → 2020-03-25 11:59 | Outpatient (CLI) | payer MEDICARE, OTHER, SELFPAY ==
--- NOTE | 2020-03-25 12:04 | RAD_ITS ---
STUDY: X-RAY - LEFT WRIST REASON FOR EXAM: Female, 70 years old. CONTINUED PAIN TO WRIST AND LROM -- PT FX''D WRIST 6 MONTHS AGO, FELL AFTER CAST WAS REMOVED TECHNIQUE: 3 view(s) of the wrist were obtained. COMPARISON: September 15, 2019 FINDINGS: Old healed fracture of the distal radius. Old unfused fracture of the ulnar styloid.. Normal radiocarpal articulation. Normal distal radioulnar articulation. Normal carpal bones. Normal carpal articulations. Arthrosis of the carpometacarpal articulation of the thumb. Normal second through fifth carpometacarpal articulations. Normal visualized metacarpal bones. The soft tissue structures are unremarkable. RAD/Wrist min 3 Views IMPRESSION: Old healed fracture of the distal radial shaft and unfused fracture of the ulna styloid. No evidence for acute fracture Electronically Signed: Chidi Vickers MD at 21:13 EDT , Service support ,
== END ==
PROVIDERS: PCP Family Medicine; Referring Provider Family Medicine; Visit Provider Family Medicine
DX: M79.602 Pain in left arm (principal)
CPT/HCPCS: 73110